=== PATIENT | male | born 1945 | race Caucasian/White ===

== ENCOUNTER 2018-02-22 10:11 | Inpatient (IN) | payer OTHER ==
[2018-02-22 11:29] LABS: BASO % 0.7 % (0-2.0); EOS % 2.9 % (0-4.5); HEMATOCRIT 33.8 % (35.4-49); HEMOGLOBIN 11.1 GM/dL (11.7-16.9); LYMPH % 11.9 % (8-40); MCH 29.4 pg (25.7-33.7); MCHC 32.7 g/dl (32.0-35.9); MEAN CELL VOLUME 89.7 fl (80-96); MEAN PLT VOLUME 11.1 fl (7.5-11.1); MONO % 8.1 % (3.8-10.2); NEUT % 76.4 % (42.8-82.8); PLATELET COUNT 251 K/MM3 (134-434); RBC 3.77 M/mm3 (4.00-5.60); RDW 14.2 % (11.9-15.9); WHITE BLOOD COUNT 9.8 K/mm3 (4.0-10.0)
--- NOTE | 2018-02-22 11:41 | PDOC ---
History of Present Illness - General Chief Complaint: Wound Stated Complaint: RIGHT FOOT PAIN Time Seen by Provider: 02/22/18 10:20 History Source: Care Provider Exam Limitations: Dementia - History of Present Illness Initial Comments: 02/22/18 11:38 Patient is a 72-year-old male with past medical history of IDDM, HTN, CABG, stents 3, CVA, HLD, dementia, who presents to the emergency department today with a right toe infection. Patient has dementia and is unable to communicate at baseline. He presents with his family who provides in history of present illness. Family states that they returned from the [place] today. He was treated at a local hospital in the for a toe infection to the right first toe. States that he received ampicillin and the wound was debrided in the hospital. They state that now they believe the toe was worse. Denies fevers, cough, nausea and vomiting. Past History - Travel Traveled outside of the country in the last 30 days: No Close contact w/someone who was outside of country & ill: No - Past Medical History Allergies/Adverse Reactions: Allergies Allergy/AdvReac Type Severity Reaction Status Date / Time No Known Allergies Allergy Verified 02/22/18 10:15 Home Medications: Ambulatory Orders Insulin (Novolog 70/30) [Novolog Mix 70/30 Flexpen -] 30 units SQ BIDI #0 pen Aspirin [ASA -] 81 mg PO HS #30 tab.chew 06/14/16 Atorvastatin Ca [Lipitor] 80 mg PO HS #30 tablet 06/14/16 Carvedilol [Coreg -] 25 mg PO BID #60 tablet 06/14/16 Clopidogrel Bisulfate [Plavix -] 75 mg PO DAILY #30 tablet 06/14/16 Insulin Aspart Prot/Insuln Asp [Novolog Mix 70-30 Flexpen Syrn] 10 unit SQ BIDAC #1 ml 06/14/16 Ranolazine [Ranexa -] 1,000 mg PO BID #60 tab 06/14/16 Spironolactone [Aldactone -] 25 mg PO DAILY #30 tablet 06/14/16 Thiamine HCl [Vitamin B1 -] 100 mg PO DAILY #30 tablet 06/14/16 Valsartan [Diovan] 160 mg PO DAILY #60 tablet 06/14/16 Cardiac Disorders: Yes COPD: No Dementia: Yes (CONFUSION) Diabetes: Yes HTN: Yes Hypercholesterolemia: Yes - Surgical History Cardiac Surgery: Yes (BYPASS AND STENT X 3) - Suicide/Smoking/Psychosocial Hx Smoking Status: No Smoking History: Never smoked Have you smoked in the past 12 months: No Number of Cigarettes Smoked Daily: 0 Hx Alcohol Use: No Drug/Substance Use Hx: No Substance Use Type: None Hx Substance Use Treatment: No Review of Systems - Review of Systems Able to Perform ROS?: No (Dementia) Is the patient limited Bel[place]ian proficient: No *Physical Exam - Vital Signs Last Vital Signs Temp Pulse Resp BP Pulse Ox 98 F 104 H 19 163/95 98 02/22/18 10:15 02/22/18 10:15 02/22/18 10:15 02/22/18 10:15 02/22/18 10:15 - Physical Exam Comments: 02/22/18 11:39 GENERAL: Well developed, well nourished. Awake and alert. No acute distress. HEENT: Normocephalic, atraumatic. PERRLA, EOMI. No conjunctival pallor. Sclera are non- icteric. Moist mucous membranes. Oropharynx is clear. NECK: Supple. Full ROM. No JVD. Carotid pulses 2+ and symmetric, without bruits. No thyromegaly. No lymphadenopathy. CARDIOVASCULAR: Regular rate and rhythm. No murmurs, rubs, or gallops. Distal pulses are 2+ and symmetric. PULMONARY: No evidence of respiratory distress. Lungs clear to auscultation bilaterally. No wheezing, rales or rhonchi. ABDOMINAL: Soft. Non-tender. Non-distended. No rebound or guarding. No organomegaly. Normoactive bowel sounds. MUSCULOSKELETAL Normal range of motion at all joints. No bony deformities or tenderness. No CVA tenderness. EXTREMITIES: R foot is cool to the touch with no palpable pulses. R 1st toe is necrotic with various stages of skin sloughing. No nail present. Clear drainaged noted from the toe. R ankle 1+ pittng edema. No cyanosis. No clubbing. No calf tenderness. SKIN: Warm and dry. Normal capillary refill. No rashes. No jaundice. NEUROLOGICAL: Alert, awake, appropriate. Cranial nerves 2-12 intact. No deficits to light touch and temperature in face, upper extremities and lower extremities. No motor deficits in the in face, upper extremities and lower extremities. Normoreflexic in the upper and lower extremities. Normal speech. Toes are down- going bilaterally. Gait is normal without ataxia. PSYCHIATRIC: Cooperative. Good eye contact. Appropriate mood and affect. ED Treatment Course - LABORATORY CBC & Chemistry Diagram: 02/23/18 07:01 02/23/18 07:01 - ADDITIONAL ORDERS Additional order review: 02/22/18 11:08 RBC 3.77 L MCV 89.7 MCHC 32.7 RDW 14.2 MPV 11.1 Neutrophils % 76.4 Lymphocytes % 11.9 D Monocytes % 8.1 Eosinophils % 2.9 Basophils % 0.7 - RADIOLOGY Radiology Studies Ordered: Category Date Time Status FOOT-RIGHT [RAD] Stat Radiology 02/22/18 10:53 Ordered Medical Decision Making - Medical Decision Making 02/22/18 12:48 Patient is a 72-year-old male with past medical history of IDDM, HTN, CABG, stents 3, CVA, HLD, dementia, who presents to the emergency department today with a worsening right toe infection. On exam, R 1st toe is necrotic and weeping. Foot is cool to the touch with no palpable pedal pulses. Lab work shows no leukocytosis. Troponin is 0.04 and appears to be about baseline when compared to old testing. Glucose elevated at 198. Given worsening infection according to family, pt covered with vancomycin and zosyn and symphony was paged. Consult for ID and vascular surgery placed. Case discussed with Germaine Mendoza [employer] HE[employer] EDUCATOR who accepts for admission. EKG: Rate 90 BPM, NSR, QTc 479 prolonged. T wave inversions in V4-V6. When compared to old EKG from 2016, unchanged. *DC/Admit/Observation/Transfer Diagnosis at time of Disposition: Necrosis of toe, IDDM (insulin dependent diabetes mellitus) - Discharge Dispostion Condition at time of disposition: Stable Decision to Admit order: Yes - Referrals - Patient Instructions - Post Discharge Activity
[2018-02-22 12:06] LABS: INR 1.19 (0.82-1.09); PROTHROMBIN TIME (PATIENT) 13.4 SEC (9.7-13.0)
[2018-02-22] MEDS ORDERED: HALOPERIDOL LACTATE 5 MG/ML ONE (12:55)
[2018-02-22] MEDS ORDERED: LORazepam 2 MG/ML SDV VIAL ONE (12:55)
[2018-02-22] MEDS ORDERED: HALOPERIDOL LACTATE 5 MG/ML IM ONE (12:55)
[2018-02-22 13:14] LABS: URINE APPEARANCE CLEAR; URINE BILIRUBIN NEGATIVE (<2.0 mg/dL); URINE COLOR YELLOW; URINE GLUCOSE (UA) 3+ (NEGATIVE); URINE KETONE NEGATIVE (NEGATIVE); URINE LEUK ESTERASE NEGATIVE (NEGATIVE); URINE NITRITE NEGATIVE (NEGATIVE); URINE UROBILINOGEN NEGATIVE mg/dL (0.2-1.0)
[2018-02-22 13:16] LABS: URINE PROTEIN 3+ (NEGATIVE)
[2018-02-22 13:17] LABS: URINE BACTERIA RARE /hpf (NONE SEEN)
[2018-02-22 14:58] LABS: ALBUMIN 2.8 g/dl (3.4-5.0); ALK PHOS 169 U/L (45-117); ANION GAP 8 (8-16); BILIRUBIN,TOTAL 0.3 mg/dL (0.2-1.0); BLOOD UREA NITROGEN 17 mg/dL (7-18); CALCIUM 8.8 mg/dL (8.5-10.1); CHLORIDE 106 mmol/L (98-107); CO2 24 mmol/L (21-32); GLUCOSE,RANDOM 198 mg/dL (74-106); POTASSIUM 4.6 mmol/L (3.5-5.1); SGOT/AST 39 U/L (15-37); SGPT/ALT 62 U/L (12-78); SODIUM 138 mmol/L (136-145); TOT PROT 7.2 g/dl (6.4-8.2)
[2018-02-22] MEDS ORDERED: VANCOMYCIN 1,000 MG in DEXTROSE 5%-WATER - 250 ML IVPB ONE (15:39)
[2018-02-22] MEDS ORDERED: PIPERACILLIN/TAZOB 3.375 GM 3.375 GM in DEXTROSE 5%-WATER - 50 ML IVPB ONE (15:39)
[2018-02-22] MEDS ORDERED: VANCOMYCIN 1 GRAM (PRE-DOCKED) 1,000 MG/250 ML BAG IVPB ONE (15:59)
[2018-02-22] MEDS ORDERED: PIPERACILLIN/TAZOB 3.375 GM 3.375 GM/50 ML BAG IVPB ONE ×2 (16:00→18:04)
--- NOTE | 2018-02-22 17:17 | HP ---
[email or web address] agency owner # [id number] (Lucero) CHIEF COMPLAINT: Right foot gangrene PCP: none HISTORY OF PRESENT ILLNESS: This is a 72 year old male with PMHx of IDDM, HTN, CABG, CVA, hyperlipidemia, dementia, who presented to the ED with right foot first digit gangrene. All information obtained from daughter, patient had just received Ativan and was sleeping. The daughter reports the patient just arrived [place] the [place] from [place] today and she was concerned about his right big toe. She reports he was treated for an infection in the and had a debridement there as well. She believes the toe is now worse. She states that the patient did not complain of any fevers or chills. ER course was notable for: (1) Temp 98, pulse 104, BP 163/95, resp 19, O2 98% on RA (2) Right foot x-ray with no acute pathology appreciated Recent Travel: returned from today PAST MEDICAL HISTORY: as above PAST SURGICAL HISTORY: as above Social History: Smoking: quit "a long time ago" Alcohol: Quit "20 years ago" Drugs: denies Family History: Allergies No Known Allergies Allergy (Verified 02/22/18 10:15) HOME MEDICATIONS: Home Medications Medication Instructions Recorded Insulin (Novolog 70/30) [Novolog 30 units SQ BIDI #0 pen 06/30/13 Mix 70/30 Flexpen -] Aspirin [ASA -] 81 mg PO HS #30 tab.chew 06/14/16 Atorvastatin Ca [Lipitor] 80 mg PO HS #30 tablet 06/14/16 Carvedilol [Coreg -] 25 mg PO BID #60 tablet 06/14/16 Clopidogrel Bisulfate [Plavix -] 75 mg PO DAILY #30 tablet 06/14/16 Insulin Aspart Prot/Insuln Asp 10 unit SQ BIDAC #1 ml 06/14/16 [Novolog Mix 70-30 Flexpen Syrn] Ranolazine [Ranexa -] 1,000 mg PO BID #60 tab 06/14/16 Spironolactone [Aldactone -] 25 mg PO DAILY #30 tablet 06/14/16 Thiamine HCl [Vitamin B1 -] 100 mg PO DAILY #30 tablet 06/14/16 Valsartan [Diovan] 160 mg PO DAILY #60 tablet 06/14/16 REVIEW OF SYSTEMS: obtained from daughter CONSTITUTIONAL: Absent: fever, chills HEENT: Absent: rhinorrhea, nasal congestion CARDIOVASCULAR: Absent: chest pain, syncope, palpitations, peripheral edema RESPIRATORY: Absent: cough, shortness of breath, dyspnea with exertion, orthopnea, wheezing, stridor, hemoptysis GASTROINTESTINAL: Absent: nausea, vomiting, diarrhea GENITOURINARY: Absent: dysuria, frequency, urgency, hesitancy, hematuria, flank pain MUSCULOSKELETAL: Right big toe with blackish discoloration and malodor. Was [place] in the [place] but it has gotten worse. Daughter is unaware of how long he has had it for Absent: myalgia, arthralgia, joint swelling, back pain, neck pain SKIN: Absent: rash, itching, pallor HEMATOLOGIC/IMMUNOLOGIC: Absent: easy bleeding, easy bruising ENDOCRINE: Absent: unexplained weight gain, unexplained weight loss NEUROLOGIC: Absent: headache, focal weakness or paresthesias, dizziness, unsteady gait, seizure, bladder or bowel incontinence PHYSICAL EXAMINATION Vital Signs - 24 hr 02/22/18 10:15 Temperature 98 F Pulse Rate 104 H Respiratory 19 Rate Blood Pressure 163/95 O2 Sat by Pulse 98 Oximetry (%) Physical Exam: Unable to obtain, patient becomes combative and starts to kick and punch MUSCULOSKELETAL: Right foot big toe with necrosis from tip extending to IP joint. Purulent drainage noted and malodorous. No DP/PT pulses appreciated on the right foot. Right foot/leg warm NEUROLOGICAL: Moving all extremities spontaneously Laboratory Results - last 24 hr 02/22/18 02/22/18 02/22/18 11:08 11:08 11:08 WBC 9.8 RBC 3.77 L Hgb 11.1 L Hct 33.8 L MCV 89.7 MCH 29.4 MCHC 32.7 RDW 14.2 Plt Count 251 D MPV 11.1 Absolute Neuts (auto) 7.5 Neutrophils % 76.4 Lymphocytes % 11.9 D Monocytes % 8.1 Eosinophils % 2.9 Basophils % 0.7 Nucleated RBC % 0 PT with INR 13.40 H INR 1.19 H Sodium Cancelled Potassium Cancelled Chloride Cancelled Carbon Dioxide Cancelled Anion Gap Cancelled BUN Cancelled Creatinine Cancelled Creat Clearance w eGFR Cancelled Random Glucose Cancelled Lactic Acid Calcium Cancelled Total Bilirubin Cancelled AST Cancelled ALT Cancelled Alkaline Phosphatase Cancelled Creatine Kinase Troponin I Total Protein Cancelled Albumin Cancelled Urine Color Urine Appearance Urine pH Ur Specific [place] Urine Protein Urine Glucose (UA) Urine Ketones Urine Blood Urine Nitrite Urine Bilirubin Urine Urobilinogen Ur Leukocyte Esterase Urine WBC (Auto) Urine RBC (Auto) Urine Bacteria 02/22/18 02/22/18 02/22/18 11:08 12:15 13:13 WBC RBC Hgb Hct MCV MCH MCHC RDW Plt Count MPV Absolute Neuts (auto) Neutrophils % Lymphocytes % Monocytes % Eosinophils % Basophils % Nucleated RBC % PT with INR INR Sodium 138 Potassium 4.6 Chloride 106 Carbon Dioxide 24 Anion Gap 8 BUN 17 Creatinine 1.0 Creat Clearance w eGFR > 60 Random Glucose 198 H Lactic Acid Cancelled Calcium 8.8 Total Bilirubin 0.3 AST 39 H D ALT 62 D Alkaline Phosphatase 169 H Creatine Kinase 82 Troponin I 0.04 D Total Protein 7.2 Albumin 2.8 L Urine Color Yellow Urine Appearance Clear Urine pH 7.0 Ur Specific [place] 1.018 Urine Protein 3+ H Urine Glucose (UA) 3+ H Urine Ketones Negative Urine Blood Negative Urine Nitrite Negative Urine Bilirubin Negative Urine Urobilinogen Negative Ur Leukocyte Esterase Negative Urine WBC (Auto) 1 Urine RBC (Auto) 5 Urine Bacteria Rare 02/22/18 02/22/18 13:13 13:13 WBC RBC Hgb Hct MCV MCH MCHC RDW Plt Count MPV Absolute Neuts (auto) Neutrophils % Lymphocytes % Monocytes % Eosinophils % Basophils % Nucleated RBC % PT with INR INR Sodium Potassium Chloride Carbon Dioxide Anion Gap BUN Creatinine Creat Clearance w eGFR Random Glucose Lactic Acid 1.6 Calcium Total Bilirubin AST ALT Alkaline Phosphatase Creatine Kinase Cancelled Troponin I Cancelled Total Protein Albumin Urine Color Urine Appearance Urine pH Ur Specific [place] Urine Protein Urine Glucose (UA) Urine Ketones Urine Blood Urine Nitrite Urine Bilirubin Urine Urobilinogen Ur Leukocyte Esterase Urine WBC (Auto) Urine RBC (Auto) Urine Bacteria Assessment: This is a 72 year old male with PMHx of IDDM, HTN, CABG, CVA, hyperlipidemia, dementia, who presented to the ED with right foot first digit gangrene. Plan: 1) Right foot first digit wet gangrene - F/u wound culture - Started on Vancomycin and Zosyn in the ED - Foot x-ray as above - F/u ESR, CRP - F/u ID consult for further recommendations - F/u surgery consult 2) Non-palpable right foot pulses - Right leg/foot warm - F/u arterial doppler to r/o obstruction 3) IDDM - BGM ACHS - Novolog 70/30 10u sq bid - Novolog sliding scale TIDAC 4) CAD s/p CABG and stenting - Continue ASA - Continue Plavix - Continue Ranexa 5) HTN - Continue Diovan - Continue Aldactone - Continue Coreg 6) Hyperlipidemia - Continue Lipitor 7) F/E/N: - Diabetic/sodium controlled diet - Monitor electrolytes 8) Prophylaxis: - Heparin 5,000u sq tid 9) Dispo: - Requires continued inpatient care CODE STATUS: FULL CODE Visit type - Emergency Visit Emergency Visit: Yes ED Registration Date: 02/22/18 Care time: The patient presented to the Emergency Department on the above date and was hospitalized for further evaluation of their emergent condition. - New Patient This patient is new to me today: Yes Date on this admission: 02/22/18 - Critical Care Critical Care patient: No Hospitalist Screening - Colonoscopy Questionnaire Colonoscopy Questionnaire: Colonoscopy Questionnaire - Patient: 50 - 75 years old and never had a screening colonoscopy: Unknown History of colon or rectal polyps, or CA: Unknown History of IBD, Crohn's disease or UC: Unknown History of abdominal radiation therapy as a child: Unknown - Relative: 1 with colon or rectal CA, or polyps at age 60 or younger: Unknown Colon or rectal CA diagnosed at age 45 or younger: Unknown Multiple relatives with colon or rectal CA: Unknown - Outcome: Screening Result: Negative Screen
[2018-02-22] MEDS ORDERED: PIPERACILLIN/TAZOB 3.375 GM 3.375 GM in DEXTROSE 5%-WATER - 50 ML IVPB SCH (18:00)
[2018-02-22] MEDS: PIPERACILLIN/TAZOB 3.375 GM 3.375 GM in DEXTROSE 5%-WATER - 50 ML IVPB SCH (20:08)
[2018-02-22] MEDS ORDERED: INSULIN SLIDING SCALE (NOVOLOG) 1 VIAL SQ SCH (22:00)
[2018-02-22] MEDS: CARVEDILOL 25 MG TABLET (FP) PO SCH (22:57)
[2018-02-22] MEDS: ASPIRIN 81 MG CHEWABLE TABLETS PO SCH (23:36)
[2018-02-22] MEDS: ATORVASTATIN CA 80 MG TABLET (FP) PO SCH (23:36)
[2018-02-22] MEDS: HEPARIN NA (PORCINE) 5,000 UNITS/ML 1ML VIAL SQ SCH (23:36)
[2018-02-22] MEDS: RANOLAZINE E.R. 1,000 MG TABLET (FP) PO SCH (23:36)
[2018-02-23] MEDS ORDERED: PIPERACILLIN/TAZOBACTAM 3.375 GM VIAL IVPB ONE ×3 (02:07→17:00)
[2018-02-23] MEDS ORDERED: DEXTROSE 5%-WATER - 50 ML IVPB ONE ×3 (02:07→17:00)
[2018-02-23] MEDS: PIPERACILLIN/TAZOB 3.375 GM 3.375 GM in DEXTROSE 5%-WATER - 50 ML IVPB SCH ×3 (02:10→17:05)
[2018-02-23] MEDS: INSULIN (NOVOLOG MIX 70/30) 100 UNITS/ML MDV SQ SCH ×2 (06:39→17:05)
[2018-02-23] MEDS: HEPARIN NA (PORCINE) 5,000 UNITS/ML 1ML VIAL SQ SCH ×3 (06:39→21:33)
[2018-02-23] MEDS: INSULIN SLIDING SCALE (NOVOLOG) 1 VIAL SQ SCH ×3 (06:40→16:43)
[2018-02-23] MEDS ORDERED: INSULIN (NOVOLOG) ASPART 100 UNITS/ML 10ML VIAL ONE ×2 (06:46→10:47)
[2018-02-23 08:19] LABS: BASO % 0.6 % (0-2.0); EOS % 3.5 % (0-4.5); HEMATOCRIT 32.8 % (35.4-49); MCH 29.8 pg (25.7-33.7); MCHC 33.4 g/dl (32.0-35.9); MEAN CELL VOLUME 89.3 fl (80-96); MEAN PLT VOLUME 11.2 fl (7.5-11.1); MONO % 7.3 % (3.8-10.2); NEUT % 80.6 % (42.8-82.8); PLATELET COUNT 210 K/MM3 (134-434); RBC 3.67 M/mm3 (4.00-5.60); WHITE BLOOD COUNT 10.1 K/mm3 (4.0-10.0)
[2018-02-23 08:44] LABS: CHLORIDE 102 mmol/L (98-107); GAMMA GLUTAMYL TRANSPEPTIDASE 212 U/L (5-85); POTASSIUM 5.1 mmol/L (3.5-5.1); SODIUM 135 mmol/L (136-145)
[2018-02-23 08:54] LABS: ALBUMIN 2.5 g/dl (3.4-5.0); ALK PHOS 139 U/L (45-117); ANION GAP 8 (8-16); BILIRUBIN,TOTAL 0.7 mg/dL (0.2-1.0); BLOOD UREA NITROGEN 15 mg/dL (7-18); CALCIUM 8.7 mg/dL (8.5-10.1); CO2 25 mmol/L (21-32); CREATININE 1.1 mg/dL (0.7-1.3); GLUCOSE,RANDOM 237 mg/dL (74-106); PHOSPHOROUS 3.2 mg/dL (2.5-4.9); SGOT/AST 25 U/L (15-37); SGPT/ALT 45 U/L (12-78); TOT PROT 6.7 g/dl (6.4-8.2)
[2018-02-23] MEDS ORDERED: RANOLAZINE E.R. 500 MG TABLET (FP) ONE ×2 (09:21→21:29)
[2018-02-23] MEDS: RANOLAZINE E.R. 1,000 MG TABLET (FP) PO SCH ×2 (09:27→21:34)
[2018-02-23] MEDS: CARVEDILOL 25 MG TABLET (FP) PO SCH ×2 (09:27→21:33)
[2018-02-23] MEDS: VALSARTAN 160 MG TABLET (UD) PO SCH (09:27)
[2018-02-23] MEDS: SPIRONOLACTONE 25 MG TABLET (FP) PO SCH (09:27)
[2018-02-23] MEDS: THIAMINE HCL 100 MG TABLET (FP) PO SCH (09:27)
[2018-02-23] MEDS: CLOPIDOGREL BISULFATE 75 MG TABLET (FP) PO SCH (09:27)
[2018-02-23] MEDS ORDERED: VANCOMYCIN 1 GM PREMIX - 1 GM/200 ML BAG IVPB ONE (10:00)
--- NOTE | 2018-02-23 11:00 | PN ---
Progress Note (short form) - Note Progress Note: Subjective: The patient was seen at the bedside, he has no complaints at this time Current Medications Generic Name Dose Route Start Last Admin Trade Name Jeremiah PRN Reason Stop Dose Admin Aspirin 81 mg 02/22/18 22:00 02/22/18 23:36 Asa - PO Not Given HS MAXIMINO Atorvastatin Calcium 80 mg 02/22/18 22:00 02/22/18 23:36 Lipitor - PO Not Given HS MAXIMINO Carvedilol 25 mg 02/22/18 22:00 02/23/18 09:27 Coreg - PO 25 mg BID MAXIMINO Administration Clopidogrel Bisulfate 75 mg 02/23/18 10:00 02/23/18 09:27 Plavix - PO 75 mg DAILY MAXIMINO Administration Heparin Sodium (Porcine) 5,000 unit 02/22/18 22:00 02/23/18 06:39 Heparin - SQ 5,000 unit TID MAXIMINO Administration Piperacillin Sod/Tazobactam 50 mls @ 100 mls/hr 02/22/18 18:00 Sod 3.375 gm/ Dextrose IVPB Q8H-IV MAXIMINO Protocol Vancomycin HCl 1 gm in 200 mls @ 133.333 mls/hr 02/23/18 10:00 02/23/18 10:11 Vancomycin 1 Gm Premix - IVPB 02/23/18 11:29 133.333 mls/hr ONCE ONE Administration Protocol Insulin Aspart 10 units 02/23/18 07:00 02/23/18 06:39 Novolog Mix 70/30 Vial SQ 10 units BIDAC MAXIMINO Administration Insulin Aspart 1 vial 02/23/18 07:00 02/23/18 10:53 Novolog Vial Sliding Scale - SQ 4 units TIDAC MAXIMINO Administration Protocol Ranolazine 1,000 mg 02/22/18 22:00 02/23/18 09:27 Ranexa - PO 1,000 mg BID MAXIMINO Administration Spironolactone 25 mg 02/23/18 10:00 02/23/18 09:27 Aldactone - PO 25 mg DAILY MAXIMINO Administration Thiamine HCl 100 mg 02/23/18 10:00 02/23/18 09:27 Vitamin B1 - PO 100 mg DAILY MAXIMINO Administration Valsartan 160 mg 02/23/18 10:00 02/23/18 09:27 Diovan - PO 160 mg DAILY MAXIMINO Administration Objective: Vital Signs Period Temp Pulse Resp BP Sys/[place] Pulse Ox Last 24 Hr 97.6 F-98.2 F 96-101 18-20 150-165/88-104 98 Physical Exam: Patient refused again, he became combative Right big toe visualized, some oozing noted. Malodorous CBCD WBC 10.1 K/mm3 (4.0-10.0) H 02/23/18 07:01 RBC 3.67 M/mm3 (4.00-5.60) L 02/23/18 07:01 Hgb 11.0 GM/dL (11.7-16.9) L 02/23/18 07:01 Hct 32.8 % (35.4-49) L 02/23/18 07:01 MCV 89.3 fl (80-96) 02/23/18 07:01 MCHC 33.4 g/dl (32.0-35.9) 02/23/18 07:01 RDW 14.0 % (11.9-15.9) 02/23/18 07:01 Plt Count 210 K/MM3 (134-434) 02/23/18 07:01 MPV 11.2 fl (7.5-11.1) H 02/23/18 07:01 CMP Sodium 135 mmol/L (136-145) L 02/23/18 07:01 Potassium 5.1 mmol/L (3.5-5.1) 02/23/18 07:01 Chloride 102 mmol/L (98-107) 02/23/18 07:01 Carbon Dioxide 25 mmol/L (21-32) 02/23/18 07:01 Anion Gap 8 (8-16) 02/23/18 07:01 BUN 15 mg/dL (7-18) 02/23/18 07:01 Creatinine 1.1 mg/dL (0.7-1.3) 02/23/18 07:01 Creat Clearance w eGFR > 60 (>60) 02/23/18 07:01 Random Glucose 237 mg/dL (74-106) H 02/23/18 07:01 Calcium 8.7 mg/dL (8.5-10.1) 02/23/18 07:01 Total Bilirubin 0.7 mg/dL (0.2-1.0) 02/23/18 07:01 AST 25 U/L (15-37) D 02/23/18 07:01 ALT 45 U/L (12-78) D 02/23/18 07:01 Alkaline Phosphatase 139 U/L (45-117) H D 02/23/18 07:01 Total Protein 6.7 g/dl (6.4-8.2) 02/23/18 07:01 Albumin 2.5 g/dl (3.4-5.0) L 02/23/18 07:01 CARDIAC ENZYMES Creatine Kinase 82 IU/L (39-308) 02/22/18 13:13 Troponin I 0.04 ng/ml (0.00-0.05) D 02/22/18 13:13 Microbiology 02/22/18 12:15 Urine - Urine Clean Catch Urine Culture - Final NO GROWTH OBTAINED 02/22/18 11:00 Toe - Right Hallux Gram Stain - Final Assessment: This is a 72 year old male with PMHx of IDDM, HTN, CABG, CVA, hyperlipidemia, dementia, who presented to the ED with right foot first digit gangrene. Plan: 1) Right foot first digit wet gangrene - F/u wound culture - Started on Vancomycin and Zosyn in the ED - Foot x-ray with no evidence of osteo - Patient has stents but it is unclear if MRI compatible. Will not be able to perform at this time - ESR/CRP elevated - F/u ID consult for further recommendations - F/u surgery consult 2) Non-palpable right foot pulses - Right leg/foot warm - F/u arterial doppler to r/o obstruction 3) IDDM - BGM ACHS - Novolog 70/30 10u sq bid - Novolog sliding scale TIDAC 4) CAD s/p CABG and stenting - Continue ASA - Continue Plavix - Continue Ranexa 5) HTN - Continue Diovan - Continue Aldactone - Continue Coreg 6) Hyperlipidemia - Continue Lipitor 7) F/E/N: - Diabetic/sodium controlled diet - Monitor electrolytes 8) Prophylaxis: - Heparin 5,000u sq tid 9) Dispo: - Requires continued inpatient care CODE STATUS: FULL CODE Visit type - Emergency Visit Emergency Visit: Yes ED Registration Date: 02/22/18 Care time: The patient presented to the Emergency Department on the above date and was hospitalized for further evaluation of their emergent condition. - New Patient This patient is new to me today: No - Critical Care Critical Care patient: No
--- NOTE | 2018-02-23 11:15 | CON.ID ---
Consult Consult Specialty:: infectious diseases Reason for Consultation:: gangrene of the rt toe - History of Present Illness Chief Complaint: gangrene of the rt toe History of Present Illness: 72 year old male with PMHx of IDDM, HTN, CABG, CVA, hyperlipidemia, dementia, admitted with right foot first digit gangrene. All information obtained from daughter, patient sleeping. The daughter reports the patient just arrived to the [place] from [facility] today and she was concerned about his right big toe. She reports [place] and had a debridement there as well. She believes the toe is now worse. She states that the patient did not complain of any fevers or chills. according to them the toe problems has been going on for last 3 months and has worsened they thought that he was not improving that is why they thought they would bring him here - History Source History Provided By: Family Member - Past Medical History Cardio/Vascular: Yes: CAD, HTN, MO - Past Surgical History Past Surgical History: Yes: CABG - Alcohol/Substance Use Hx Alcohol Use: No - Smoking History Smoking history: Never smoked Have you smoked in the past 12 months: No Aproximately how many cigarettes per day: 0 Home Medications - Allergies Allergies/Adverse Reactions: Allergies Allergy/AdvReac Type Severity Reaction Status Date / Time No Known Allergies Allergy Verified 02/22/18 10:15 - Home Medications Home Medications: Ambulatory Orders Insulin (Novolog 70/30) [Novolog Mix 70/30 Flexpen -] 30 units SQ BIDI #0 pen Aspirin [ASA -] 81 mg PO HS #30 tab.chew 06/14/16 Atorvastatin Ca [Lipitor] 80 mg PO HS #30 tablet 06/14/16 Carvedilol [Coreg -] 25 mg PO BID #60 tablet 06/14/16 Clopidogrel Bisulfate [Plavix -] 75 mg PO DAILY #30 tablet 06/14/16 Insulin Aspart Prot/Insuln Asp [Novolog Mix 70-30 Flexpen Syrn] 10 unit SQ BIDAC #1 ml 06/14/16 Ranolazine [Ranexa -] 1,000 mg PO BID #60 tab 06/14/16 Spironolactone [Aldactone -] 25 mg PO DAILY #30 tablet 06/14/16 Thiamine HCl [Vitamin B1 -] 100 mg PO DAILY #30 tablet 06/14/16 Valsartan [Diovan] 160 mg PO DAILY #60 tablet 06/14/16 Review of Systems - Review of Systems Constitutional: reports: No Symptoms Eyes: reports: No Symptoms HENT: reports: No Symptoms Neck: reports: No Symptoms Cardiovascular: reports: No Symptoms Respiratory: reports: No Symptoms Gastrointestinal: reports: No Symptoms Genitourinary: reports: No Symptoms Musculoskeletal: reports: No Symptoms Integumentary: reports: Erythema, Wound (rt toe wound gangrene) Neurological: reports: No Symptoms Endocrine: reports: No Symptoms Hematology/Lymphatic: reports: No Symptoms Psychiatric: reports: No Symptoms Physical Exam Vital Signs: Vital Signs Temperature 97.6 F 02/23/18 05:44 Pulse Rate 96 H 02/23/18 05:44 Respiratory Rate 20 02/23/18 05:44 Blood Pressure 150/94 02/23/18 05:44 O2 Sat by Pulse Oximetry (%) 98 02/22/18 23:00 Constitutional: Yes: No Distress, Calm Cardiovascular: Yes: Regular Rate and Rhythm Respiratory: Yes: Regular, CTA Bilaterally Gastrointestinal: Yes: Normal Bowel Sounds, Soft Musculoskeletal: Yes: WNL Extremities: Yes: Erythema, Other (gangrene of the rt toe) Wound/Incision: Yes: Open to air, Other (gangrene) Neurological: Yes: Alert, Oriented Psychiatric: Yes: Alert, Oriented Labs: CBC, BMP 02/23/18 07:01 02/23/18 07:01 Imaging - Results X-ray: Report Reviewed, Image Reviewed Assessment/Plan his is a 72 year old male with PMHx of IDDM, HTN, CABG, CVA, hyperlipidemia, dementia, who presented to the ED with right foot first digit gangrene. 1) Right foot first digit wet gangrene 2) Non-palpable right foot pulses 3) IDDM 4) CAD s/p CABG and stenting 5) HTN 6) Hyperlipidemia this patient with gangrene of the toe and cold foot rt admitted and started on vanco and zoysn plan vascular to see dopplers on the leg to see if he has any pulse is going to need amputation should do ct scan of the leg will need also angio to see the flow continue abx
--- NOTE | 2018-02-23 16:20 | PN ---
Progress Note (short form) - Note Progress Note: Vascular Surgery Pt seen and examined. Right great toe dry gangrene. Family said at [facility] that he has had this for over three months. On exam, pt does not have any palpable pulses. Foot is warm. CTA ordered to look at runoff into right foot. Will follow Mulugeta Lomeli DO
--- NOTE | 2018-02-23 17:31 | EKG ---
Test Reason : Blood Pressure : / mmHG Vent. Rate : 090 BPM Atrial Rate : 090 BPM P-R Int : 140 ms QRS Dur : 104 ms QT Int : 392 ms P-R-T Axes : 066 -21 166 degrees QTc Int : 479 ms NORMAL SINUS RHYTHM POSSIBLE LEFT ATRIAL ENLARGEMENT LEFT VENTRICULAR HYPERTROPHY PROLONGED QT ABNORMAL ECG WHEN COMPARED WITH ECG OF 12-JUN-2016 08:34, PREMATURE ATRIAL COMPLEXES ARE NO LONGER PRESENT Confirmed by JR SUAREZ, HERBERT ([id number]) on 02/23/2018 5:31:22 PM Referred By: Confirmed By:HERBERT NORRIS MD
[2018-02-23] MEDS: ASPIRIN 81 MG CHEWABLE TABLETS PO SCH (21:33)
[2018-02-23] MEDS: ATORVASTATIN CA 80 MG TABLET (FP) PO SCH (21:33)
[2018-02-24] MEDS ORDERED: PIPERACILLIN/TAZOBACTAM 3.375 GM VIAL IVPB ONE ×3 (01:39→17:06)
[2018-02-24] MEDS ORDERED: DEXTROSE 5%-WATER - 50 ML IVPB ONE ×3 (01:39→17:06)
[2018-02-24] MEDS: PIPERACILLIN/TAZOB 3.375 GM 3.375 GM in DEXTROSE 5%-WATER - 50 ML IVPB SCH ×3 (01:44→17:18)
[2018-02-24] MEDS: HEPARIN NA (PORCINE) 5,000 UNITS/ML 1ML VIAL SQ SCH ×3 (05:56→22:20)
[2018-02-24] MEDS: INSULIN SLIDING SCALE (NOVOLOG) 1 VIAL SQ SCH ×3 (06:09→17:04)
[2018-02-24] MEDS: INSULIN (NOVOLOG MIX 70/30) 100 UNITS/ML MDV SQ SCH ×2 (08:03→16:57)
--- NOTE | 2018-02-24 09:00 | PN ---
Progress Note (short form) - Note Progress Note: CTA with bilat LE runoff completed. Awaiting official results. Vascular surgery to cont following.
[2018-02-24] MEDS ORDERED: RANOLAZINE E.R. 500 MG TABLET (FP) ONE ×2 (09:51→22:18)
[2018-02-24] MEDS ORDERED: PT OWN MED DRAWER 7, Y5N ONE (09:52)
[2018-02-24] MEDS: VALSARTAN 160 MG TABLET (UD) PO SCH (09:55)
[2018-02-24] MEDS: THIAMINE HCL 100 MG TABLET (FP) PO SCH (09:55)
[2018-02-24] MEDS: CLOPIDOGREL BISULFATE 75 MG TABLET (FP) PO SCH (09:55)
[2018-02-24] MEDS: CARVEDILOL 25 MG TABLET (FP) PO SCH ×2 (09:56→22:20)
[2018-02-24] MEDS: VANCOMYCIN 1,250 MG in DEXTROSE 5%-WATER - 250 ML IVPB SCH (09:56)
[2018-02-24] MEDS: SPIRONOLACTONE 25 MG TABLET (FP) PO SCH (09:56)
[2018-02-24] MEDS: RANOLAZINE E.R. 1,000 MG TABLET (FP) PO SCH ×2 (09:57→22:21)
--- NOTE | 2018-02-24 15:04 | PN ---
Progress Note, Physician History of Present Illness: had episodes of vomiting got imaging studies done awaitng for reports - Current Medication List Current Medications: Active Medications Aspirin (Asa -) 81 mg PO HS [facility] Last Admin: 02/23/18 21:33 Dose: 81 mg Atorvastatin Calcium (Lipitor -) 80 mg PO HS [facility] Last Admin: 02/23/18 21:33 Dose: 80 mg Carvedilol (Coreg -) 25 mg PO BID [facility] Last Admin: 02/24/18 09:56 Dose: 25 mg Clopidogrel Bisulfate (Plavix -) 75 mg PO DAILY [facility] Last Admin: 02/24/18 09:55 Dose: 75 mg Heparin Sodium (Porcine) (Heparin -) 5,000 unit SQ TID [facility] Last Admin: 02/24/18 13:06 Dose: 5,000 unit Vancomycin HCl 1,250 mg/ (Dextrose) 250 mls @ 250 mls/2 hr IVPB DAILY [facility]; Protocol Last Admin: 02/24/18 09:56 Dose: 250 mls/2 hr Piperacillin Sod/Tazobactam (Sod 3.375 gm/ Dextrose) 50 mls @ 100 mls/hr IVPB Q8H-IV [facility]; Protocol Last Admin: 02/24/18 09:56 Dose: 100 mls/hr Insulin Aspart (Novolog Mix 70/30 Vial) 10 units SQ BIDAC [facility] Last Admin: 02/24/18 08:03 Dose: 10 units Insulin Aspart (Novolog Vial Sliding Scale -) 1 vial SQ TIDAC [facility]; Protocol Last Admin: 02/24/18 10:56 Dose: Not Given Ranolazine (Ranexa -) 1,000 mg PO BID [facility] Last Admin: 02/24/18 09:57 Dose: 1,000 mg Spironolactone (Aldactone -) 25 mg PO DAILY [facility] Last Admin: 02/24/18 09:56 Dose: 25 mg Thiamine HCl (Vitamin B1 -) 100 mg PO DAILY [facility] Last Admin: 02/24/18 09:55 Dose: 100 mg Valsartan (Diovan -) 160 mg PO DAILY [facility] Last Admin: 02/24/18 09:55 Dose: 160 mg - Objective Vital Signs: Vital Signs Temperature 98.1 F 02/24/18 10:00 Pulse Rate 74 02/24/18 10:00 Respiratory Rate 20 02/24/18 10:00 Blood Pressure 120/66 02/24/18 10:00 O2 Sat by Pulse Oximetry (%) 98 02/24/18 09:00 Constitutional: Yes: Calm, Mild Distress Cardiovascular: Yes: Regular Rate and Rhythm Respiratory: Yes: Regular, CTA Bilaterally Musculoskeletal: Yes: WNL Extremities: Yes: Other Neurological: Yes: Alert Psychiatric: Yes: Alert Labs: CBC, BMP 02/23/18 07:01 02/23/18 07:01 INR, PTT INR 1.19 (0.82-1.09) H 02/22/18 11:08 Assessment/Plan his is a 72 year old male with PMHx of IDDM, HTN, CABG, CVA, hyperlipidemia, dementia, who presented to the ED with right foot first digit gangrene. 1) Right foot first digit wet gangrene 2) Non-palpable right foot pulses 3) IDDM 4) CAD s/p CABG and stenting 5) HTN 6) Hyperlipidemia plan continue abx await for identification of the bacteria rest continue current mgmt patient needs probably amputation
[2018-02-24] MEDS ORDERED: MAG HYDROX/AL HYDROX/SIMETH -MYLANTA- ORAL SUSPENSION PO ONE (16:30)
--- NOTE | 2018-02-24 16:34 | PN ---
Progress Note (short form) - Note Progress Note: Subjective: The patient was seen at the bedside, he has no complaints at this time Current Medications Generic Name Dose Route Start Last Admin Trade Name Jeremiah PRN Reason Stop Dose Admin Al Hydroxide/Mg Hydroxide 30 ml 02/24/18 16:30 Mylanta Suspension - PO 02/24/18 16:31 ONCE ONE Aspirin 81 mg 02/22/18 22:00 02/23/18 21:33 Asa - PO 81 mg HS [facility] Administration Atorvastatin Calcium 80 mg 02/22/18 22:00 02/23/18 21:33 Lipitor - PO 80 mg HS [facility] Administration Carvedilol 25 mg 02/22/18 22:00 02/24/18 09:56 Coreg - PO 25 mg BID [facility] Administration Clopidogrel Bisulfate 75 mg 02/23/18 10:00 02/24/18 09:55 Plavix - PO 75 mg DAILY [facility] Administration Heparin Sodium (Porcine) 5,000 unit 02/22/18 22:00 02/24/18 13:06 Heparin - SQ 5,000 unit TID [facility] Administration Vancomycin HCl 1,250 mg/ 250 mls @ 250 mls/2 hr 02/24/18 10:00 02/24/18 09:56 Dextrose IVPB 250 mls/2 hr DAILY [facility] Administration Protocol Piperacillin Sod/Tazobactam 50 mls @ 100 mls/hr 02/23/18 18:00 02/24/18 09:56 Sod 3.375 gm/ Dextrose IVPB 100 mls/hr Q8H-IV [facility] Administration Protocol Insulin Aspart 10 units 02/23/18 07:00 02/24/18 08:03 Novolog Mix 70/30 Vial SQ 10 units BIDAC [facility] Administration Insulin Aspart 1 vial 02/23/18 07:00 02/24/18 10:56 Novolog Vial Sliding Scale - SQ Not Given TIDAC [facility] Protocol Ranolazine 1,000 mg 02/22/18 22:00 02/24/18 09:57 Ranexa - PO 1,000 mg BID [facility] Administration Spironolactone 25 mg 02/23/18 10:00 02/24/18 09:56 Aldactone - PO 25 mg DAILY [facility] Administration Thiamine HCl 100 mg 02/23/18 10:00 02/24/18 09:55 Vitamin B1 - PO 100 mg DAILY [facility] Administration Valsartan 160 mg 02/23/18 10:00 02/24/18 09:55 Diovan - PO 160 mg DAILY [facility] Administration Objective: Vital Signs Period Temp Pulse Resp BP Sys/[place] Pulse Ox Last 24 Hr 98.0 F-98.6 F 69-88 18-20 110-138/62-71 97-98 Physical Exam: Patient refused again Right big toe visualized. Malodorous CBCD WBC 10.1 K/mm3 (4.0-10.0) H 02/23/18 07:01 RBC 3.67 M/mm3 (4.00-5.60) L 02/23/18 07:01 Hgb 11.0 GM/dL (11.7-16.9) L 02/23/18 07:01 Hct 32.8 % (35.4-49) L 02/23/18 07:01 MCV 89.3 fl (80-96) 02/23/18 07:01 MCHC 33.4 g/dl (32.0-35.9) 02/23/18 07:01 RDW 14.0 % (11.9-15.9) 02/23/18 07:01 Plt Count 210 K/MM3 (134-434) 02/23/18 07:01 MPV 11.2 fl (7.5-11.1) H 02/23/18 07:01 CMP Sodium 135 mmol/L (136-145) L 02/23/18 07:01 Potassium 5.1 mmol/L (3.5-5.1) 02/23/18 07:01 Chloride 102 mmol/L (98-107) 02/23/18 07:01 Carbon Dioxide 25 mmol/L (21-32) 02/23/18 07:01 Anion Gap 8 (8-16) 02/23/18 07:01 BUN 15 mg/dL (7-18) 02/23/18 07:01 Creatinine 1.1 mg/dL (0.7-1.3) 02/23/18 07:01 Creat Clearance w eGFR > 60 (>60) 02/23/18 07:01 Random Glucose 237 mg/dL (74-106) H 02/23/18 07:01 Calcium 8.7 mg/dL (8.5-10.1) 02/23/18 07:01 Total Bilirubin 0.7 mg/dL (0.2-1.0) 02/23/18 07:01 AST 25 U/L (15-37) D 02/23/18 07:01 ALT 45 U/L (12-78) D 02/23/18 07:01 Alkaline Phosphatase 139 U/L (45-117) H D 02/23/18 07:01 Total Protein 6.7 g/dl (6.4-8.2) 02/23/18 07:01 Albumin 2.5 g/dl (3.4-5.0) L 02/23/18 07:01 CARDIAC ENZYMES Creatine Kinase 82 IU/L (39-308) 02/22/18 13:13 Troponin I 0.04 ng/ml (0.00-0.05) D 02/22/18 13:13 Microbiology 02/22/18 11:00 Toe - Right Hallux Gram Stain - Final 02/22/18 11:00 Toe - Right Hallux Wound Culture - Preliminary Non Lactose Fermenting Gnb Lactose Fermenting Neg Bacilli Non Lactose Fermenting Gnb#2 Staphylococcus Latex Coag Pos Group D Strep Or Entero Coccus 02/22/18 11:00 Blood - Peripheral Venous Blood Culture - Preliminary NO GROWTH OBTAINED AFTER 48 HOURS, INCUBATION TO CONTINUE FOR 3 DAYS. 02/22/18 11:00 Blood - Peripheral Venous Blood Culture - Preliminary NO GROWTH OBTAINED AFTER 48 HOURS, INCUBATION TO CONTINUE FOR 3 DAYS. 02/22/18 12:15 Urine - Urine Clean Catch Urine Culture - Final NO GROWTH OBTAINED Assessment: This is a 72 year old male with PMHx of IDDM, HTN, CABG, CVA, hyperlipidemia, dementia, who presented to the ED with right foot first digit gangrene. Plan: 1) Right foot first digit dry gangrene - F/u wound culture - Continue Vancomycin and Zosyn - Foot x-ray with no evidence of osteo - Patient has stents but it is unclear if MRI compatible. Will not be able to perform MRI at this time - ESR/CRP elevated - Appreciate ID consult for further recommendations - Appreciate surgery consult 2) Non-palpable right foot pulses - Right leg/foot warm - CTA with runoff: diffuse aortoiliac and bilateral lower extremity atherosclerotic disease most severe and extensive in the femoropopliteal and infrapopliteal arteries with essentially no vessel runoff in the right lower extremity and one vessel runoff in the left lower extremity - Discussed with Dr. Lomeli, for possible angio tomorrow - F/u cards consult for clearance 3) IDDM - BGM ACHS - Novolog 70/30 10u sq bid - Novolog sliding scale TIDAC 4) CAD s/p CABG and stenting - Continue ASA - Continue Plavix - Continue Ranexa 5) HTN - Continue Diovan - Continue Aldactone - Continue Coreg 6) Hyperlipidemia - Continue Lipitor 7) F/E/N: - Diabetic/sodium controlled diet - Monitor electrolytes 8) Prophylaxis: - Heparin 5,000u sq tid 9) Dispo: - Requires continued inpatient care CODE STATUS: FULL CODE Visit type - Emergency Visit Emergency Visit: Yes ED Registration Date: 02/22/18 Care time: The patient presented to the Emergency Department on the above date and was hospitalized for further evaluation of their emergent condition. - New Patient This patient is new to me today: No - Critical Care Critical Care patient: No
[2018-02-24] MEDS ORDERED: DOCUSATE SODIUM 100 MG CAPSULE (FP) PO PRN (16:54)
--- NOTE | 2018-02-24 17:33 | CON.CARD ---
Consult Consult Specialty:: cardiology Reason for Consultation:: clearance for LE angiography - History of Present Illness Chief Complaint: Pt is lethargic; when asked how he feels, says "good" softly, then lapses back to snoring. Daughter and are at bedside. History of Present Illness: Patient is a 72-year-old male ([facility]) with past medical history of IDDM, systolic CHF, HTN, CABG ?2008 after [place], stents ?3, HLD, CVA x 5, PAD , dementia, who presents to the emergency department today with a right toe infection. Patient has dementia and is unable to communicate at baseline. He presents with his family who provides in history of present illness. Family states that they returned from the [facility] today. He was treated at a local hospital in the for a toe infection to the right first toe. States that he received ampicillin and the wound was debrided in the hospital. They state that now they believe the toe was worse. Denies fevers, cough, nausea and vomiting. 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 Cardio/Vascular: Yes: CAD, CHF (systolic), HTN, [place] Psych: Yes: Other Musculoskeletal: Yes: Other (reported right-sided weakness post-CVA (family states; pt uncooperative)) - Past Surgical History Past Surgical History: Yes: CABG, Stent (2012) - Alcohol/Substance Use Hx Alcohol Use: No - Smoking History Smoking history: Never smoked Have you smoked in the past 12 months: No Aproximately how many cigarettes per day: 0 - Social History History of Recent Travel: Yes Home Medications - Allergies Allergies/Adverse Reactions: Allergies Allergy/AdvReac Type Severity Reaction Status Date / Time No Known Allergies Allergy Verified 02/22/18 10:15 - Home Medications Home Medications: Ambulatory Orders Insulin (Novolog 70/30) [Novolog Mix 70/30 Flexpen -] 30 units SQ BIDI #0 pen Aspirin [ASA -] 81 mg PO HS #30 tab.chew 06/14/16 Atorvastatin Ca [Lipitor] 80 mg PO HS #30 tablet 06/14/16 Carvedilol [Coreg -] 25 mg PO BID #60 tablet 06/14/16 Clopidogrel Bisulfate [Plavix -] 75 mg PO DAILY #30 tablet 06/14/16 Insulin Aspart Prot/Insuln Asp [Novolog Mix 70-30 Flexpen Syrn] 10 unit SQ BIDAC #1 ml 06/14/16 Ranolazine [Ranexa -] 1,000 mg PO BID #60 tab 06/14/16 Spironolactone [Aldactone -] 25 mg PO DAILY #30 tablet 06/14/16 Thiamine HCl [Vitamin B1 -] 100 mg PO DAILY #30 tablet 06/14/16 Valsartan [Diovan] 160 mg PO DAILY #60 tablet 06/14/16 Review of Systems Unable to obtain ROS, reason: barely speaks - Review of Systems Constitutional: reports: Lethargy, Weakness Eyes: reports: Other (does not open eyes; family says he has right eye visual problems) HENT: reports: No Symptoms Neck: reports: Decreased ROM Cardiovascular: reports: No Symptoms Respiratory: reports: No Symptoms Gastrointestinal: reports: No Symptoms Genitourinary: reports: No Symptoms Breasts: reports: No Symptoms Reported Musculoskeletal: reports: Muscle Weakness Integumentary: reports: No Symptoms Neurological: reports: Weakness Psychiatric: reports: Other - Risk Factors Known Risk Factors: Yes: Age, Diabetes Mellitus, Gender, Hypercholesterolemia, Hypertension, Physical Inactivity, Prior UT /Emb Stroke, Other (systolic CHF) Vital Signs: Vital Signs Temperature 98.6 F 02/24/18 15:05 Pulse Rate 79 02/24/18 15:05 Respiratory Rate 20 02/24/18 10:00 Blood Pressure 122/71 02/24/18 15:05 O2 Sat by Pulse Oximetry (%) 98 02/24/18 09:00 Constitutional: Yes: Other (lethargic; barely responds) Eyes: Yes: Other (does not open) HENT: Yes: WNL Neck: Yes: Decreased ROM Respiratory: Yes: Regular Gastrointestinal: Yes: Soft Renal/: No: Anuria Cardiovascular: Yes: Regular Rate and Rhythm JVD: No Carotid Bruit: No PMI: Non-Displaced Heart Sounds: Yes: S1, S2 Murmur: Yes: Systolic Murmur, Grade 2 Musculoskeletal: Yes: Muscle Weakness Extremities: Yes: Cool Edema: Yes Edema: LLE: Trace, RLE: Trace Peripheral Pulses WNL: No Peripheral Pulses: 1+ Left Doralis Pedis, 1+ Right Dorsalis Pedis Integumentary: Yes: Other (right great toe black) Neurological: Yes: Lethargy, Weakness Psychiatric: Yes: Other (reported dementia, especially after CVAs) - Other Data Labs, Other Data: CBC, BMP 02/23/18 07:01 02/23/18 07:01 INR, PTT INR 1.19 (0.82-1.09) H 02/22/18 11:08 Abnormal Lab Results 02/23/18 07:01 Sodium 135 L Random Glucose 237 H GGT 212 H Alkaline Phosphatase 139 H D Albumin 2.5 L HDL Cholesterol 30 L Echo: Report Reviewed Prior Cardiac Procedures: CABG, Cardiac Catheterization, PTCA with Stent Ejection Fraction %: LVEF < 40 % Imaging - Results EKG: Image Reviewed (NSR; LAE; LVH) Problem List - Problems (1) IDDM (insulin dependent diabetes mellitus) Code(s): E11.9 - TYPE 2 DIABETES MELLITUS WITHOUT COMPLICATIONS; Z79.4 - BANK BOSS (CURRENT) USE OF INSULIN (2) Necrosis of toe Assessment/Plan: CTA results noted: extensive bilateral arterial disease. See "Coronary artery disease" regarding prior coronary angiogram. Code(s): I96 - GANGRENE, NOT ELSEWHERE CLASSIFIED (3) Chronic systolic (congestive) heart failure Assessment/Plan: Moderately reduced LVEF noted on 2015 ECHO; f/u study in am. Presently on valsartan, carvedilol, Ranexa, and spironolactone. F/u BUN/Cr, Is and Os, daily weight, electrolytes. Code(s): I50.22 - CHRONIC SYSTOLIC (CONGESTIVE) HEART FAILURE (4) Coronary artery disease Assessment/Plan: Pt had CABG in ?2007 after [place], per family. Discussed case with Dr. Stef Mackey who, in 2012, performed coronary angiogram. Triple-vessel disease was noted; an LAD stent was placed, and plans were made for staged PCI of RCA and JOE; pt, however, did not return for f/u. Will obtain records of coronary angiogram. These findings should be taken into consideration prior to decision on LE procedure. Code(s): I25.10 - ATHSCL HEART DISEASE OF [place] CORONARY ARTERY W/O ANG PCTRS Qualifiers: Coronary Disease-Associated Artery/Lesion type: [place] artery [place] vs. transplanted heart: [place] heart Associated angina: without angina Qualified Code(s): I25.10 - Atherosclerotic heart disease of [place] coronary artery without angina pectoris (5) Dementia Assessment/Plan: see under "CVA" Code(s): F03.90 - UNSPECIFIED DEMENTIA WITHOUT BEHAVIORAL DISTURBANCE (6) S/P CABG (coronary artery bypass graft) Assessment/Plan: see under "coronary artery disease" Code(s): Z95.1 - PRESENCE OF AORTOCORONARY BYPASS GRAFT (7) Vision loss of right eye Code(s): H54.61 - UNQUALIFIED VISUAL LOSS, RIGHT EYE, NORMAL VISION LEFT EYE (8) Hyperlipidemia Assessment/Plan: On atorvastatin 80 mg daily; LDL 76; HDL 30 mg/dL. Code(s): E78.5 - HYPERLIPIDEMIA, UNSPECIFIED (9) CVA (cerebral vascular accident) Assessment/Plan: Family states pt has had five CVAs over the past several years, and believes his "dementia" is due to these ([address] noted multiple cortical infarcts, some new since 2014). f/u with neurologist. Code(s): I63.9 - CEREBRAL INFARCTION, UNSPECIFIED
[2018-02-24 19:18] LABS: CHOLESTEROL 111 mg/dL (50-200); HDL CHOLESTEROL 30 mg/dL (40-60); TRIGLYCERIDES 98 mg/dL (35-160)
[2018-02-24] MEDS: ASPIRIN 81 MG CHEWABLE TABLETS PO SCH (22:20)
[2018-02-24] MEDS: ATORVASTATIN CA 80 MG TABLET (FP) PO SCH (22:20)
[2018-02-25] MEDS ORDERED: PIPERACILLIN/TAZOBACTAM 3.375 GM VIAL IVPB ONE ×2 (00:19→09:57)
[2018-02-25] MEDS ORDERED: DEXTROSE 5%-WATER - 50 ML IVPB ONE ×2 (00:19→09:57)
[2018-02-25] MEDS: PIPERACILLIN/TAZOB 3.375 GM 3.375 GM in DEXTROSE 5%-WATER - 50 ML IVPB SCH ×3 (01:02→19:00)
[2018-02-25] MEDS: HEPARIN NA (PORCINE) 5,000 UNITS/ML 1ML VIAL SQ SCH ×3 (05:45→21:52)
[2018-02-25] MEDS: INSULIN (NOVOLOG MIX 70/30) 100 UNITS/ML MDV SQ SCH ×2 (06:32→17:20)
[2018-02-25] MEDS: INSULIN SLIDING SCALE (NOVOLOG) 1 VIAL SQ SCH ×3 (06:32→17:20)
--- NOTE | 2018-02-25 09:47 | PN ---
Progress Note (short form) - Note Progress Note: Vascular Surgery Pt seen and examined. Right great toe gangrene for some time. Cardiology note reviewed. Seems like pt needs more intervention for his heart. -- as he did not come back in 2012 for his staged procedures for further stent placements in his heart. CTA reviewed and pt has 70-90% stenosis in right SFA and popliteal artery. Pt has collateral circulation going to foot. No inline flow. The toe is dry and not wet. Will hold off angiogram/angioplasty right now. Please address his cardiac issues first. The foot is stable and does not need emergency intervention. Mulugeta Lomeli DO
[2018-02-25] MEDS ORDERED: RANOLAZINE E.R. 500 MG TABLET (FP) ONE ×2 (09:56→21:47)
[2018-02-25] MEDS: CLOPIDOGREL BISULFATE 75 MG TABLET (FP) PO SCH (10:28)
[2018-02-25] MEDS: SPIRONOLACTONE 25 MG TABLET (FP) PO SCH (10:28)
[2018-02-25] MEDS: VANCOMYCIN 1,250 MG in DEXTROSE 5%-WATER - 250 ML IVPB SCH (10:28)
[2018-02-25] MEDS: CARVEDILOL 25 MG TABLET (FP) PO SCH ×2 (10:28→21:52)
[2018-02-25] MEDS: THIAMINE HCL 100 MG TABLET (FP) PO SCH (10:28)
[2018-02-25] MEDS: VALSARTAN 160 MG TABLET (UD) PO SCH (10:28)
[2018-02-25] MEDS: RANOLAZINE E.R. 1,000 MG TABLET (FP) PO SCH ×2 (10:29→21:52)
--- NOTE | 2018-02-25 11:52 | PN ---
Progress Note, Physician History of Present Illness: Patient is a 72-year-old male ([facility]) with past medical history of IDDM, systolic CHF, HTN, CABG ?2008 after [place], stents ?3, HLD, CVA x 5, PAD , dementia, who presents to the emergency department today with a right toe infection. Patient has dementia and is unable to communicate at baseline. He presents with his family who provides in history of present illness. Family states that they returned from the [facility] today. He was treated at a local hospital in the for a toe infection to the right first toe. States that he received ampicillin and the wound was debrided in the hospital. They state that now they believe the toe was worse. Denies fevers, cough, nausea and vomiting. - Current Medication List Current Medications: Active Medications Aspirin (Asa -) 81 mg PO HS [facility] Last Admin: 02/24/18 22:20 Dose: 81 mg Atorvastatin Calcium (Lipitor -) 80 mg PO HS [facility] Last Admin: 02/24/18 22:20 Dose: 80 mg Carvedilol (Coreg -) 25 mg PO BID [facility] Last Admin: 02/25/18 10:28 Dose: 25 mg Clopidogrel Bisulfate (Plavix -) 75 mg PO DAILY [facility] Last Admin: 02/25/18 10:28 Dose: 75 mg Docusate Sodium (Colace -) 100 mg PO Q8H PRN PRN Reason: CONSTIPATION Last Admin: 02/24/18 18:29 Dose: 100 mg Heparin Sodium (Porcine) (Heparin -) 5,000 unit SQ TID [facility] Last Admin: 02/25/18 05:45 Dose: Not Given Vancomycin HCl 1,250 mg/ (Dextrose) 250 mls @ 250 mls/2 hr IVPB DAILY [facility]; Protocol Last Admin: 02/25/18 10:28 Dose: 250 mls/2 hr Piperacillin Sod/Tazobactam (Sod 3.375 gm/ Dextrose) 50 mls @ 100 mls/hr IVPB Q8H-IV [facility]; Protocol Last Admin: 02/25/18 10:29 Dose: 100 mls/hr Insulin Aspart (Novolog Mix 70/30 Vial) 10 units SQ BIDAC [facility] Last Admin: 02/25/18 06:32 Dose: Not Given Insulin Aspart (Novolog Vial Sliding Scale -) 1 vial SQ TIDAC [facility]; Protocol Last Admin: 02/25/18 06:32 Dose: Not Given Ranolazine (Ranexa -) 1,000 mg PO BID [facility] Last Admin: 02/25/18 10:29 Dose: 1,000 mg Spironolactone (Aldactone -) 25 mg PO DAILY [facility] Last Admin: 02/25/18 10:28 Dose: 25 mg Thiamine HCl (Vitamin B1 -) 100 mg PO DAILY [facility] Last Admin: 02/25/18 10:28 Dose: 100 mg Valsartan (Diovan -) 160 mg PO DAILY [facility] Last Admin: 02/25/18 10:28 Dose: 160 mg - Objective Vital Signs: Vital Signs Temperature 99.0 F 02/25/18 06:03 Pulse Rate 99 H 02/25/18 06:03 Respiratory Rate 21 02/25/18 06:03 Blood Pressure 135/72 02/25/18 06:03 O2 Sat by Pulse Oximetry (%) 96 02/24/18 21:00 Labs: CBC, BMP 02/23/18 07:01 02/23/18 07:01 INR, PTT INR 1.19 (0.82-1.09) H 02/22/18 11:08 Assessment/Plan Problems (1) IDDM (insulin dependent diabetes mellitus) Code(s): E11.9 - TYPE 2 DIABETES MELLITUS WITHOUT COMPLICATIONS; 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 See "Coronary artery disease" regarding prior coronary angiogram. Code(s): I96 - GANGRENE, NOT ELSEWHERE CLASSIFIED (3) Chronic systolic (congestive) heart failure Assessment/Plan: Moderately reduced LVEF noted on 2015 ECHO; f/u study in am. Presently on valsartan, carvedilol, Ranexa, and spironolactone. F/u BUN/Cr, Is and Os, daily weight, electrolytes. Code(s): I50.22 - CHRONIC SYSTOLIC (CONGESTIVE) HEART FAILURE (4) Coronary artery disease Assessment/Plan: Pt had CABG in ?2007 after [place], per family. Discussed case with Dr. Stef Mackey who, in 2012, performed coronary angiogram. Triple-vessel disease was noted; an LAD stent was placed, and plans were made for staged PCI of RCA and JOE; pt, however, did not return for f/u. Will obtain records of coronary angiogram. These findings should be taken into consideration prior to decision on LE procedure. Code(s): I25.10 - ATHSCL HEART DISEASE OF [place] CORONARY ARTERY W/O ANG PCTRS Qualifiers: Coronary Disease-Associated Artery/Lesion type: [place] artery [place] vs. transplanted heart: [place] heart Associated angina: without angina Qualified Code(s): I25.10 - Atherosclerotic heart disease of [place] coronary artery without angina pectoris (5) Dementia Assessment/Plan: see under "CVA" Code(s): F03.90 - UNSPECIFIED DEMENTIA WITHOUT BEHAVIORAL DISTURBANCE (6) S/P CABG (coronary artery bypass graft) Assessment/Plan: see under "coronary artery disease" Code(s): Z95.1 - PRESENCE OF AORTOCORONARY BYPASS GRAFT (7) Vision loss of right eye Code(s): H54.61 - UNQUALIFIED VISUAL LOSS, RIGHT EYE, NORMAL VISION LEFT EYE (8) Hyperlipidemia Assessment/Plan: On atorvastatin 80 mg daily; LDL 76; HDL 30 mg/dL. Code(s): E78.5 - HYPERLIPIDEMIA, UNSPECIFIED (9) CVA (cerebral vascular accident) Assessment/Plan: Family states pt has had five CVAs over the past several years, and believes his "dementia" is due to these ([address] noted multiple cortical infarcts, some new since 2013). f/u with neurologist. Code(s): I63.9 - CEREBRAL INFARCTION, UNSPECIFIED
--- NOTE | 2018-02-25 12:59 | EKG ---
Test Reason : Blood Pressure : / mmHG Vent. Rate : 086 BPM Atrial Rate : 086 BPM P-R Int : 162 ms QRS Dur : 118 ms QT Int : 412 ms P-R-T Axes : 063 -29 170 degrees QTc Int : 493 ms NORMAL SINUS RHYTHM POSSIBLE LEFT ATRIAL ENLARGEMENT LEFT VENTRICULAR HYPERTROPHY WITH QRS WIDENING AND REPOLARIZATION ABNORMALITY PROLONGED QT ABNORMAL ECG WHEN COMPARED WITH ECG OF 22-FEB-2018 11:12, NON-SPECIFIC CHANGE IN ST SEGMENT IN ANTERIOR LEADS Confirmed by MONICO FAUSTIN MD ([id number]) on 02/25/2018 12:58:51 PM Referred By: MIKHAIL WINKLER DR Confirmed By:MONICO FAUSTIN MD
--- NOTE | 2018-02-25 14:03 | PN ---
Progress Note, Physician History of Present Illness: no new issues awaiting final plan on the patient all cx reports noted still organism to be identified - Current Medication List Current Medications: Active Medications Aspirin (Asa -) 81 mg PO HS [facility] Last Admin: 02/24/18 22:20 Dose: 81 mg Atorvastatin Calcium (Lipitor -) 80 mg PO HS [facility] Last Admin: 02/24/18 22:20 Dose: 80 mg Carvedilol (Coreg -) 25 mg PO BID [facility] Last Admin: 02/25/18 10:28 Dose: 25 mg Clopidogrel Bisulfate (Plavix -) 75 mg PO DAILY [facility] Last Admin: 02/25/18 10:28 Dose: 75 mg Docusate Sodium (Colace -) 100 mg PO Q8H PRN PRN Reason: CONSTIPATION Last Admin: 02/24/18 18:29 Dose: 100 mg Heparin Sodium (Porcine) (Heparin -) 5,000 unit SQ TID [facility] Last Admin: 02/25/18 05:45 Dose: Not Given Vancomycin HCl 1,250 mg/ (Dextrose) 250 mls @ 250 mls/2 hr IVPB DAILY [facility]; Protocol Last Admin: 02/25/18 10:28 Dose: 250 mls/2 hr Piperacillin Sod/Tazobactam (Sod 3.375 gm/ Dextrose) 50 mls @ 100 mls/hr IVPB Q8H-IV [facility]; Protocol Last Admin: 02/25/18 10:29 Dose: 100 mls/hr Insulin Aspart (Novolog Mix 70/30 Vial) 10 units SQ BIDAC [facility] Last Admin: 02/25/18 06:32 Dose: Not Given Insulin Aspart (Novolog Vial Sliding Scale -) 1 vial SQ TIDAC [facility]; Protocol Last Admin: 02/25/18 12:16 Dose: 4 units Ranolazine (Ranexa -) 1,000 mg PO BID [facility] Last Admin: 02/25/18 10:29 Dose: 1,000 mg Spironolactone (Aldactone -) 25 mg PO DAILY [facility] Last Admin: 02/25/18 10:28 Dose: 25 mg Thiamine HCl (Vitamin B1 -) 100 mg PO DAILY [facility] Last Admin: 02/25/18 10:28 Dose: 100 mg Valsartan (Diovan -) 160 mg PO DAILY [facility] Last Admin: 02/25/18 10:28 Dose: 160 mg - Objective Vital Signs: Vital Signs Temperature 99.0 F 02/25/18 06:03 Pulse Rate 99 H 02/25/18 06:03 Respiratory Rate 21 02/25/18 06:03 Blood Pressure 135/72 02/25/18 06:03 O2 Sat by Pulse Oximetry (%) 96 02/24/18 21:00 Constitutional: Yes: No Distress, Calm Cardiovascular: Yes: Regular Rate and Rhythm Respiratory: Yes: Regular, CTA Bilaterally Gastrointestinal: Yes: Normal Bowel Sounds, Soft Musculoskeletal: Yes: Other Extremities: Yes: Other Neurological: Yes: Alert, Other Psychiatric: Yes: Alert Labs: CBC, BMP 02/23/18 07:01 02/23/18 07:01 INR, PTT INR 1.19 (0.82-1.09) H 02/22/18 11:08 Assessment/Plan his is a 72 year old male with PMHx of IDDM, HTN, CABG, CVA, hyperlipidemia, dementia, who presented to the ED with right foot first digit gangrene. 1) Right foot first digit wet gangrene 2) Non-palpable right foot pulses 3) IDDM 4) CAD s/p CABG and stenting 5) HTN 6) Hyperlipidemia plan continue abx await for identification of the bacteria will stop vanco await for surgical plan rest as per the team
[2018-02-25] MEDS ORDERED: LORazepam 1 MG TABLET PO ONE (16:00)
--- NOTE | 2018-02-25 18:30 | PN ---
Progress Note (short form) - Note Progress Note: Subjective: The patient was seen at the bedside, he has no complaints at this time Current Medications Generic Name Dose Route Start Last Admin Trade Name Freq PRN Reason Stop Dose Admin Aspirin 81 mg 02/22/18 22:00 02/24/18 22:20 Asa - PO 81 mg HS [facility] Administration Atorvastatin Calcium 80 mg 02/22/18 22:00 02/24/18 22:20 Lipitor - PO 80 mg HS [facility] Administration Carvedilol 25 mg 02/22/18 22:00 02/25/18 10:28 Coreg - PO 25 mg BID [facility] Administration Clopidogrel Bisulfate 75 mg 02/23/18 10:00 02/25/18 10:28 Plavix - PO 75 mg DAILY [facility] Administration Docusate Sodium 100 mg 02/24/18 16:54 02/24/18 18:29 Colace - PO 100 mg Q8H PRN Administration CONSTIPATION Heparin Sodium (Porcine) 5,000 unit 02/22/18 22:00 02/25/18 14:15 Heparin - SQ Not Given TID [facility] Vancomycin HCl 1,250 mg/ 250 mls @ 250 mls/2 hr 02/24/18 10:00 02/25/18 10:28 Dextrose IVPB 250 mls/2 hr DAILY [facility] Administration Protocol Piperacillin Sod/Tazobactam 50 mls @ 100 mls/hr 02/23/18 18:00 02/25/18 10:29 Sod 3.375 gm/ Dextrose IVPB 100 mls/hr Q8H-IV [facility] Administration Protocol Insulin Aspart 10 units 02/23/18 07:00 02/25/18 06:32 Novolog Mix 70/30 Vial SQ Not Given [facility] Insulin Aspart 1 vial 02/23/18 07:00 02/25/18 12:16 Novolog Vial Sliding Scale - SQ 4 units TIDAC [facility] Administration Protocol Ranolazine 1,000 mg 02/22/18 22:00 02/25/18 10:29 Ranexa - PO 1,000 mg BID [facility] Administration Spironolactone 25 mg 02/23/18 10:00 02/25/18 10:28 Aldactone - PO 25 mg DAILY [facility] Administration Thiamine HCl 100 mg 02/23/18 10:00 02/25/18 10:28 Vitamin B1 - PO 100 mg DAILY [facility] Administration Valsartan 160 mg 02/23/18 10:00 02/25/18 10:28 Diovan - PO 160 mg DAILY [facility] Administration Objective: Vital Signs Period Temp Pulse Resp BP Sys/[place]field Pulse Ox Last 24 Hr 97.5 F-99.0 F 80-99 18-21 130-158/70-87 96 Physical Exam: Patient refused again Right big toe visualized. Malodorous CBCD WBC 10.1 K/mm3 (4.0-10.0) H 02/23/18 07:01 RBC 3.67 M/mm3 (4.00-5.60) L 02/23/18 07:01 Hgb 11.0 GM/dL (11.7-16.9) L 02/23/18 07:01 Hct 32.8 % (35.4-49) L 02/23/18 07:01 MCV 89.3 fl (80-96) 02/23/18 07:01 MCHC 33.4 g/dl (32.0-35.9) 02/23/18 07:01 RDW 14.0 % (11.9-15.9) 02/23/18 07:01 Plt Count 210 K/MM3 (134-434) 02/23/18 07:01 MPV 11.2 fl (7.5-11.1) H 02/23/18 07:01 CMP Sodium 135 mmol/L (136-145) L 02/23/18 07:01 Potassium 5.1 mmol/L (3.5-5.1) 02/23/18 07:01 Chloride 102 mmol/L (98-107) 02/23/18 07:01 Carbon Dioxide 25 mmol/L (21-32) 02/23/18 07:01 Anion Gap 8 (8-16) 02/23/18 07:01 BUN 15 mg/dL (7-18) 02/23/18 07:01 Creatinine 1.1 mg/dL (0.7-1.3) 02/23/18 07:01 Creat Clearance w eGFR > 60 (>60) 02/23/18 07:01 Random Glucose 237 mg/dL (74-106) H 02/23/18 07:01 Calcium 8.7 mg/dL (8.5-10.1) 02/23/18 07:01 Total Bilirubin 0.7 mg/dL (0.2-1.0) 02/23/18 07:01 AST 25 U/L (15-37) D 02/23/18 07:01 ALT 45 U/L (12-78) D 02/23/18 07:01 Alkaline Phosphatase 139 U/L (45-117) H D 02/23/18 07:01 Total Protein 6.7 g/dl (6.4-8.2) 02/23/18 07:01 Albumin 2.5 g/dl (3.4-5.0) L 02/23/18 07:01 CARDIAC ENZYMES Creatine Kinase 82 IU/L (39-308) 02/22/18 13:13 Troponin I 0.04 ng/ml (0.00-0.05) D 02/22/18 13:13 Microbiology 02/22/18 11:00 Toe - Right Hallux Gram Stain - Final 02/22/18 11:00 Toe - Right Hallux Wound Culture - Preliminary Non Lactose Fermenting Gnb Klebsiella Pneumoniae Non Lactose Fermenting Gnb#2 Staphylococcus Aureus Enterococcus Faecalis 02/22/18 11:00 Blood - Peripheral Venous Blood Culture - Preliminary NO GROWTH OBTAINED AFTER 72 HOURS, INCUBATION TO CONTINUE FOR 2 DAYS. 02/22/18 11:00 Blood - Peripheral Venous Blood Culture - Preliminary NO GROWTH OBTAINED AFTER 72 HOURS, INCUBATION TO CONTINUE FOR 2 DAYS. 02/22/18 12:15 Urine - Urine Clean Catch Urine Culture - Final NO GROWTH OBTAINED Assessment: This is a 72 year old male with PMHx of IDDM, HTN, CABG, CVA, hyperlipidemia, dementia, who presented to the ED with right foot first digit gangrene. Plan: 1) Right foot first digit dry gangrene - F/u final wound culture - Continue Zosyn and Vancomycin - Foot x-ray with no evidence of osteo - Patient has stents but it is unclear if MRI compatible. Will not be able to perform MRI at this time - ESR/CRP elevated - Appreciate ID consult for further recommendations - Appreciate surgery consult 2) Non-palpable right foot pulses - Right leg/foot warm - CTA with runoff: diffuse aortoiliac and bilateral lower extremity atherosclerotic disease most severe and extensive in the femoropopliteal and infrapopliteal arteries with essentially no vessel runoff in the right lower extremity and one vessel runoff in the left lower extremity - Appreciate cards consult 3) IDDM - BGM ACHS - Novolog 70/30 10u sq bid - Novolog sliding scale TIDAC 4) CAD s/p CABG and stenting - Continue ASA - Continue Plavix - Continue Ranexa 5) HTN - Continue Diovan - Continue Aldactone - Continue Coreg 6) Hyperlipidemia - Continue Lipitor 7) Prolonged Qtc 8) F/E/N: - Diabetic/sodium controlled diet - Monitor electrolytes 9) Prophylaxis: - Heparin 5,000u sq tid 10) Dispo: - Requires continued inpatient care CODE STATUS: FULL CODE Visit type - Emergency Visit Emergency Visit: Yes ED Registration Date: 02/22/18 Care time: The patient presented to the Emergency Department on the above date and was hospitalized for further evaluation of their emergent condition. - New Patient This patient is new to me today: No - Critical Care Critical Care patient: No
[2018-02-25] MEDS ORDERED: traMADol HCL 50 MG TABLET PO ONE (18:50)
[2018-02-25] MEDS: ASPIRIN 81 MG CHEWABLE TABLETS PO SCH (21:51)
[2018-02-25] MEDS: ATORVASTATIN CA 80 MG TABLET (FP) PO SCH (21:52)
[2018-02-26] MEDS ORDERED: PIPERACILLIN/TAZOBACTAM 3.375 GM VIAL IVPB ONE ×3 (00:29→17:11)
[2018-02-26] MEDS ORDERED: DEXTROSE 5%-WATER - 50 ML IVPB ONE ×3 (00:30→17:11)
[2018-02-26] MEDS: PIPERACILLIN/TAZOB 3.375 GM 3.375 GM in DEXTROSE 5%-WATER - 50 ML IVPB SCH ×3 (01:28→17:15)
[2018-02-26] MEDS: HEPARIN NA (PORCINE) 5,000 UNITS/ML 1ML VIAL SQ SCH ×3 (05:55→22:12)
[2018-02-26] MEDS: INSULIN (NOVOLOG MIX 70/30) 100 UNITS/ML MDV SQ SCH ×2 (06:23→17:25)
[2018-02-26] MEDS: INSULIN SLIDING SCALE (NOVOLOG) 1 VIAL SQ SCH ×3 (06:23→17:22)
[2018-02-26] MEDS ORDERED: INSULIN (NOVOLOG) ASPART 100 UNITS/ML 10ML VIAL ONE (06:25)
[2018-02-26 07:25] LABS: BASO % 0.4 % (0-2.0); EOS % 6.2 % (0-4.5); HEMATOCRIT 26.4 % (35.4-49); HEMOGLOBIN 8.9 GM/dL (11.7-16.9); LYMPH % 8.6 % (8-40); MCH 29.8 pg (25.7-33.7); MCHC 33.8 g/dl (32.0-35.9); MEAN CELL VOLUME 88.3 fl (80-96); MEAN PLT VOLUME 10.8 fl (7.5-11.1); MONO % 9.8 % (3.8-10.2); PLATELET COUNT 213 K/MM3 (134-434); RBC 2.99 M/mm3 (4.00-5.60); RDW 14.3 % (11.9-15.9); WHITE BLOOD COUNT 8.3 K/mm3 (4.0-10.0)
[2018-02-26 07:42] LABS: ALBUMIN 2.2 g/dl (3.4-5.0); ANION GAP 10 (8-16); BLOOD UREA NITROGEN 34 mg/dL (7-18); CALCIUM 8.1 mg/dL (8.5-10.1); CHLORIDE 102 mmol/L (98-107); CO2 24 mmol/L (21-32); GLUCOSE,RANDOM 174 mg/dL (74-106); POTASSIUM 3.9 mmol/L (3.5-5.1); SODIUM 136 mmol/L (136-145)
[2018-02-26 07:49] LABS: ALK PHOS 115 U/L (45-117); BILIRUBIN,TOTAL 0.5 mg/dL (0.2-1.0); CREATININE 2.5 mg/dL (0.7-1.3); N-TERMINAL BNP 15999.04 pg/ml (5-125); SGOT/AST 19 U/L (15-37); SGPT/ALT 28 U/L (12-78); TOT PROT 6.2 g/dl (6.4-8.2)
[2018-02-26] MEDS: VANCOMYCIN 1,250 MG in DEXTROSE 5%-WATER - 250 ML IVPB SCH (10:26)
[2018-02-26] MEDS ORDERED: RANOLAZINE E.R. 500 MG TABLET (FP) ONE (11:04)
[2018-02-26] MEDS: THIAMINE HCL 100 MG TABLET (FP) PO SCH (11:15)
[2018-02-26] MEDS: VALSARTAN 160 MG TABLET (UD) PO SCH (11:15)
[2018-02-26] MEDS: SPIRONOLACTONE 25 MG TABLET (FP) PO SCH (11:15)
[2018-02-26] MEDS: CARVEDILOL 25 MG TABLET (FP) PO SCH ×2 (11:15→22:13)
[2018-02-26] MEDS: CLOPIDOGREL BISULFATE 75 MG TABLET (FP) PO SCH (11:15)
[2018-02-26] MEDS: RANOLAZINE E.R. 1,000 MG TABLET (FP) PO SCH ×2 (11:16→22:13)
--- NOTE | 2018-02-26 11:56 | PN ---
Progress Note, Physician Chief Complaint: Pt is more talkative, though still falls asleep easily. Several family members are at bedside. History of Present Illness: Patient is a 72-year-old male (. [facility]) with past medical history of IDDM, systolic CHF, HTN, CABG ?2008 after [place], stents ?3, HLD, CVA x 5, PAD , dementia, who presents to the emergency department today with a right toe infection. Patient has dementia and is unable to communicate at baseline. He presents with his family who provides in history of present illness. Family states that they returned from the [facility] today. He was treated at a local hospital in the for a toe infection to the right first toe. States that he received ampicillin and the wound was debrided in the hospital. They state that now they believe the toe was worse. Denies fevers, cough, nausea and vomiting. - Current Medication List Current Medications: Active Medications Aspirin (Asa -) 81 mg PO HS [facility] Last Admin: 02/25/18 21:51 Dose: 81 mg Atorvastatin Calcium (Lipitor -) 80 mg PO HS [facility] Last Admin: 02/25/18 21:52 Dose: 80 mg Carvedilol (Coreg -) 25 mg PO BID [facility] Last Admin: 02/26/18 11:15 Dose: 25 mg Clopidogrel Bisulfate (Plavix -) 75 mg PO DAILY [facility] Last Admin: 02/26/18 11:15 Dose: 75 mg Docusate Sodium (Colace -) 100 mg PO Q8H PRN PRN Reason: CONSTIPATION Last Admin: 02/24/18 18:29 Dose: 100 mg Heparin Sodium (Porcine) (Heparin -) 5,000 unit SQ TID [facility] Last Admin: 02/26/18 05:55 Dose: 5,000 unit Vancomycin HCl 1,250 mg/ (Dextrose) 250 mls @ 250 mls/2 hr IVPB DAILY [facility]; Protocol Last Admin: 02/25/18 10:28 Dose: 250 mls/2 hr Piperacillin Sod/Tazobactam (Sod 3.375 gm/ Dextrose) 50 mls @ 100 mls/hr IVPB Q8H-IV [facility]; Protocol Last Admin: 02/26/18 11:16 Dose: 100 mls/hr Insulin Aspart (Novolog Mix 70/30 Vial) 10 units SQ [facility]IDAC [facility] Last Admin: 02/26/18 06:23 Dose: 10 units Insulin Aspart (Novolog Vial Sliding Scale -) 1 vial SQ TIDAC [facility]; Protocol Last Admin: 02/26/18 06:23 Dose: 4 units Ranolazine (Ranexa -) 1,000 mg PO BID [facility] Last Admin: 02/26/18 11:16 Dose: 1,000 mg Spironolactone (Aldactone -) 25 mg PO DAILY [facility] Last Admin: 02/26/18 11:15 Dose: 25 mg Thiamine HCl (Vitamin B1 -) 100 mg PO DAILY [facility] Last Admin: 02/26/18 11:15 Dose: 100 mg Valsartan (Diovan -) 160 mg PO DAILY [facility] Last Admin: 02/26/18 11:15 Dose: 160 mg - Objective Vital Signs: Vital Signs Temperature 97.3 F L 02/25/18 20:31 Pulse Rate 89 02/26/18 06:15 Respiratory Rate 20 02/26/18 06:15 Blood Pressure 150/69 02/26/18 06:15 O2 Sat by Pulse Oximetry (%) 96 02/24/18 21:00 Labs: CBC, BMP 02/26/18 06:20 02/26/18 06:20 INR, PTT INR 1.19 (0.82-1.09) H 02/22/18 11:08 Problem List - Problems (1) IDDM (insulin dependent diabetes mellitus) Code(s): E11.9 - TYPE 2 DIABETES MELLITUS WITHOUT COMPLICATIONS; Z79.4 - CUSTODIAL (CURRENT) USE OF INSULIN (2) Necrosis of toe Assessment/Plan: CTA results noted: extensive bilateral arterial disease. See "Coronary artery disease" regarding prior coronary angiogram. Code(s): I96 - GANGRENE, NOT ELSEWHERE CLASSIFIED (3) Chronic systolic (congestive) heart failure Assessment/Plan: Moderately reduced LVEF noted on 2015 ECHO; study 02/25/2018 now shows moderate- severely reduced LVEF, with severe TX and TR, severe pulmonary HTN. Presently on valsartan, carvedilol, Ranexa, and spironolactone. F/u BUN/Cr, Is and Os, daily weight, electrolytes. Code(s): I50.22 - CHRONIC SYSTOLIC (CONGESTIVE) HEART FAILURE (4) Coronary artery disease Assessment/Plan: Pt had CABG in ?2007 after [place], per family. Discussed case again with Dr. Stef Mackey who, in 2012, performed coronary angiogram. Triple-vessel disease was noted; a vein graft to diagonal graft was stented, and pt returned 07/2013 for RCA stent. He was to return for stent of vein graft to diagonal. Moderately severe LV systolic dysfunction on ECHO this admission (in 2012, was mildly reduced LVEF). Will order stress Lexiscan MIBI when pt is stable (presently with acute ARF, which needs to be corrected before pt would be eligible for coronary angiogram, should it be considered necessary). Code(s): I25.10 - ATHSCL HEART DISEASE OF [place] CORONARY ARTERY W/O ANG PCTRS Qualifiers: Coronary Disease-Associated Artery/Lesion type: [place] artery [place] vs. transplanted heart: [place] heart Associated angina: without angina Qualified Code(s): I25.10 - Atherosclerotic heart disease of [place] coronary artery without angina pectoris (5) Dementia Assessment/Plan: see under "CVA" Code(s): F03.90 - UNSPECIFIED DEMENTIA WITHOUT BEHAVIORAL DISTURBANCE (6) S/P CABG (coronary artery bypass graft) Assessment/Plan: see under "coronary artery disease" Code(s): Z95.1 - PRESENCE OF AORTOCORONARY BYPASS GRAFT (7) Vision loss of right eye Code(s): H54.61 - UNQUALIFIED VISUAL LOSS, RIGHT EYE, NORMAL VISION LEFT EYE (8) Hyperlipidemia Assessment/Plan: On atorvastatin 80 mg daily; LDL 76; HDL 30 mg/dL. Code(s): E78.5 - HYPERLIPIDEMIA, UNSPECIFIED (9) CVA (cerebral vascular accident) Assessment/Plan: Family states pt has had five CVAs over the past several years, and believes his "dementia" is due to these ([address] noted multiple cortical infarcts, some new since 2014). f/u with neurologist. Code(s): I63.9 - CEREBRAL INFARCTION, UNSPECIFIED (10) Renal dysfunction Assessment/Plan: f/u with engineering group manager. Code(s): N28.9 - DISORDER OF KIDNEY AND URETER, UNSPECIFIED
[2018-02-26] MEDS ORDERED: SODIUM CHLORIDE 1,000 ML IV SCH (12:00)
--- NOTE | 2018-02-26 12:00 | PN ---
Physical Exam: SUBJECTIVE: Patient seen and examined at the bedside. In no acute distress. Denies pain OBJECTIVE: Right great toe dry gangrene, foot warm to touch BNP elevated, chest xray ordered Noted to have TREVOR on today's labs. gently hydrate (has elevated bnp and left lung mild congestion), Bladder scan now, renal consulted. hmg/hct, down trending, stool for occult blood ordered Vital Signs Period Temp Pulse Resp BP Sys/[place] Pulse Ox Last 24 Hr 97.3 F-97.5 F 80-91 18-20 148-158/69-87 GENERAL: The patient is awake, in no acute distress. HEAD: Normal with no signs of trauma. EYES: PERRL, extraocular movements intact, sclera anicteric, conjunctiva clear. No ptosis. ENT: Ears normal, nares patent, oropharynx clear without exudates, moist mucous membranes. NECK: Trachea midline, full range of motion, supple. LUNGS: left lung diminshed with evidence of congestion HEART: Regular rate and rhythm, ABDOMEN: Soft, nontender, nondistended, normoactive bowel sounds, no guarding, no rebound, no hepatosplenomegaly, no masses. EXTREMITIES: 2+ pulses, warm, well-perfused, no edema. NEUROLOGICAL: Cranial nerves II through XII grossly intact. Normal speech, gait not observed. PSYCH: Normal mood, normal affect. SKIN: Warm, dry, normal turgor, no rashes or lesions noted Laboratory Results - last 24 hr 02/25/18 02/25/18 02/26/18 12:09 16:37 05:23 WBC RBC Hgb Hct MCV MCH MCHC RDW Plt Count MPV Absolute Neuts (auto) Neutrophils % Lymphocytes % Monocytes % Eosinophils % Basophils % Nucleated RBC % Sodium Potassium Chloride Carbon Dioxide Anion Gap BUN Creatinine Creat Clearance w eGFR POC Glucometer 246 225 206 Random Glucose Calcium Total Bilirubin AST ALT Alkaline Phosphatase B-Natriuretic Peptide Total Protein Albumin 02/26/18 02/26/18 06:20 06:20 WBC 8.3 RBC 2.99 L Hgb 8.9 L Hct 26.4 L D MCV 88.3 MCH 29.8 MCHC 33.8 RDW 14.3 Plt Count 213 MPV 10.8 Absolute Neuts (auto) 6.2 Neutrophils % 75.0 Lymphocytes % 8.6 Monocytes % 9.8 Eosinophils % 6.2 H Basophils % 0.4 Nucleated RBC % 0 Sodium 136 Potassium 3.9 D Chloride 102 Carbon Dioxide 24 Anion Gap 10 BUN 34 H Creatinine 2.5 H Creat Clearance w eGFR 25.66 POC Glucometer Random Glucose 174 H D Calcium 8.1 L Total Bilirubin 0.5 AST 19 D ALT 28 D Alkaline Phosphatase 115 D B-Natriuretic Peptide 88059.04 H Total Protein 6.2 L Albumin 2.2 L Active Medications Generic Name Dose Route Start Last Admin Trade Name Blancoq PRN Reason Stop Dose Admin Aspirin 81 mg 02/22/18 22:00 02/25/18 21:51 Asa - PO 81 mg HS [facility] Administration Atorvastatin Calcium 80 mg 02/22/18 22:00 02/25/18 21:52 Lipitor - PO 80 mg HS [facility] Administration Carvedilol 25 mg 02/22/18 22:00 02/26/18 11:15 Coreg - PO 25 mg BID [facility] Administration Clopidogrel Bisulfate 75 mg 02/23/18 10:00 02/26/18 11:15 Plavix - PO 75 mg DAILY [facility] Administration Docusate Sodium 100 mg 02/24/18 16:54 02/24/18 18:29 Colace - PO 100 mg Q8H PRN Administration CONSTIPATION Heparin Sodium (Porcine) 5,000 unit 02/22/18 22:00 02/26/18 05:55 Heparin - SQ 5,000 unit TID [facility] Administration Vancomycin HCl 1,250 mg/ 250 mls @ 250 mls/2 hr 02/24/18 10:00 02/25/18 10:28 Dextrose IVPB 250 mls/2 hr DAILY [facility] Administration Protocol Piperacillin Sod/Tazobactam 50 mls @ 100 mls/hr 02/23/18 18:00 02/26/18 11:16 Sod 3.375 gm/ Dextrose IVPB 100 mls/hr Q8H-IV [facility] Administration Protocol Sodium Chloride 1,000 mls @ 50 mls/hr 02/26/18 12:00 Normal Saline - IV 02/27/18 11:59 ASDIR [facility] Insulin Aspart 10 units 02/23/18 07:00 02/26/18 06:23 Novolog Mix 70/30 Vial SQ 10 units BIDAC [facility] Administration Insulin Aspart 1 vial 02/23/18 07:00 02/26/18 06:23 Novolog Vial Sliding Scale - SQ 4 units TIDAC [facility] Administration Protocol Ranolazine 1,000 mg 02/22/18 22:00 02/26/18 11:16 Ranexa - PO 1,000 mg BID [facility] Administration Spironolactone 25 mg 02/23/18 10:00 02/26/18 11:15 Aldactone - PO 25 mg DAILY [facility] Administration Thiamine HCl 100 mg 02/23/18 10:00 02/26/18 11:15 Vitamin B1 - PO 100 mg DAILY [facility] Administration Valsartan 160 mg 02/23/18 10:00 02/26/18 11:15 Diovan - PO 160 mg DAILY [facility] Administration ASSESSMENT/PLAN: Patient is a 72 year old male with a significant past medical history of diabetes, hypertension, CABG, CVAs, hyperlipidemia and dementia. He presents to the ED on 02/22/2018 for right great toe necross/gangrene. Patient reportedly was treated with debridement in the [place] and reports worsening of the toe wound prompting an ED visit. Imaging: CTA with runoff shows diffuse aortoiliac and bilateral lower extremity atherosclerotic disease most severe and extensive in the femoro-popliteal and infra-popliteal Vascular Right great toe dry gangrene Seen by vascular, notes reviewed. CTA with runoff noted. Follow up wound culture. Vanco stopped by ID, on Zosyn. Foot xray with no evidence of osteo. MRI unable to be performed secondary to cardiac stents. Will need to verify stents prior. Card: Hypertension, controlled On Diovan, Coreg 25mg BID. Monitor BP CAD/CABG, history On Plavix, ASA, Ranexa, Coreq, Lipitor CABG after [place] in 2007, 2012 had coronary angiogram and noted to have triple vessel dx, stended. Had RCA stent 2012. Echo reviewed. Hyperlipidemia, chronic On Lipitor Prolonged Qt Renal TREVOR, acute Started on gentle hydration, bladder scan now. May need rodríguez. Avoid nephrotoxins. Renal consulted. Endocrine: Diabetes, chronic On SS and standing 70/30, tightened short acting for elevated BGMs. hmga1c in a.m. Neuro: CVAs, on ASA. Dementia, chronic At baseline FEN NS @ 50cc/hr Monitor electrolytes Diabetic diet Prophy Heparin Protonix disposition: full code
--- NOTE | 2018-02-26 15:37 | PN ---
Progress Note, Physician History of Present Illness: no overnight events vascular plan noted cardiac clearance before surgery patient stable - Current Medication List Current Medications: Active Medications Aspirin (Asa -) 81 mg PO HS [facility] Last Admin: 02/25/18 21:51 Dose: 81 mg Atorvastatin Calcium (Lipitor -) 80 mg PO HS [facility] Last Admin: 02/25/18 21:52 Dose: 80 mg Carvedilol (Coreg -) 25 mg PO BID [facility] Last Admin: 02/26/18 11:15 Dose: 25 mg Clopidogrel Bisulfate (Plavix -) 75 mg PO DAILY [facility] Last Admin: 02/26/18 11:15 Dose: 75 mg Docusate Sodium (Colace -) 100 mg PO Q8H PRN PRN Reason: CONSTIPATION Last Admin: 02/24/18 18:29 Dose: 100 mg Heparin Sodium (Porcine) (Heparin -) 5,000 unit SQ TID [facility] Last Admin: 02/26/18 14:43 Dose: 5,000 unit Vancomycin HCl 1,250 mg/ (Dextrose) 250 mls @ 250 mls/2 hr IVPB DAILY [facility]; Protocol Last Admin: 02/26/18 10:26 Dose: Not Given Piperacillin Sod/Tazobactam (Sod 3.375 gm/ Dextrose) 50 mls @ 100 mls/hr IVPB Q8H-IV [facility]; Protocol Last Admin: 02/26/18 11:16 Dose: 100 mls/hr Sodium Chloride (Normal Saline -) 1,000 mls @ 50 mls/hr IV ASDIR [facility] Stop: 02/27/18 11:59 Last Admin: 02/26/18 13:00 Dose: 50 mls/hr Insulin Aspart (Novolog Mix 70/30 Vial) 10 units SQ BIDAC [facility] Last Admin: 02/26/18 06:23 Dose: 10 units Insulin Aspart (Novolog Vial Sliding Scale -) 1 vial SQ TIDAC [facility]; Protocol Ranolazine (Ranexa -) 1,000 mg PO BID [facility] Last Admin: 02/26/18 11:16 Dose: 1,000 mg Spironolactone (Aldactone -) 25 mg PO DAILY [facility] Last Admin: 02/26/18 11:15 Dose: 25 mg Thiamine HCl (Vitamin B1 -) 100 mg PO DAILY [facility] Last Admin: 02/26/18 11:15 Dose: 100 mg Valsartan (Diovan -) 160 mg PO DAILY [facility] Last Admin: 02/26/18 11:15 Dose: 160 mg - Objective Vital Signs: Vital Signs Temperature 98.6 F 02/26/18 14:33 Pulse Rate 77 02/26/18 14:33 Respiratory Rate 20 02/26/18 14:33 Blood Pressure 117/67 02/26/18 14:33 O2 Sat by Pulse Oximetry (%) 96 02/24/18 21:00 Constitutional: Yes: No Distress, Calm Cardiovascular: Yes: S1, S2 Respiratory: Yes: Regular, CTA Bilaterally Gastrointestinal: Yes: Normal Bowel Sounds, Soft Musculoskeletal: Yes: Other (gangrene of the foot) Extremities: Yes: Other (gangrene f the toe) Integumentary: Yes: Other Wound/Incision: Yes: Open to air Neurological: Yes: Alert Psychiatric: Yes: Alert Labs: CBC, BMP 02/26/18 06:20 02/26/18 06:20 INR, PTT INR 1.19 (0.82-1.09) H 02/22/18 11:08 Assessment/Plan his is a 72 year old male with PMHx of IDDM, HTN, CABG, CVA, hyperlipidemia, dementia, who presented to the ED with right foot first digit gangrene. 1) Right foot first digit wet gangrene 2) Non-palpable right foot pulses 3) IDDM 4) CAD s/p CABG and stenting 5) HTN 6) Hyperlipidemia plan continue abx await for identification of the bacteria await for surgical plan rest as per the team
--- NOTE | 2018-02-26 15:47 | CONSULT ---
Consultation: REQUESTING PROVIDER: Roberto Verdugo CONSULT REQUEST: We have been asked to medically evaluate this patient for TREVOR. 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 On admission patient creatinine and GFR were WNL. He was evaluated for PVD with CTA on 02/23 and found to have diffuse bilateral arterial disease. Today creatinine is 2.5 and GFR 25. Accurate I/Os unattainable due to incontinence. REVIEW OF SYSTEMS: not attainable PHYSICAL EXAMINATION Vital Signs - 24 hr 02/25/18 02/25/18 02/26/18 20:31 21:00 06:15 Temperature 97.3 F L Pulse Rate 80 89 Respiratory 20 20 20 Rate Blood Pressure 148/80 150/69 02/26/18 14:33 Temperature 98.6 F Pulse Rate 77 Respiratory 20 Rate Blood Pressure 117/67 GENERAL:sitting up in bed; non verbal LUNGS: Breath sounds equal, clear to auscultation bilaterally. No wheezes, and no crackles. No accessory muscle use. HEART: Regular rate and rhythm, normal S1 and S2 without murmur, rub or gallop. ABDOMEN: Soft, nontender, not distended, normoactive bowel sounds, no guarding, no rebound, no masses. No hepatomegaly or splenomegaly. LOWER EXTREMITIES: 2+ pulses, warm, well-perfused. No calf tenderness. No peripheral edema. right toe; wound dressing C/D/I Laboratory Results - last 24 hr 02/25/18 02/26/18 02/26/18 16:37 05:23 06:20 WBC RBC Hgb Hct MCV MCH MCHC RDW Plt Count MPV Absolute Neuts (auto) Neutrophils % Lymphocytes % Monocytes % Eosinophils % Basophils % Nucleated RBC % Sodium 136 Potassium 3.9 D Chloride 102 Carbon Dioxide 24 Anion Gap 10 BUN 34 H Creatinine 2.5 H Creat Clearance w eGFR 25.66 POC Glucometer 225 206 Random Glucose 174 H D Calcium 8.1 L Total Bilirubin 0.5 AST 19 D ALT 28 D Alkaline Phosphatase 115 D B-Natriuretic Peptide 36996.04 H Total Protein 6.2 L Albumin 2.2 L 02/26/18 02/26/18 06:20 11:31 WBC 8.3 RBC 2.99 L Hgb 8.9 L Hct 26.4 L D MCV 88.3 MCH 29.8 MCHC 33.8 RDW 14.3 Plt Count 213 MPV 10.8 Absolute Neuts (auto) 6.2 Neutrophils % 75.0 Lymphocytes % 8.6 Monocytes % 9.8 Eosinophils % 6.2 H Basophils % 0.4 Nucleated RBC % 0 Sodium Potassium Chloride Carbon Dioxide Anion Gap BUN Creatinine Creat Clearance w eGFR POC Glucometer 81 Random Glucose Calcium Total Bilirubin AST ALT Alkaline Phosphatase B-Natriuretic Peptide Total Protein Albumin Active Medications Generic Name Dose Route Start Last Admin Trade Name Freq PRN Reason Stop Dose Admin Aspirin 81 mg 02/22/18 22:00 02/25/18 21:51 Asa - PO 81 mg HS [facility] Administration Atorvastatin Calcium 80 mg 02/22/18 22:00 02/25/18 21:52 Lipitor - PO 80 mg HS [facility] Administration Carvedilol 25 mg 02/22/18 22:00 02/26/18 11:15 Coreg - PO 25 mg BID [facility] Administration Clopidogrel Bisulfate 75 mg 02/23/18 10:00 02/26/18 11:15 Plavix - PO 75 mg DAILY [facility] Administration Docusate Sodium 100 mg 02/24/18 16:54 02/24/18 18:29 Colace - PO 100 mg Q8H PRN Administration CONSTIPATION Heparin Sodium (Porcine) 5,000 unit 02/22/18 22:00 02/26/18 14:43 Heparin - SQ 5,000 unit TID [facility] Administration Vancomycin HCl 1,250 mg/ 250 mls @ 250 mls/2 hr 02/24/18 10:00 02/26/18 10:26 Dextrose IVPB Not Given DAILY [facility] Protocol Piperacillin Sod/Tazobactam 50 mls @ 100 mls/hr 02/23/18 18:00 02/26/18 11:16 Sod 3.375 gm/ Dextrose IVPB 100 mls/hr Q8H-IV [facility] Administration Protocol Sodium Chloride 1,000 mls @ 50 mls/hr 02/26/18 12:00 02/26/18 13:00 Normal Saline - IV 02/27/18 11:59 50 mls/hr ASDIR [facility] Administration Insulin Aspart 10 units 02/23/18 07:00 02/26/18 06:23 Novolog Mix 70/30 Vial SQ 10 units BIDAC [facility] Administration Insulin Aspart 1 vial 02/26/18 15:33 Novolog Vial Sliding Scale - SQ TIDAC [facility] Protocol Ranolazine 1,000 mg 02/22/18 22:00 02/26/18 11:16 Ranexa - PO 1,000 mg BID [facility] Administration Spironolactone 25 mg 02/23/18 10:00 02/26/18 11:15 Aldactone - PO 25 mg DAILY [facility] Administration Thiamine HCl 100 mg 02/23/18 10:00 02/26/18 11:15 Vitamin B1 - PO 100 mg DAILY [facility] Administration Valsartan 160 mg 02/23/18 10:00 02/26/18 11:15 Diovan - PO 160 mg DAILY [facility] Administration ASSESSMENT/PLAN: This is a 72 year old male with history of DM, CAD, hx CVA, HTN, HLD, presented with right toe infection on IV antibiotics. Work up for PVD included CTA in 02/23 , now with creatinine of 2.5. MOst likey to contrast induced nephropathy. #TREVOR secondary to Contrast induced nephropathy #DM #PVD #foot ulcer #hx cva -can dc IVF; -monitor electrolytes and acid base status -ensure patient making urine -avoid nephrotoxin; can dc/ diovan -lasix prn for edema and volume management Dispo: We will continue to follow the patient. Thank you for this consultative opportunity. Visit type - Emergency Visit Emergency Visit: No - New Patient This patient is new to me today: Yes Date on this admission: 02/26/18 - Critical Care Critical Care patient: No
--- NOTE | 2018-02-26 17:01 | PN ---
Teaching Attending Note Name of Resident: Anika Henao (nephrology) ATTENDING PHYSICIAN STATEMENT I saw and evaluated the patient. I reviewed the resident's note and discussed the case with the resident. I agree with the resident's findings and plan as documented. SUBJECTIVE: Home Medications Medication Instructions Recorded Insulin (Novolog 70/30) [Novolog 30 units SQ BIDI #0 pen 06/30/13 Mix 70/30 Flexpen -] Aspirin [ASA -] 81 mg PO HS #30 tab.chew 06/14/16 Atorvastatin Ca [Lipitor] 80 mg PO HS #30 tablet 06/14/16 Carvedilol [Coreg -] 25 mg PO BID #60 tablet 06/14/16 Clopidogrel Bisulfate [Plavix -] 75 mg PO DAILY #30 tablet 06/14/16 Insulin Aspart Prot/Insuln Asp 10 unit SQ BIDAC #1 ml 06/14/16 [Novolog Mix 70-30 Flexpen Syrn] Ranolazine [Ranexa -] 1,000 mg PO BID #60 tab 06/14/16 Spironolactone [Aldactone -] 25 mg PO DAILY #30 tablet 06/14/16 Thiamine HCl [Vitamin B1 -] 100 mg PO DAILY #30 tablet 06/14/16 Valsartan [Diovan] 160 mg PO DAILY #60 tablet 06/14/16 OBJECTIVE: Vital Signs Temperature 98.6 F 02/26/18 14:33 Pulse Rate 77 02/26/18 14:33 Respiratory Rate 20 02/26/18 14:33 Blood Pressure 117/67 02/26/18 14:33 O2 Sat by Pulse Oximetry (%) 96 02/24/18 21:00 Intake & Output 02/23/18 02/24/18 02/25/18 02/26/18 23:59 23:59 23:59 23:59 Intake Total 650 1000 420 250 Balance 650 1000 420 250 CBC, BMP 02/26/18 06:20 02/26/18 06:20 Current Medications Aspirin (Asa -) 81 mg PO HS [facility] Last Admin: 02/25/18 21:51 Dose: 81 mg Atorvastatin Calcium (Lipitor -) 80 mg PO HS [facility] Last Admin: 02/25/18 21:52 Dose: 80 mg Carvedilol (Coreg -) 25 mg PO BID [facility] Last Admin: 02/26/18 11:15 Dose: 25 mg Clopidogrel Bisulfate (Plavix -) 75 mg PO DAILY [facility] Last Admin: 02/26/18 11:15 Dose: 75 mg Docusate Sodium (Colace -) 100 mg PO Q8H PRN PRN Reason: CONSTIPATION Last Admin: 02/24/18 18:29 Dose: 100 mg Heparin Sodium (Porcine) (Heparin -) 5,000 unit SQ TID [facility] Last Admin: 02/26/18 14:43 Dose: 5,000 unit Vancomycin HCl 1,250 mg/ (Dextrose) 250 mls @ 250 mls/2 hr IVPB DAILY [facility]; Protocol Last Admin: 02/26/18 10:26 Dose: Not Given Piperacillin Sod/Tazobactam (Sod 3.375 gm/ Dextrose) 50 mls @ 100 mls/hr IVPB Q8H-IV [facility]; Protocol Last Admin: 02/26/18 11:16 Dose: 100 mls/hr Insulin Aspart (Novolog Mix 70/30 Vial) 10 units SQ BIDAC [facility] Last Admin: 02/26/18 06:23 Dose: 10 units Insulin Aspart (Novolog Vial Sliding Scale -) 1 vial SQ TIDAC [facility]; Protocol Pantoprazole Sodium (Protonix -) 40 mg PO DAILY [facility] Ranolazine (Ranexa -) 1,000 mg PO BID [facility] Last Admin: 02/26/18 11:16 Dose: 1,000 mg Spironolactone (Aldactone -) 25 mg PO DAILY [facility] Last Admin: 02/26/18 11:15 Dose: 25 mg Thiamine HCl (Vitamin B1 -) 100 mg PO DAILY [facility] Last Admin: 02/26/18 11:15 Dose: 100 mg ASSESSMENT AND PLAN:
[2018-02-26] MEDS: PANTOPRAZOLE 40 MG TABLET (FP) PO SCH (17:26)
[2018-02-26] MEDS ORDERED: PT OWN MED DRAWER 7, Y5N ONE (21:41)
[2018-02-26] MEDS: ASPIRIN 81 MG CHEWABLE TABLETS PO SCH (22:13)
[2018-02-26] MEDS: ATORVASTATIN CA 80 MG TABLET (FP) PO SCH (22:13)
[2018-02-27] MEDS ORDERED: DEXTROSE 5%-WATER - 50 ML IVPB ONE ×3 (02:28→16:49)
[2018-02-27] MEDS ORDERED: PIPERACILLIN/TAZOBACTAM 3.375 GM VIAL IVPB ONE ×3 (02:28→16:49)
[2018-02-27] MEDS: PIPERACILLIN/TAZOB 3.375 GM 3.375 GM in DEXTROSE 5%-WATER - 50 ML IVPB SCH ×3 (02:32→17:07)
[2018-02-27] MEDS: HEPARIN NA (PORCINE) 5,000 UNITS/ML 1ML VIAL SQ SCH ×3 (06:42→21:37)
[2018-02-27] MEDS: INSULIN (NOVOLOG MIX 70/30) 100 UNITS/ML MDV SQ SCH ×2 (06:49→16:14)
[2018-02-27] MEDS: INSULIN SLIDING SCALE (NOVOLOG) 1 VIAL SQ SCH ×3 (06:56→16:15)
[2018-02-27] MEDS ORDERED: RANOLAZINE E.R. 500 MG TABLET (FP) ONE ×2 (09:14→21:27)
[2018-02-27] MEDS ORDERED: PT OWN MED DRAWER 7, Y5N ONE (09:16)
[2018-02-27] MEDS: CLOPIDOGREL BISULFATE 75 MG TABLET (FP) PO SCH (09:28)
[2018-02-27] MEDS: RANOLAZINE E.R. 1,000 MG TABLET (FP) PO SCH ×2 (09:28→21:37)
[2018-02-27] MEDS: PANTOPRAZOLE 40 MG TABLET (FP) PO SCH (09:28)
[2018-02-27] MEDS: THIAMINE HCL 100 MG TABLET (FP) PO SCH (09:29)
[2018-02-27] MEDS: CARVEDILOL 25 MG TABLET (FP) PO SCH ×2 (09:30→21:37)
[2018-02-27] MEDS: VANCOMYCIN 1,250 MG in DEXTROSE 5%-WATER - 250 ML IVPB SCH (10:48)
--- NOTE | 2018-02-27 11:05 | PN ---
Progress Note, Physician History of Present Illness: Patient is a 72-year-old male ([facility]) with past medical history of IDDM, systolic CHF, HTN, CABG ?2008 after [place], stents ?3, HLD, CVA x 5, PAD , dementia, who presents to the emergency department today with a right toe infection. Patient has dementia and is unable to communicate at baseline. He presents with his family who provides in history of present illness. Family states that they returned from the [facility] today. He was treated at a local hospital in the for a toe infection to the right first toe. States that he received ampicillin and the wound was debrided in the hospital. They state that now they believe the toe was worse. Denies fevers, cough, nausea and vomiting. - Current Medication List Current Medications: Active Medications Aspirin (Asa -) 81 mg PO HS [facility] Last Admin: 02/26/18 22:13 Dose: 81 mg Atorvastatin Calcium (Lipitor -) 80 mg PO HS [facility] Last Admin: 02/26/18 22:13 Dose: 80 mg Carvedilol (Coreg -) 25 mg PO BID [facility] Last Admin: 02/27/18 09:30 Dose: 25 mg Clopidogrel Bisulfate (Plavix -) 75 mg PO DAILY [facility] Last Admin: 02/27/18 09:28 Dose: 75 mg Docusate Sodium (Colace -) 100 mg PO Q8H PRN PRN Reason: CONSTIPATION Last Admin: 02/24/18 18:29 Dose: 100 mg Heparin Sodium (Porcine) (Heparin -) 5,000 unit SQ TID [facility] Last Admin: 02/27/18 06:42 Dose: 5,000 unit Vancomycin HCl 1,250 mg/ (Dextrose) 250 mls @ 250 mls/2 hr IVPB DAILY [facility]; Protocol Last Admin: 02/27/18 10:48 Dose: 250 mls/2 hr Piperacillin Sod/Tazobactam (Sod 3.375 gm/ Dextrose) 50 mls @ 100 mls/hr IVPB Q8H-IV [facility]; Protocol Last Admin: 02/27/18 10:48 Dose: 100 mls/hr Insulin Aspart (Novolog Mix 70/30 Vial) 10 units SQ BIDAC [facility] Last Admin: 02/27/18 06:49 Dose: 10 units Insulin Aspart (Novolog Vial Sliding Scale -) 1 vial SQ TIDAC [facility]; Protocol Last Admin: 06/29/18 06:56 Dose: 4 units Pantoprazole Sodium (Protonix -) 40 mg PO DAILY [facility] Last Admin: 02/27/18 09:28 Dose: 40 mg Ranolazine (Ranexa -) 1,000 mg PO BID [facility] Last Admin: 02/27/18 09:28 Dose: 1,000 mg Thiamine HCl (Vitamin B1 -) 100 mg PO DAILY [facility] Last Admin: 02/27/18 09:29 Dose: 100 mg - Objective Vital Signs: Vital Signs Temperature 98.0 F 02/27/18 06:36 Pulse Rate 90 02/27/18 06:36 Respiratory Rate 20 02/27/18 06:36 Blood Pressure 136/90 02/27/18 06:36 O2 Sat by Pulse Oximetry (%) 97 02/26/18 21:00 Eyes: Yes: WNL, Conjunctiva Clear, EOM Intact HENT: Yes: WNL, Atraumatic, Normocephalic Neck: Yes: WNL, Supple, Trachea Midline Cardiovascular: Yes: WNL, Regular Rate and Rhythm Respiratory: Yes: WNL, Regular, CTA Bilaterally Gastrointestinal: Yes: WNL, Normal Bowel Sounds Genitourinary: Yes: WNL Musculoskeletal: Yes: WNL Extremities: Yes: WNL Edema: No Integumentary: Yes: WNL Neurological: Yes: WNL, Alert, Oriented ...Motor Strength: WNL Psychiatric: Yes: WNL Labs: CBC, BMP 02/26/18 06:20 02/26/18 06:20 INR, PTT INR 1.19 (0.82-1.09) H 02/22/18 11:08 Assessment/Plan - Problems (1) IDDM (insulin dependent diabetes mellitus) Code(s): E11.9 - TYPE 2 DIABETES MELLITUS WITHOUT COMPLICATIONS; Z79.4 - OBSTETRIC ANAESTHETIST (CURRENT) USE OF INSULIN (2) Necrosis of toe Assessment/Plan: CTA results noted: extensive bilateral arterial disease. See "Coronary artery disease" regarding prior coronary angiogram. Code(s): I96 - GANGRENE, NOT ELSEWHERE CLASSIFIED (3) Chronic systolic (congestive) heart failure Assessment/Plan: Moderately reduced LVEF noted on 2015 ECHO; study 02/25/2018 now shows moderate- severely reduced LVEF, with severe [place] and [place], severe pulmonary HTN. Presently on valsartan, carvedilol, Ranexa, and spironolactone. F/u BUN/Cr, Is and Os, daily weight, electrolytes. Code(s): I50.22 - CHRONIC SYSTOLIC (CONGESTIVE) HEART FAILURE (4) Coronary artery disease Assessment/Plan: Pt had CABG in ?2007 after [place], per family. Discussed case again with Dr. Stef Mackey who, in 2012, performed coronary angiogram. Triple-vessel disease was noted; a vein graft to diagonal graft was stented, and pt returned 07/2013 for RCA stent. He was to return for stent of vein graft to diagonal. Moderately severe LV systolic dysfunction on ECHO this admission (in 2012, was mildly reduced LVEF). Will order stress Lexiscan MIBI when pt is stable (presently with acute ARF, which needs to be corrected before pt would be eligible for coronary angiogram, should it be considered necessary). Code(s): I25.10 - ATHSCL HEART DISEASE OF [place] CORONARY ARTERY W/O ANG PCTRS Qualifiers: Coronary Disease-Associated Artery/Lesion type: [place] artery [place] vs. transplanted heart: [place] heart Associated angina: without angina Qualified Code(s): I25.10 - Atherosclerotic heart disease of [place] coronary artery without angina pectoris (5) Dementia Assessment/Plan: see under "CVA" Code(s): F03.90 - UNSPECIFIED DEMENTIA WITHOUT BEHAVIORAL DISTURBANCE (6) S/P CABG (coronary artery bypass graft) Assessment/Plan: see under "coronary artery disease" Code(s): Z95.1 - PRESENCE OF AORTOCORONARY BYPASS GRAFT (7) Vision loss of right eye Code(s): H54.61 - UNQUALIFIED VISUAL LOSS, RIGHT EYE, NORMAL VISION LEFT EYE (8) Hyperlipidemia Assessment/Plan: On atorvastatin 80 mg daily; LDL 76; HDL 30 mg/dL. Code(s): E78.5 - HYPERLIPIDEMIA, UNSPECIFIED (9) CVA (cerebral vascular accident) Assessment/Plan: Family states pt has had five CVAs over the past several years, and believes his "dementia" is due to these ([address] noted multiple cortical infarcts, some new since 2013). f/u with neurologist. Code(s): I63.9 - CEREBRAL INFARCTION, UNSPECIFIED (10) Renal dysfunction Assessment/Plan: f/u with electron gun assembler. Code(s): N28.9 - DISORDER OF KIDNEY AND URETER, UNSPECIFIED
[2018-02-27 13:09] LABS: ANION GAP 7 (8-16); BLOOD UREA NITROGEN 30 mg/dL (7-18); CALCIUM 8.3 mg/dL (8.5-10.1); CHLORIDE 103 mmol/L (98-107); CO2 28 mmol/L (21-32); CREATININE 2.3 mg/dL (0.7-1.3); GLUCOSE,RANDOM 140 mg/dL (74-106); POTASSIUM 4.3 mmol/L (3.5-5.1); SODIUM 138 mmol/L (136-145)
[2018-02-27 14:00] LABS: BASO % 0.8 % (0-2.0); EOS % 5.1 % (0-4.5); HEMATOCRIT 28.3 % (35.4-49); HEMOGLOBIN 9.5 GM/dL (11.7-16.9); LYMPH % 9.6 % (8-40); MCH 29.7 pg (25.7-33.7); MCHC 33.4 g/dl (32.0-35.9); MEAN CELL VOLUME 88.9 fl (80-96); MEAN PLT VOLUME 10.5 fl (7.5-11.1); MONO % 11.3 % (3.8-10.2); NEUT % 73.2 % (42.8-82.8); PLATELET COUNT 214 K/MM3 (134-434); RBC 3.19 M/mm3 (4.00-5.60); RDW 14.5 % (11.9-15.9); WHITE BLOOD COUNT 9.2 K/mm3 (4.0-10.0)
--- NOTE | 2018-02-27 14:29 | PN ---
Progress Note, Physician History of Present Illness: no new issues - Current Medication List Current Medications: Active Medications Aspirin (Asa -) 81 mg PO HS [facility] Last Admin: 02/26/18 22:13 Dose: 81 mg Atorvastatin Calcium (Lipitor -) 80 mg PO HS [facility] Last Admin: 02/26/18 22:13 Dose: 80 mg Carvedilol (Coreg -) 25 mg PO BID [facility] Last Admin: 02/27/18 09:30 Dose: 25 mg Clopidogrel Bisulfate (Plavix -) 75 mg PO DAILY [facility] Last Admin: 02/27/18 09:28 Dose: 75 mg Docusate Sodium (Colace -) 100 mg PO Q8H PRN PRN Reason: CONSTIPATION Last Admin: 02/24/18 18:29 Dose: 100 mg Heparin Sodium (Porcine) (Heparin -) 5,000 unit SQ TID [facility] Last Admin: 02/27/18 13:47 Dose: 5,000 unit Vancomycin HCl 1,250 mg/ (Dextrose) 250 mls @ 250 mls/2 hr IVPB DAILY [facility]; Protocol Last Admin: 02/27/18 10:48 Dose: 250 mls/2 hr Piperacillin Sod/Tazobactam (Sod 3.375 gm/ Dextrose) 50 mls @ 100 mls/hr IVPB Q8H-IV [facility]; Protocol Last Admin: 02/27/18 10:48 Dose: 100 mls/hr Insulin Aspart (Novolog Mix 70/30 Vial) 10 units SQ BIDAC [facility] Last Admin: 02/27/18 06:49 Dose: 10 units Insulin Aspart (Novolog Vial Sliding Scale -) 1 vial SQ TIDAC [facility]; Protocol Last Admin: 02/27/18 12:00 Dose: Not Given Pantoprazole Sodium (Protonix -) 40 mg PO DAILY [facility] Last Admin: 02/27/18 09:28 Dose: 40 mg Ranolazine (Ranexa -) 1,000 mg PO BID [facility] Last Admin: 02/27/18 09:28 Dose: 1,000 mg Thiamine HCl (Vitamin B1 -) 100 mg PO DAILY [facility] Last Admin: 02/27/18 09:29 Dose: 100 mg - Objective Vital Signs: Vital Signs Temperature 97.8 F 02/27/18 08:00 Pulse Rate 90 02/27/18 06:36 Respiratory Rate 96 H 02/27/18 08:00 Blood Pressure 161/85 02/27/18 08:00 O2 Sat by Pulse Oximetry (%) 97 02/26/18 21:00 Constitutional: Yes: No Distress, Calm Cardiovascular: Yes: S1, S2 Respiratory: Yes: Regular, CTA Bilaterally Gastrointestinal: Yes: Normal Bowel Sounds, Soft Musculoskeletal: Yes: WNL Extremities: Yes: Other Wound/Incision: Yes: Other (gangrene of the toe) Neurological: Yes: Alert Labs: CBC, BMP 02/27/18 13:25 02/27/18 12:15 INR, PTT INR 1.19 (0.82-1.09) H 02/22/18 11:08 Assessment/Plan his is a 72 year old male with PMHx of IDDM, HTN, CABG, CVA, hyperlipidemia, dementia, who presented to the ED with right foot first digit gangrene. 1) Right foot first digit wet gangrene 2) Non-palpable right foot pulses 3) IDDM 4) CAD s/p CABG and stenting 5) HTN 6) Hyperlipidemia plan continue abx await for sesnitivities await for surgical plan rest as per the team
--- NOTE | 2018-02-27 15:35 | PN ---
Physical Exam: SUBJECTIVE: Patient seen and examined at the bedside. Awake, alert, in no acute distress OBJECTIVE: Vital Signs Period Temp Pulse Resp BP Sys/[place] Pulse Ox Last 24 Hr 97.8 F-98.0 F 80-90 20-96 130-161/68-90 97 GENERAL: The patient is awake, in no acute distress. HEAD: Normal with no signs of trauma. EYES: PERRL, extraocular movements intact, sclera anicteric, conjunctiva clear. No ptosis. ENT: Ears normal, nares patent, oropharynx clear without exudates, moist mucous membranes. NECK: Trachea midline, full range of motion, supple. LUNGS: left lung diminished with evidence of congestion HEART: Regular rate and rhythm, ABDOMEN: Soft, nontender, nondistended, normoactive bowel sounds, no guarding, no rebound, no hepatosplenomegaly, no masses. EXTREMITIES: Right lower ext great wound toe with dry gangrene NEUROLOGICAL: Cranial nerves II through XII grossly intact. Normal speech, gait not observed. PSYCH: Normal mood, normal affect. S Laboratory Results - last 24 hr 02/26/18 02/26/18 02/27/18 10:55 17:20 06:47 WBC RBC Hgb Hct MCV MCH MCHC RDW Plt Count MPV Absolute Neuts (auto) Neutrophils % Lymphocytes % Monocytes % Eosinophils % Basophils % Nucleated RBC % Sodium Potassium Chloride Carbon Dioxide Anion Gap BUN Creatinine Creat Clearance w eGFR POC Glucometer 146 192 Random Glucose Calcium Stool Occult Blood Negative 02/27/18 02/27/18 02/27/18 08:11 11:06 12:15 WBC RBC Hgb Hct MCV MCH MCHC RDW Plt Count MPV Absolute Neuts (auto) Neutrophils % Lymphocytes % Monocytes % Eosinophils % Basophils % Nucleated RBC % Sodium 138 Potassium 4.3 Chloride 103 Carbon Dioxide 28 Anion Gap 7 L BUN 30 H Creatinine 2.3 H Creat Clearance w eGFR 28.25 POC Glucometer 135 128 Random Glucose 140 H Calcium 8.3 L Stool Occult Blood 02/27/18 13:25 WBC 9.2 RBC 3.19 L Hgb 9.5 L Hct 28.3 L MCV 88.9 MCH 29.7 MCHC 33.4 RDW 14.5 Plt Count 214 MPV 10.5 Absolute Neuts (auto) 6.8 Neutrophils % 73.2 Lymphocytes % 9.6 Monocytes % 11.3 H Eosinophils % 5.1 H Basophils % 0.8 Nucleated RBC % 0 Sodium Potassium Chloride Carbon Dioxide Anion Gap BUN Creatinine Creat Clearance w eGFR POC Glucometer Random Glucose Calcium Stool Occult Blood Active Medications Generic Name Dose Route Start Last Admin Trade Name Freq PRN Reason Stop Dose Admin Aspirin 81 mg 02/22/18 22:00 02/26/18 22:13 Asa - PO 81 mg HS [facility] Administration Atorvastatin Calcium 80 mg 02/22/18 22:00 02/26/18 22:13 Lipitor - PO 80 mg HS [facility] Administration Carvedilol 25 mg 02/22/18 22:00 02/27/18 09:30 Coreg - PO 25 mg BID [facility] Administration Clopidogrel Bisulfate 75 mg 02/23/18 10:00 02/27/18 09:28 Plavix - PO 75 mg DAILY [facility] Administration Docusate Sodium 100 mg 02/24/18 16:54 02/24/18 18:29 Colace - PO 100 mg Q8H PRN Administration CONSTIPATION Heparin Sodium (Porcine) 5,000 unit 02/22/18 22:00 02/27/18 13:47 Heparin - SQ 5,000 unit TID [facility] Administration Vancomycin HCl 1,250 mg/ 250 mls @ 250 mls/2 hr 02/24/18 10:00 02/27/18 10:48 Dextrose IVPB 250 mls/2 hr DAILY [facility] Administration Protocol Piperacillin Sod/Tazobactam 50 mls @ 100 mls/hr 02/23/18 18:00 02/27/18 10:48 Sod 3.375 gm/ Dextrose IVPB 100 mls/hr Q8H-IV [facility] Administration Protocol Insulin Aspart 10 units 02/23/18 07:00 02/27/18 06:49 Novolog Mix 70/30 Vial SQ 10 units BIDAC [facility] Administration Insulin Aspart 1 vial 02/26/18 16:30 02/27/18 12:00 Novolog Vial Sliding Scale - SQ Not Given TIDAC [facility] Protocol Pantoprazole Sodium 40 mg 02/26/18 15:45 02/27/18 09:28 Protonix - PO 40 mg DAILY [facility] Administration Ranolazine 1,000 mg 02/22/18 22:00 02/27/18 09:28 Ranexa - PO 1,000 mg BID [facility] Administration Thiamine HCl 100 mg 02/23/18 10:00 02/27/18 09:29 Vitamin B1 - PO 100 mg DAILY [facility] Administration ASSESSMENT/PLAN: Patient is a 72 year old male with a significant past medical history of diabetes, hypertension, CABG, CVAs, hyperlipidemia and dementia. He presents to the ED on 02/22/2018 for right great toe necrosis/gangrene. Patient reportedly was treated with debridement in the [place] and reports worsening of the toe wound prompting an ED visit. Imaging: CTA with runoff >has 70-90% stenosis in right SFA and popliteal artery with collateral circulation going to foot. Vascular Right great toe dry gangrene. On Zoysn and Vanco. Seen by vascular, notes reviewed. CTA with runoff noted. Follow up wound culture. Foot xray with no evidence of osteo. MRI unable to be performed secondary to cardiac stents. No vascular interventions until cleared by cardiology. Card: Hypertension, controlled On Diovan, Coreg 25mg BID. Monitor BP CAD/CABG, history On Plavix, ASA, Ranexa, Coreq, Lipitor CABG after [place] in 2007. Patient had a coronary angiogram in 2012 and triple vessel disease was noted, a vein graft to diagnonal graft was stented and patient had RCA stent. Patient did not follow up after procedure. Patient for possible coronary angiotram, but now has TREVOR. Hyperlipidemia, chronic On Lipitor Prolonged Qt Renal TREVOR, acute Avoid nephrotoxins. Renal consulted. Endocrine: Diabetes, chronic On SS and standing 70/30, tightened short acting for elevated BGMs. Neuro: CVAs, on ASA. History of multiple CVAs. Not followed by neuro outpatient. Consult placed. Dementia, chronic At baseline FEN NS @ 50cc/hr Monitor electrolytes Diabetic diet Prophy Heparin Protonix disposition: full code Visit type - Emergency Visit Emergency Visit: Yes ED Registration Date: 02/22/18 Care time: The patient presented to the Emergency Department on the above date and was hospitalized for further evaluation of their emergent condition. - New Patient This patient is new to me today: Yes Date on this admission: 02/27/18 - Critical Care Critical Care patient: No - Discharge Referral Referred to [facility] No
--- NOTE | 2018-02-27 20:26 | PN ---
Progress Note (short form) - Note Progress Note: Renal follow up for TREVOR Pt seen and examined at the bedside no acute complaints making urine, no sob, chest pain, abd pain Vital Signs Temperature 98.0 F 02/27/18 14:00 Pulse Rate 90 02/27/18 06:36 Respiratory Rate 20 02/27/18 14:00 Blood Pressure 138/70 02/27/18 14:00 O2 Sat by Pulse Oximetry (%) 97 02/26/18 21:00 Intake & Output 02/24/18 02/25/18 02/26/18 02/27/18 23:59 23:59 23:59 23:59 Intake Total 1000 927 131 0871 Balance 1000 574 808 6966 NAD awake and alert soft NT/ND No LE edema CBC, BMP 02/27/18 13:25 02/27/18 12:15 Current Medications Aspirin (Asa -) 81 mg PO HS [facility] Last Admin: 02/26/18 22:13 Dose: 81 mg Atorvastatin Calcium (Lipitor -) 80 mg PO HS [facility] Last Admin: 02/26/18 22:13 Dose: 80 mg Carvedilol (Coreg -) 25 mg PO BID [facility] Last Admin: 02/27/18 09:30 Dose: 25 mg Clopidogrel Bisulfate (Plavix -) 75 mg PO DAILY [facility] Last Admin: 02/27/18 09:28 Dose: 75 mg Docusate Sodium (Colace -) 100 mg PO Q8H PRN PRN Reason: CONSTIPATION Last Admin: 02/24/18 18:29 Dose: 100 mg Heparin Sodium (Porcine) (Heparin -) 5,000 unit SQ TID [facility] Last Admin: 02/27/18 13:47 Dose: 5,000 unit Vancomycin HCl 1,250 mg/ (Dextrose) 250 mls @ 250 mls/2 hr IVPB DAILY [facility]; Protocol Last Admin: 02/27/18 10:48 Dose: 250 mls/2 hr Piperacillin Sod/Tazobactam (Sod 3.375 gm/ Dextrose) 50 mls @ 100 mls/hr IVPB Q8H-IV [facility]; Protocol Last Admin: 02/27/18 17:07 Dose: 100 mls/hr Insulin Aspart (Novolog Mix 70/30 Vial) 10 units SQ BIDAC [facility] Last Admin: 02/27/18 16:14 Dose: 10 units Insulin Aspart (Novolog Vial Sliding Scale -) 1 vial SQ TIDAC [facility]; Protocol Last Admin: 02/27/18 16:15 Dose: 4 units Pantoprazole Sodium (Protonix -) 40 mg PO DAILY [facility] Last Admin: 02/27/18 09:28 Dose: 40 mg Ranolazine (Ranexa -) 1,000 mg PO BID [facility] Last Admin: 02/27/18 09:28 Dose: 1,000 mg Thiamine HCl (Vitamin B1 -) 100 mg PO DAILY [facility] Last Admin: 02/27/18 09:29 Dose: 100 mg 72 year old [place]ian speaking male from the [place] with a past medical history of DM, HTN, CAD s/p CABG in 2007, 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 #TREVOR secondary to contrast nephropathy #PVD #CVA Renal function slighly improved expect Cr to remain elevated for 5-7 days Keep MAP > 65 avoid nephrotoxins off IVF Will follow Reg Ku DO
[2018-02-27] MEDS ORDERED: INSULIN (NOVOLOG) ASPART 100 UNITS/ML 10ML VIAL ONE (21:28)
[2018-02-27] MEDS: ASPIRIN 81 MG CHEWABLE TABLETS PO SCH (21:37)
[2018-02-27] MEDS: ATORVASTATIN CA 80 MG TABLET (FP) PO SCH (21:37)
[2018-02-28] MEDS ORDERED: PT OWN MED DRAWER 7, Y5N ONE (01:17)
[2018-02-28] MEDS ORDERED: PIPERACILLIN/TAZOBACTAM 3.375 GM VIAL IVPB ONE ×3 (01:20→17:32)
[2018-02-28] MEDS: PIPERACILLIN/TAZOB 3.375 GM 3.375 GM in DEXTROSE 5%-WATER - 50 ML IVPB SCH ×3 (01:29→17:37)
[2018-02-28] MEDS: INSULIN SLIDING SCALE (NOVOLOG) 1 VIAL SQ SCH ×3 (06:42→17:14)
[2018-02-28] MEDS: HEPARIN NA (PORCINE) 5,000 UNITS/ML 1ML VIAL SQ SCH ×3 (06:42→22:33)
[2018-02-28] MEDS: INSULIN (NOVOLOG MIX 70/30) 100 UNITS/ML MDV SQ SCH ×2 (06:49→17:14)
[2018-02-28] MEDS ORDERED: RANOLAZINE E.R. 500 MG TABLET (FP) ONE ×2 (09:26→22:13)
[2018-02-28] MEDS ORDERED: DEXTROSE 5%-WATER - 50 ML IVPB ONE ×2 (09:27→17:33)
[2018-02-28] MEDS: PANTOPRAZOLE 40 MG TABLET (FP) PO SCH (09:33)
[2018-02-28] MEDS: CARVEDILOL 25 MG TABLET (FP) PO SCH ×2 (09:33→22:54)
[2018-02-28] MEDS: CLOPIDOGREL BISULFATE 75 MG TABLET (FP) PO SCH (09:33)
[2018-02-28] MEDS: RANOLAZINE E.R. 1,000 MG TABLET (FP) PO SCH ×2 (09:33→22:54)
[2018-02-28] MEDS: THIAMINE HCL 100 MG TABLET (FP) PO SCH (09:33)
[2018-02-28 10:26] LABS: BASO % 0.7 % (0-2.0); EOS % 5.5 % (0-4.5); HEMATOCRIT 30.8 % (35.4-49); HEMOGLOBIN 10.2 GM/dL (11.7-16.9); LYMPH % 11.5 % (8-40); MCH 29.4 pg (25.7-33.7); MCHC 33.1 g/dl (32.0-35.9); MEAN CELL VOLUME 88.8 fl (80-96); MEAN PLT VOLUME 10.5 fl (7.5-11.1); MONO % 11.4 % (3.8-10.2); NEUT % 70.9 % (42.8-82.8); PLATELET COUNT 223 K/MM3 (134-434); RBC 3.46 M/mm3 (4.00-5.60); RDW 14.6 % (11.9-15.9); WHITE BLOOD COUNT 8.8 K/mm3 (4.0-10.0)
[2018-02-28 10:28] LABS: ANION GAP 6 (8-16); BLOOD UREA NITROGEN 31 mg/dL (7-18); CALCIUM 8.2 mg/dL (8.5-10.1); CHLORIDE 104 mmol/L (98-107); CO2 27 mmol/L (21-32); CREATININE 2.3 mg/dL (0.7-1.3); GLUCOSE,RANDOM 110 mg/dL (74-106); MAGNESIUM 2.4 mg/dL (1.8-2.4); POTASSIUM 4.5 mmol/L (3.5-5.1); SODIUM 137 mmol/L (136-145)
--- NOTE | 2018-02-28 10:44 | PN ---
Progress Note (short form) - Note Progress Note: Renal follow up for TREVOR Pt seen and examined at the bedside no acute complaints Vital Signs Temperature 98.6 F 02/28/18 10:00 Pulse Rate 82 02/28/18 10:00 Respiratory Rate 20 02/28/18 10:00 Blood Pressure 143/86 02/28/18 10:00 O2 Sat by Pulse Oximetry (%) 97 02/27/18 22:00 Intake & Output 02/25/18 02/26/18 02/27/18 02/28/18 23:59 23:59 23:59 23:59 Intake Total 569 877 3728 50 Balance 996 423 2174 50 NAD awake and alert soft NT/ND No LE edema CBC, BMP 02/28/18 09:30 02/28/18 09:30 Current Medications Aspirin (Asa -) 81 mg PO HS [facility] Last Admin: 02/27/18 21:37 Dose: 81 mg Atorvastatin Calcium (Lipitor -) 80 mg PO HS [facility] Last Admin: 02/27/18 21:37 Dose: 80 mg Carvedilol (Coreg -) 25 mg PO BID [facility] Last Admin: 02/28/18 09:33 Dose: 25 mg Clopidogrel Bisulfate (Plavix -) 75 mg PO DAILY [facility] Last Admin: 02/28/18 09:33 Dose: 75 mg Docusate Sodium (Colace -) 100 mg PO Q8H PRN PRN Reason: CONSTIPATION Last Admin: 02/24/18 18:29 Dose: 100 mg Heparin Sodium (Porcine) (Heparin -) 5,000 unit SQ TID [facility] Last Admin: 02/28/18 06:42 Dose: 5,000 unit Piperacillin Sod/Tazobactam (Sod 3.375 gm/ Dextrose) 50 mls @ 100 mls/hr IVPB Q8H-IV [facility]; Protocol Last Admin: 02/28/18 09:32 Dose: 100 mls/hr Insulin Aspart (Novolog Mix 70/30 Vial) 10 units SQ BIDAC [facility] Last Admin: 02/28/18 06:49 Dose: 10 units Insulin Aspart (Novolog Vial Sliding Scale -) 1 vial SQ TIDAC [facility]; Protocol Last Admin: 02/28/18 06:42 Dose: Not Given Pantoprazole Sodium (Protonix -) 40 mg PO DAILY [facility] Last Admin: 02/28/18 09:33 Dose: 40 mg Ranolazine (Ranexa -) 1,000 mg PO BID [facility] Last Admin: 02/28/18 09:33 Dose: 1,000 mg Thiamine HCl (Vitamin B1 -) 100 mg PO DAILY [facility] Last Admin: 02/28/18 09:33 Dose: 100 mg 72 year old [place]ic speaking male from the [place] with a past medical history of DM, HTN, CAD s/p CABG in 2007, 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 #TREVOR secondary to contrast nephropathy #PVD #CVA Renal function stable w/o evidence of hyperkalemia, acidosis or volume overload continue to trend renal function and electrolytes daily would avoid further exposure to nephrotoxins no CHRISTA/ARB for now Reg Ku DO
[2018-02-28] MEDS ORDERED: INSULIN (NOVOLOG) ASPART 100 UNITS/ML 10ML VIAL ONE ×2 (11:25→17:12)
--- NOTE | 2018-02-28 12:15 | PN ---
Progress Note, Physician History of Present Illness: no new issues stable awaiting for final plan - Current Medication List Current Medications: Active Medications Aspirin (Asa -) 81 mg PO HS [facility] Last Admin: 02/27/18 21:37 Dose: 81 mg Atorvastatin Calcium (Lipitor -) 80 mg PO HS [facility] Last Admin: 02/27/18 21:37 Dose: 80 mg Carvedilol (Coreg -) 25 mg PO BID [facility] Last Admin: 02/28/18 09:33 Dose: 25 mg Clopidogrel Bisulfate (Plavix -) 75 mg PO DAILY [facility] Last Admin: 02/28/18 09:33 Dose: 75 mg Docusate Sodium (Colace -) 100 mg PO Q8H PRN PRN Reason: CONSTIPATION Last Admin: 02/24/18 18:29 Dose: 100 mg Heparin Sodium (Porcine) (Heparin -) 5,000 unit SQ TID [facility] Last Admin: 02/28/18 06:42 Dose: 5,000 unit Piperacillin Sod/Tazobactam (Sod 3.375 gm/ Dextrose) 50 mls @ 100 mls/hr IVPB Q8H-IV [facility]; Protocol Last Admin: 02/28/18 09:32 Dose: 100 mls/hr Insulin Aspart (Novolog Mix 70/30 Vial) 10 units SQ BIDAC [facility] Last Admin: 02/28/18 06:49 Dose: 10 units Insulin Aspart (Novolog Vial Sliding Scale -) 1 vial SQ TIDAC [facility]; Protocol Last Admin: 02/28/18 11:25 Dose: 4 units Pantoprazole Sodium (Protonix -) 40 mg PO DAILY [facility] Last Admin: 02/28/18 09:33 Dose: 40 mg Ranolazine (Ranexa -) 1,000 mg PO BID [facility] Last Admin: 02/28/18 09:33 Dose: 1,000 mg Thiamine HCl (Vitamin B1 -) 100 mg PO DAILY [facility] Last Admin: 02/28/18 09:33 Dose: 100 mg - Objective Vital Signs: Vital Signs Temperature 98.6 F 02/28/18 10:00 Pulse Rate 82 02/28/18 10:00 Respiratory Rate 20 02/28/18 10:00 Blood Pressure 143/86 02/28/18 10:00 O2 Sat by Pulse Oximetry (%) 97 02/27/18 22:00 Constitutional: Yes: No Distress, Calm Cardiovascular: Yes: S1, S2 Respiratory: Yes: Regular, CTA Bilaterally Gastrointestinal: Yes: Normal Bowel Sounds, Soft Extremities: Yes: Other Neurological: Yes: Alert Psychiatric: Yes: Alert Labs: CBC, BMP 02/28/18 09:30 02/28/18 09:30 INR, PTT INR 1.19 (0.82-1.09) H 02/22/18 11:08 Assessment/Plan his is a 72 year old male with PMHx of IDDM, HTN, CABG, CVA, hyperlipidemia, dementia, who presented to the ED with right foot first digit gangrene. 1) Right foot first digit wet gangrene 2) Non-palpable right foot pulses 3) IDDM 4) CAD s/p CABG and stenting 5) HTN 6) Hyperlipidemia plan continue zosyn all results noted will stop vanco rest as per the team
--- NOTE | 2018-02-28 15:04 | PN ---
Physical Exam: SUBJECTIVE: Patient seen and examined at the bedside. No pain, no discomfort. OBJECTIVE: cardiac workup ongoing, possible stress test before angiogram of right foot. However has TREVOR. Vital Signs Period Temp Pulse Resp BP Sys/Brumfield Pulse Ox Last 24 Hr 96.7 F-98.6 F 72-83 20-24 114-143/58-86 97 GENERAL: The patient is awake, in no acute distress. HEAD: Normal with no signs of trauma. EYES: PERRL, extraocular movements intact, sclera anicteric, conjunctiva clear. No ptosis. ENT: Ears normal, nares patent, oropharynx clear without exudates, moist mucous membranes. NECK: Trachea midline, full range of motion, supple. LUNGS: left lung diminished with evidence of congestion HEART: Regular rate and rhythm, ABDOMEN: Soft, nontender, nondistended, normoactive bowel sounds, no guarding, no rebound, no hepatosplenomegaly, no masses. EXTREMITIES: Right lower ext great wound toe with dry gangrene NEUROLOGICAL: Cranial nerves II through XII grossly intact. Normal speech, gait not observed. PSYCH: Normal mood, normal affect. Laboratory Results - last 24 hr 02/27/18 02/27/18 02/28/18 16:08 21:36 05:42 WBC RBC Hgb Hct MCV MCH MCHC RDW Plt Count MPV Absolute Neuts (auto) Neutrophils % Lymphocytes % Monocytes % Eosinophils % Basophils % Nucleated RBC % Sodium Potassium Chloride Carbon Dioxide Anion Gap BUN Creatinine Creat Clearance w eGFR POC Glucometer 212 123 129 Random Glucose Calcium Magnesium Vancomycin Pre-Dose 02/28/18 02/28/18 02/28/18 09:30 09:30 09:30 WBC 8.8 RBC 3.46 L Hgb 10.2 L Hct 30.8 L MCV 88.8 MCH 29.4 MCHC 33.1 RDW 14.6 Plt Count 223 MPV 10.5 Absolute Neuts (auto) 6.2 Neutrophils % 70.9 Lymphocytes % 11.5 Monocytes % 11.4 H Eosinophils % 5.5 H Basophils % 0.7 Nucleated RBC % 0 Sodium 137 Potassium 4.5 Chloride 104 Carbon Dioxide 27 Anion Gap 6 L BUN 31 H Creatinine 2.3 H Creat Clearance w eGFR 28.25 POC Glucometer Random Glucose 110 H D Calcium 8.2 L Magnesium 2.4 Vancomycin Pre-Dose 18.21 H* 02/28/18 11:22 WBC RBC Hgb Hct MCV MCH MCHC RDW Plt Count MPV Absolute Neuts (auto) Neutrophils % Lymphocytes % Monocytes % Eosinophils % Basophils % Nucleated RBC % Sodium Potassium Chloride Carbon Dioxide Anion Gap BUN Creatinine Creat Clearance w eGFR POC Glucometer 193 Random Glucose Calcium Magnesium Vancomycin Pre-Dose Active Medications Generic Name Dose Route Start Last Admin Trade Name Freq PRN Reason Stop Dose Admin Aspirin 81 mg 02/22/18 22:00 02/27/18 21:37 Asa - PO 81 mg HS [facility] Administration Atorvastatin Calcium 80 mg 02/22/18 22:00 02/27/18 21:37 Lipitor - PO 80 mg HS [facility] Administration Carvedilol 25 mg 02/22/18 22:00 02/28/18 09:33 Coreg - PO 25 mg BID [facility] Administration Clopidogrel Bisulfate 75 mg 02/23/18 10:00 02/28/18 09:33 Plavix - PO 75 mg DAILY [facility] Administration Docusate Sodium 100 mg 02/24/18 16:54 02/24/18 18:29 Colace - PO 100 mg Q8H PRN Administration CONSTIPATION Heparin Sodium (Porcine) 5,000 unit 02/22/18 22:00 02/28/18 13:22 Heparin - SQ 5,000 unit TID [facility] Administration Piperacillin Sod/Tazobactam 50 mls @ 100 mls/hr 02/23/18 18:00 02/28/18 09:32 Sod 3.375 gm/ Dextrose IVPB 100 mls/hr Q8H-IV [facility] Administration Protocol Insulin Aspart 10 units 02/23/18 07:00 02/28/18 06:49 Novolog Mix 70/30 Vial SQ 10 units BIDAC [facility] Administration Insulin Aspart 1 vial 02/26/18 16:30 02/28/18 11:25 Novolog Vial Sliding Scale - SQ 4 units TIDAC [facility] Administration Protocol Pantoprazole Sodium 40 mg 02/26/18 15:45 02/28/18 09:33 Protonix - PO 40 mg DAILY [facility] Administration Ranolazine 1,000 mg 02/22/18 22:00 02/28/18 09:33 Ranexa - PO 1,000 mg BID [facility] Administration Thiamine HCl 100 mg 02/23/18 10:00 02/28/18 09:33 Vitamin B1 - PO 100 mg DAILY [facility] Administration ASSESSMENT/PLAN: Patient is a 72 year old male with a significant past medical history of diabetes, hypertension, CABG, CVAs, hyperlipidemia and dementia. He presents to the ED on 02/22/2018 for right great toe necrosis/gangrene. Patient reportedly was treated with debridement in the [place] and reports worsening of the toe wound prompting an ED visit. Imaging: CTA with runoff >has 70-90% stenosis in right SFA and popliteal artery with collateral circulation going to foot. Vascular Right great toe dry gangrene. On Zoysn. vanco stopped per ID. Seen by vascular, notes reviewed. CTA with runoff noted. Foot xray with no evidence of osteo. MRI unable to be performed secondary to cardiac stents. No vascular interventions until cleared by cardiology. As per cardiology, will need stress test. Patient also now has TREVOR post CTA. Renal following. Card: CAD/CABG, history On Plavix, ASA, Ranexa, Coreq, Lipitor Hyperlipidemia, chronic On Lipitor Hypertension, controlled On Diovan, Coreg 25mg BID. Monitor BP Prolonged Qt Renal TREVOR, acute s/p CTA Avoid nephrotoxins. Renal consul Endocrine: Diabetes On SS and standing 70/30, tightened short acting for elevated BGMs. Neuro: CVAs, on ASA. History of multiple CVAs. Not followed by neuro outpatient. Consult placed. Dementia, chronic At baseline FEN NS @ 50cc/hr Monitor electrolytes Diabetic diet Prophy Heparin Protonix disposition: full code Visit type - Emergency Visit Emergency Visit: Yes ED Registration Date: 02/22/18 Care time: The patient presented to the Emergency Department on the above date and was hospitalized for further evaluation of their emergent condition. - New Patient This patient is new to me today: No - Critical Care Critical Care patient: No - Discharge Referral Referred to [facility] Med P.C.: No
--- NOTE | 2018-02-28 18:44 | CONSULT ---
Consult - text type - Consultation Consultation Note: NEUROLOGY CONSULTAION is greatly appreciated: This72 yo RH man is examined with his and aughter at the bedside. PMH sig for HTN, DM, Chol, ASHD, s/p Stents, CVA and dementia. Mintained on: Insulin; Aspirin 81; Atorvastatin; Carvedilol; Clopidogrel; Ranexa ; Spironolactone; Thiamine; and Valsartan. Recently treated in the [place] for Right great toe infection. [place] with gangrene of the right great toe. Dr. Lomeli's consult appreciated: Extensive PVD, B/L with 90% occlusion of the right COURT CRIER, SFA, Post tibial artery. ESR= 92 mm/hr. Cr/BUN= 2.3/31 EXAM: No bruits. No head trauma. Absent DP pulses. In diaper. NEURO: Follows most simple commands in Greek. Min speech output. Knows he is in a hospital. No month. No year. + Glabella, snout Left corneal opacity-blind. Blinks to threat all sampson OD. Full EOM' s. No facial. Gag OK Right drift. Decreased right grasp. Areflexic. Ankle dorsiflexion 4-/5 right, 4/5 left Plantars silent. Decreased vib to the calves. Withdraws all 4's to pinch. IMP: 1. Moderately severe, B/L cerebral dysfunction (OMS, chronic features). Multiinfarct +/- Alzheimer's disease (AD). 2. Left cerebral accentuation presumably due to CVA. 3. Severe diabetic peripheral neuropathy SUGGEST: CT of head (C-) Carotid duplex dopplers. Continue Clopidogrel (75 mg ) and ASA (81 mg) Check B12, TSH, RPR. Thank you very much, Kike Kim MD
[2018-02-28] MEDS ORDERED: DEXTROSE 50%-WATER - 25 GM/50 ML VIAL IVPUSH ONE (22:22)
--- NOTE | 2018-02-28 22:23 | PN ---
Progress Note (short form) - Note Progress Note: Paged by medical staff about BGM of 37. Pt currently slightly lethargic but alert --D50 amp NOW --BGM in 15-30min --will f/u
[2018-02-28] MEDS ORDERED: DEXTROSE 50%-WATER 25 GM/50 ML DISP.SYRIN ONE (22:25)
[2018-02-28] MEDS: ATORVASTATIN CA 80 MG TABLET (FP) PO SCH (22:54)
[2018-02-28] MEDS: ASPIRIN 81 MG CHEWABLE TABLETS PO SCH (22:54)
[2018-03-01] MEDS ORDERED: DEXTROSE 5%-WATER - 50 ML IVPB ONE ×3 (00:19→16:59)
[2018-03-01] MEDS ORDERED: PIPERACILLIN/TAZOBACTAM 3.375 GM VIAL IVPB ONE ×3 (00:19→16:59)
[2018-03-01] MEDS: PIPERACILLIN/TAZOB 3.375 GM 3.375 GM in DEXTROSE 5%-WATER - 50 ML IVPB SCH ×4 (01:12→17:42)
[2018-03-01] MEDS ORDERED: DEXTROSE 50%-WATER 25 GM/50 ML DISP.SYRIN ONE (01:28)
[2018-03-01] MEDS ORDERED: DEXTROSE 10%-WATER - 1,000 ML IV SCH (01:30)
[2018-03-01] MEDS: HEPARIN NA (PORCINE) 5,000 UNITS/ML 1ML VIAL SQ SCH ×3 (05:46→21:39)
[2018-03-01] MEDS: INSULIN SLIDING SCALE (NOVOLOG) 1 VIAL SQ SCH ×3 (06:27→16:54)
[2018-03-01] MEDS ORDERED: INSULIN (NOVOLOG) ASPART 100 UNITS/ML 10ML VIAL ONE (06:35)
[2018-03-01] MEDS: INSULIN (NOVOLOG MIX 70/30) 100 UNITS/ML MDV SQ SCH (06:54)
[2018-03-01] MEDS ORDERED: METOPROLOL TARTRATE 5 MG/5 ML VIAL IVPUSH ONE (07:08)
[2018-03-01 07:54] LABS: CHLORIDE 102 mmol/L (98-107); SODIUM 135 mmol/L (136-145)
[2018-03-01 08:13] LABS: ANION GAP 10 (8-16); BLOOD UREA NITROGEN 26 mg/dL (7-18); CALCIUM 8.7 mg/dL (8.5-10.1); CO2 23 mmol/L (21-32); CREATININE 2.1 mg/dL (0.7-1.3); GLUCOSE,RANDOM 140 mg/dL (74-106)
[2018-03-01 08:19] LABS: POTASSIUM 4.9 mmol/L (3.5-5.1)
[2018-03-01] MEDS ORDERED: METOPROLOL TARTRATE 5 MG/5 ML VIAL IVPB ONE (08:30)
[2018-03-01] MEDS ORDERED: traMADol HCL 50 MG TABLET PO ONE (09:04)
[2018-03-01] MEDS ORDERED: RANOLAZINE E.R. 500 MG TABLET (FP) ONE ×2 (09:20→20:17)
[2018-03-01] MEDS: CARVEDILOL 25 MG TABLET (FP) PO SCH ×2 (09:24→21:38)
[2018-03-01] MEDS: THIAMINE HCL 100 MG TABLET (FP) PO SCH (09:24)
[2018-03-01] MEDS: PANTOPRAZOLE 40 MG TABLET (FP) PO SCH (09:24)
[2018-03-01] MEDS: CLOPIDOGREL BISULFATE 75 MG TABLET (FP) PO SCH (09:24)
[2018-03-01] MEDS: RANOLAZINE E.R. 1,000 MG TABLET (FP) PO SCH ×2 (09:25→21:39)
[2018-03-01] MEDS ORDERED: LORazepam 2 MG/ML SDV VIAL IM ONE (11:03)
--- NOTE | 2018-03-01 11:06 | PN ---
Progress Note, Physician History of Present Illness: no new issues stable vascular on case awaiting for final plan mental status better family in the room - Current Medication List Current Medications: Active Medications Aspirin (Asa -) 81 mg PO HS [facility] Last Admin: 02/28/18 22:54 Dose: 81 mg Atorvastatin Calcium (Lipitor -) 80 mg PO HS [facility] Last Admin: 02/28/18 22:54 Dose: Not Given Carvedilol (Coreg -) 25 mg PO BID [facility] Last Admin: 03/01/18 09:24 Dose: 25 mg Clopidogrel Bisulfate (Plavix -) 75 mg PO DAILY [facility] Last Admin: 03/01/18 09:24 Dose: 75 mg Docusate Sodium (Colace -) 100 mg PO Q8H PRN PRN Reason: CONSTIPATION Last Admin: 02/24/18 18:29 Dose: 100 mg Heparin Sodium (Porcine) (Heparin -) 5,000 unit SQ TID [facility] Last Admin: 03/01/18 05:46 Dose: 5,000 unit Piperacillin Sod/Tazobactam (Sod 3.375 gm/ Dextrose) 50 mls @ 100 mls/hr IVPB Q8H-IV [facility]; Protocol Last Admin: 03/01/18 10:42 Dose: Not Given Insulin Aspart (Novolog Vial Sliding Scale -) 1 vial SQ TIDAC [facility]; Protocol Pantoprazole Sodium (Protonix -) 40 mg PO DAILY [facility] Last Admin: 03/01/18 09:24 Dose: 40 mg Ranolazine (Ranexa -) 1,000 mg PO BID [facility] Last Admin: 03/01/18 09:25 Dose: 1,000 mg Thiamine HCl (Vitamin B1 -) 100 mg PO DAILY [facility] Last Admin: 03/01/18 09:24 Dose: 100 mg - Objective Vital Signs: Vital Signs Temperature 99.1 F 03/01/18 09:00 Pulse Rate 96 H 03/01/18 09:00 Respiratory Rate 20 03/01/18 06:00 Blood Pressure 186/104 03/01/18 09:00 O2 Sat by Pulse Oximetry (%) 97 02/27/18 22:00 Constitutional: Yes: No Distress, Calm Cardiovascular: Yes: Pulse Irregular Respiratory: Yes: Regular, CTA Bilaterally Gastrointestinal: Yes: Normal Bowel Sounds, Soft Musculoskeletal: Yes: Other Extremities: Yes: Other Neurological: Yes: Alert Labs: CBC, BMP 02/28/18 09:30 03/01/18 06:00 INR, PTT INR 1.19 (0.82-1.09) H 02/22/18 11:08 Assessment/Plan his is a 72 year old male with PMHx of IDDM, HTN, CABG, CVA, hyperlipidemia, dementia, who presented to the ED with right foot first digit gangrene. 1) Right foot first digit wet gangrene 2) Non-palpable right foot pulses 3) IDDM 4) CAD s/p CABG and stenting 5) HTN 6) Hyperlipidemia plan continue zosyn all results noted will have to decide next step
--- NOTE | 2018-03-01 18:58 | PN ---
Physical Exam: SUBJECTIVE: Patient seen and examined. Agitated and combative today. Given ativan 0.25mg x 1 for agitation. OBJECTIVE: Overnight notes reviewed: hypoglycemic overnight: stopped novolog 70/30, given d10 pushes overnight. hypoglycemic likely secondary to poor PO intake. BP also elevated overnight. Given Lopressor IV. Vital Signs Period Temp Pulse Resp BP Sys/Brumfield Pulse Ox Last 24 Hr 97.3 F-99.1 F 68-97 18-20 118-186/58-110 97 GENERAL: The patient is awake, in no acute distress. Having episodes of combativeness today, agitated. HEAD: Normal with no signs of trauma. EYES: PERRL, extraocular movements intact, sclera anicteric, conjunctiva clear. No ptosis. ENT: Ears normal, nares patent, oropharynx clear without exudates, moist mucous membranes. NECK: Trachea midline, full range of motion, supple. LUNGS: left lung diminished with evidence of congestion HEART: Regular rate and rhythm, ABDOMEN: Soft, nontender, nondistended, normoactive bowel sounds, no guarding, no rebound, no hepatosplenomegaly, no masses. EXTREMITIES: Right lower ext great wound toe with dry gangrene Laboratory Results - last 24 hr 02/28/18 02/28/18 03/01/18 22:15 23:03 01:23 Sodium Potassium Chloride Carbon Dioxide Anion Gap BUN Creatinine Creat Clearance w eGFR POC Glucometer 36 104 54 Random Glucose Calcium Vitamin B12 TSH RPR Titer 03/01/18 03/01/18 03/01/18 05:16 06:00 06:00 Sodium 135 L Potassium 4.9 Chloride 102 Carbon Dioxide 23 Anion Gap 10 BUN 26 H Creatinine 2.1 H Creat Clearance w eGFR 31.38 POC Glucometer 145 Random Glucose 140 H D Calcium 8.7 Vitamin B12 620 TSH 0.23 L D RPR Titer 03/01/18 03/01/18 03/01/18 06:00 11:23 16:42 Sodium Potassium Chloride Carbon Dioxide Anion Gap BUN Creatinine Creat Clearance w eGFR POC Glucometer 207 206 Random Glucose Calcium Vitamin B12 TSH RPR Titer Nonreactive Active Medications Generic Name Dose Route Start Last Admin Trade Name Freq PRN Reason Stop Dose Admin Aspirin 81 mg 02/22/18 22:00 02/28/18 22:54 Asa - PO 81 mg HS [facility] Administration Atorvastatin Calcium 80 mg 02/22/18 22:00 02/28/18 22:54 Lipitor - PO Not Given HS [facility] Carvedilol 25 mg 02/22/18 22:00 03/01/18 09:24 Coreg - PO 25 mg BID [facility] Administration Clopidogrel Bisulfate 75 mg 02/23/18 10:00 03/01/18 09:24 Plavix - PO 75 mg DAILY [facility] Administration Docusate Sodium 100 mg 02/24/18 16:54 02/24/18 18:29 Colace - PO 100 mg Q8H PRN Administration CONSTIPATION Heparin Sodium (Porcine) 5,000 unit 02/22/18 22:00 03/01/18 13:59 Heparin - SQ 5,000 unit TID [facility] Administration Piperacillin Sod/Tazobactam 50 mls @ 100 mls/hr 02/23/18 18:00 03/01/18 17:42 Sod 3.375 gm/ Dextrose IVPB 100 mls/hr Q8H-IV [facility] Administration Protocol Insulin Aspart 1 vial 03/01/18 07:23 03/01/18 16:54 Novolog Vial Sliding Scale - SQ 4 units TIDAC [facility] Administration Protocol Pantoprazole Sodium 40 mg 02/26/18 15:45 03/01/18 09:24 Protonix - PO 40 mg DAILY [facility] Administration Ranolazine 1,000 mg 02/22/18 22:00 03/01/18 09:25 Ranexa - PO 1,000 mg BID [facility] Administration Thiamine HCl 100 mg 02/23/18 10:00 03/01/18 09:24 Vitamin B1 - PO 100 mg DAILY [facility] Administration ASSESSMENT/PLAN: Patient is a 72 year old male with a significant past medical history of diabetes, hypertension, CABG, CVAs, hyperlipidemia and dementia. He presents to the ED on 02/22/2018 for right great toe necrosis/gangrene. Patient reportedly was treated with debridement in the [place] and reports worsening of the toe wound prompting an ED visit. Imaging: CTA with runoff >has 70-90% stenosis in right SFA and popliteal artery with collateral circulation going to foot. Vascular Right great toe dry gangrene: On Zoysn. vanco stopped per ID. Seen by vascular , notes reviewed. CTA with runoff noted. Foot xray with no evidence of osteo. MRI unable to be performed secondary to cardiac stents. No vascular interventions until cleared by cardiology. As per cardiology, will need stress test. Patient also now has TREVOR post CTA. Renal following. Card: CAD/CABG:On Plavix, ASA, Ranexa, Coreq, Lipitor Hyperlipidemia: On Lipitor Hypertension: On Diovan, Coreg 25mg BID. Monitor BP. BP elevated secondary to medication refusal, now improved. Renal TREVOR, acute s/p CTA: Avoid nephrotoxins. Renal consulted and and following. Creatinine improving. Endocrine: Diabetes: Hypoglylcemic overnight, stop Novolog 70/30. Neuro: CVAs: on ASA and Plavix. History of multiple CVAs. Not followed by neuro outpatient. Neuro consulted and following. Head CT reviewed. Carotid dopplers ordered. Dementia. chronic. FEN tolerating PO Monitor electrolytes Diabetic diet Prophy Heparin Protonix disposition: full code Visit type - Emergency Visit Emergency Visit: Yes ED Registration Date: 02/22/18 Care time: The patient presented to the Emergency Department on the above date and was hospitalized for further evaluation of their emergent condition. - New Patient This patient is new to me today: No - Critical Care Critical Care patient: No - Discharge Referral Referred to [facility] Med P.C.: No Physician Referral: Tomas Patel MD ([facility])
[2018-03-01] MEDS ORDERED: PT OWN MED DRAWER 7, Y5N ONE (20:16)
[2018-03-01] MEDS: ATORVASTATIN CA 80 MG TABLET (FP) PO SCH (21:38)
[2018-03-01] MEDS: ASPIRIN 81 MG CHEWABLE TABLETS PO SCH (21:43)
[2018-03-02] MEDS ORDERED: PIPERACILLIN/TAZOBACTAM 3.375 GM VIAL IVPB ONE ×2 (01:08→10:46)
[2018-03-02] MEDS ORDERED: DEXTROSE 5%-WATER - 50 ML IVPB ONE ×2 (01:09→10:46)
[2018-03-02] MEDS: PIPERACILLIN/TAZOB 3.375 GM 3.375 GM in DEXTROSE 5%-WATER - 50 ML IVPB SCH ×2 (01:15→10:49)
[2018-03-02] MEDS: HEPARIN NA (PORCINE) 5,000 UNITS/ML 1ML VIAL SQ SCH ×3 (06:12→21:45)
[2018-03-02] MEDS: INSULIN SLIDING SCALE (NOVOLOG) 1 VIAL SQ SCH ×3 (06:26→16:52)
[2018-03-02 07:50] LABS: BASO % 0.5 % (0-2.0); EOS % 5.8 % (0-4.5); HEMATOCRIT 29.1 % (35.4-49); HEMOGLOBIN 9.6 GM/dL (11.7-16.9); LYMPH % 9.9 % (8-40); MCH 29.5 pg (25.7-33.7); MCHC 33.1 g/dl (32.0-35.9); MEAN CELL VOLUME 89.1 fl (80-96); MEAN PLT VOLUME 10.2 fl (7.5-11.1); MONO % 10.7 % (3.8-10.2); NEUT % 73.1 % (42.8-82.8); PLATELET COUNT 251 K/MM3 (134-434); RBC 3.27 M/mm3 (4.00-5.60); RDW 14.7 % (11.9-15.9)
[2018-03-02 08:13] LABS: ANION GAP 8 (8-16); BLOOD UREA NITROGEN 23 mg/dL (7-18); CALCIUM 8.1 mg/dL (8.5-10.1); CHLORIDE 103 mmol/L (98-107); CO2 25 mmol/L (21-32); GLUCOSE,RANDOM 145 mg/dL (74-106); MAGNESIUM 2.3 mg/dL (1.8-2.4); POTASSIUM 5.2 mmol/L (3.5-5.1); SODIUM 136 mmol/L (136-145)
[2018-03-02 08:14] LABS: CREATININE 2.1 mg/dL (0.7-1.3); PHOSPHOROUS 3.3 mg/dL (2.5-4.9)
[2018-03-02] MEDS ORDERED: RANOLAZINE E.R. 500 MG TABLET (FP) ONE ×2 (10:45→21:36)
[2018-03-02] MEDS ORDERED: PT OWN MED DRAWER 7, Y5N ONE (10:46)
[2018-03-02] MEDS: THIAMINE HCL 100 MG TABLET (FP) PO SCH (10:48)
[2018-03-02] MEDS: RANOLAZINE E.R. 1,000 MG TABLET (FP) PO SCH ×2 (10:48→21:44)
[2018-03-02] MEDS: PANTOPRAZOLE 40 MG TABLET (FP) PO SCH (10:48)
[2018-03-02] MEDS: CLOPIDOGREL BISULFATE 75 MG TABLET (FP) PO SCH (10:49)
[2018-03-02] MEDS: CARVEDILOL 25 MG TABLET (FP) PO SCH ×2 (10:49→21:44)
--- NOTE | 2018-03-02 12:12 | PN ---
Progress Note (short form) - Note Progress Note: Subjective: The patient was seen at the bedside, refusing to speak to me at this time, attempt to use cyracom and patient refused Current Medications Generic Name Dose Route Start Last Admin Trade Name Jeremiah PRN Reason Stop Dose Admin Aspirin 81 mg 02/22/18 22:00 03/01/18 21:43 Asa - PO 81 mg HS [facility] Administration Atorvastatin Calcium 80 mg 02/22/18 22:00 03/01/18 21:38 Lipitor - PO 80 mg HS [facility]INO Administration Carvedilol 25 mg 02/22/18 22:00 03/02/18 10:49 Coreg - PO 25 mg BID [facility] Administration Clopidogrel Bisulfate 75 mg 02/23/18 10:00 03/02/18 10:49 Plavix - PO 75 mg DAILY [facility] Administration Docusate Sodium 100 mg 02/24/18 16:54 02/24/18 18:29 Colace - PO 100 mg Q8H PRN Administration CONSTIPATION Heparin Sodium (Porcine) 5,000 unit 02/22/18 22:00 03/02/18 06:12 Heparin - SQ 5,000 unit TID [facility] Administration Piperacillin Sod/Tazobactam 50 mls @ 100 mls/hr 02/23/18 18:00 03/02/18 10:49 Sod 3.375 gm/ Dextrose IVPB 100 mls/hr Q8H-IV [facility] Administration Protocol Insulin Aspart 1 vial 03/01/18 07:23 03/02/18 11:09 Novolog Vial Sliding Scale - SQ Not Given TIDAC [facility]INO Protocol Pantoprazole Sodium 40 mg 02/26/18 15:45 03/02/18 10:48 Protonix - PO 40 mg DAILY [facility] Administration Ranolazine 1,000 mg 02/22/18 22:00 03/02/18 10:48 Ranexa - PO 1,000 mg BID [facility] Administration Thiamine HCl 100 mg 02/23/18 10:00 03/02/18 10:48 Vitamin B1 - PO 100 mg DAILY [facility] Administration Objective: Vital Signs Period Temp Pulse Resp BP Sys/[place]field Pulse Ox Last 24 Hr 97.2 F-98.4 F 77-88 20-20 103-138/65-87 97 Physical Exam: Patient refused CBCD WBC 9.0 K/mm3 (4.0-10.0) 03/02/18 07:05 RBC 3.27 M/mm3 (4.00-5.60) L 03/02/18 07:05 Hgb 9.6 GM/dL (11.7-16.9) L 03/02/18 07:05 Hct 29.1 % (35.4-49) L 03/02/18 07:05 MCV 89.1 fl (80-96) 03/02/18 07:05 MCHC 33.1 g/dl (32.0-35.9) 03/02/18 07:05 RDW 14.7 % (11.9-15.9) 03/02/18 07:05 Plt Count 251 K/MM3 (134-434) 03/02/18 07:05 MPV 10.2 fl (7.5-11.1) 03/02/18 07:05 CMP Sodium 136 mmol/L (136-145) 03/02/18 07:05 Potassium 5.2 mmol/L (3.5-5.1) H 03/02/18 07:05 Chloride 103 mmol/L (98-107) 03/02/18 07:05 Carbon Dioxide 25 mmol/L (21-32) 03/02/18 07:05 Anion Gap 8 (8-16) 03/02/18 07:05 BUN 23 mg/dL (7-18) H 03/02/18 07:05 Creatinine 2.1 mg/dL (0.7-1.3) H 03/02/18 07:05 Creat Clearance w eGFR 31.38 (>60) 03/02/18 07:05 Random Glucose 145 mg/dL (74-106) H 03/02/18 07:05 Calcium 8.1 mg/dL (8.5-10.1) L 03/02/18 07:05 Total Bilirubin 0.5 mg/dL (0.2-1.0) 02/26/18 06:20 AST 19 U/L (15-37) D 02/26/18 06:20 ALT 28 U/L (12-78) D 02/26/18 06:20 Alkaline Phosphatase 115 U/L (45-117) D 02/26/18 06:20 Total Protein 6.2 g/dl (6.4-8.2) L 02/26/18 06:20 Albumin 2.2 g/dl (3.4-5.0) L 02/26/18 06:20 CARDIAC ENZYMES Creatine Kinase 82 IU/L (39-308) 02/22/18 13:13 Troponin I 0.04 ng/ml (0.00-0.05) D 02/22/18 13:13 Microbiology 02/22/18 11:00 Blood - Peripheral Venous Blood Culture - Final NO GROWTH AFTER 5 DAYS INCUBATION 02/22/18 11:00 Blood - Peripheral Venous Blood Culture - Final NO GROWTH AFTER 5 DAYS INCUBATION 02/22/18 11:00 Toe - Right Hallux Gram Stain - Final 02/22/18 11:00 Toe - Right Hallux Wound Culture - Final Pseudomonas Aeruginosa Klebsiella Pneumoniae Alcaligenes Species Staphylococcus Aureus Enterococcus Faecalis 02/22/18 12:15 Urine - Urine Clean Catch Urine Culture - Final NO GROWTH OBTAINED Assessment: This is a 72 year old male with PMHx of IDDM, HTN, CABG, CVA, hyperlipidemia, dementia, who presented to the ED with right foot first digit gangrene. Plan: 1) Right foot first digit dry gangrene - CTA with runoff: has 70-90% stenosis in right SFA and popliteal artery with collateral circulation going to foot. - Continue Zosyn - Foot x-ray with no evidence of osteo - Patient has stents but it is unclear if MRI compatible. Will not be able to perform MRI at this time - No vascular interventions until cleared by cardiology - Appreciate ID consult - Appreciate surgery consult 2) TREVOR - 2/2 contrast nephropathy - Continue to monitor - Hold all nephrotoxic agents - K 5.2 today, continue to monitor - Appreciate nephrology consult 3) IDDM - BGM ACHS - Novolog sliding scale TIDAC 4) CAD s/p CABG and stenting - Continue ASA - Continue Plavix - Continue Ranexa 5) HTN - Continue Diovan - Continue Aldactone - Continue Coreg 6) Hyperlipidemia - Continue Lipitor 7) Prolonged Qtc 8) F/E/N: - Diabetic/sodium controlled diet - Monitor electrolytes 9) Prophylaxis: - Heparin 5,000u sq tid 10) Dispo: - Requires continued inpatient care CODE STATUS: FULL CODE Visit type - Emergency Visit Emergency Visit: Yes ED Registration Date: 02/22/18 Care time: The patient presented to the Emergency Department on the above date and was hospitalized for further evaluation of their emergent condition. - New Patient This patient is new to me today: No - Critical Care Critical Care patient: No
--- NOTE | 2018-03-02 12:18 | PN ---
Progress Note (short form) - Note Progress Note: Renal follow up for TREVOR Pt seen and examined at the bedside no acute complaints awake and alert family at the bedside denies any sob, chest pain making urine Vital Signs Temperature 97.2 F L 03/02/18 05:30 Pulse Rate 77 03/02/18 05:30 Respiratory Rate 20 03/02/18 05:30 Blood Pressure 103/65 03/02/18 05:30 O2 Sat by Pulse Oximetry (%) 97 03/01/18 20:05 Intake & Output 02/27/18 02/28/18 03/01/18 03/02/18 23:59 23:59 23:59 23:59 Intake Total 1250 500 325 50 Balance 1250 500 325 50 NAD awake and alert soft NT/ND No LE edema CBC, BMP 03/02/18 07:05 03/02/18 07:05 Current Medications Aspirin (Asa -) 81 mg PO HS [facility] Last Admin: 03/01/18 21:43 Dose: 81 mg Atorvastatin Calcium (Lipitor -) 80 mg PO HS [facility] Last Admin: 03/01/18 21:38 Dose: 80 mg Carvedilol (Coreg -) 25 mg PO BID [facility] Last Admin: 03/02/18 10:49 Dose: 25 mg Clopidogrel Bisulfate (Plavix -) 75 mg PO DAILY [facility] Last Admin: 03/02/18 10:49 Dose: 75 mg Docusate Sodium (Colace -) 100 mg PO Q8H PRN PRN Reason: CONSTIPATION Last Admin: 02/24/18 18:29 Dose: 100 mg Heparin Sodium (Porcine) (Heparin -) 5,000 unit SQ TID [facility] Last Admin: 03/02/18 06:12 Dose: 5,000 unit Piperacillin Sod/Tazobactam (Sod 3.375 gm/ Dextrose) 50 mls @ 100 mls/hr IVPB Q8H-IV [facility]; Protocol Last Admin: 03/02/18 10:49 Dose: 100 mls/hr Insulin Aspart (Novolog Vial Sliding Scale -) 1 vial SQ TIDAC [facility]; Protocol Last Admin: 03/02/18 11:09 Dose: Not Given Pantoprazole Sodium (Protonix -) 40 mg PO DAILY [facility] Last Admin: 03/02/18 10:48 Dose: 40 mg Ranolazine (Ranexa -) 1,000 mg PO BID [facility] Last Admin: 03/02/18 10:48 Dose: 1,000 mg Thiamine HCl (Vitamin B1 -) 100 mg PO DAILY [facility] Last Admin: 03/02/18 10:48 Dose: 100 mg 72 year old English speaking male from the [place] with a past medical history of DM, HTN, CAD s/p CABG in 2007, 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 #TREVOR secondary to contrast nephropathy #PVD #CVA Renal function stable mild hyperkalemai noted, trend for now, if uptrends for remains > 5.2 would change diet to low K off ARB for now given TREVOR Continue Abx as per primary pain control w/o NSAIDs Reg Ku DO
--- NOTE | 2018-03-02 13:39 | PN ---
Progress Note, Physician History of Present Illness: Patient is a 72-year-old male ([facility]) with past medical history of IDDM, systolic CHF, HTN, CABG ?2008 after [place], stents ?3, HLD, CVA x 5, PAD , dementia, who presents to the emergency department today with a right toe infection. Patient has dementia and is unable to communicate at baseline. He presents with his family who provides in history of present illness. Family states that they returned from the [facility] today. He was treated at a local hospital in the for a toe infection to the right first toe. States that he received ampicillin and the wound was debrided in the hospital. They state that now they believe the toe was worse. Denies fevers, cough, nausea and vomiting. - Current Medication List Current Medications: Active Medications Aspirin (Asa -) 81 mg PO HS [facility] Last Admin: 03/01/18 21:43 Dose: 81 mg Atorvastatin Calcium (Lipitor -) 80 mg PO HS [facility] Last Admin: 03/01/18 21:38 Dose: 80 mg Carvedilol (Coreg -) 25 mg PO BID [facility] Last Admin: 03/02/18 10:49 Dose: 25 mg Clopidogrel Bisulfate (Plavix -) 75 mg PO DAILY [facility] Last Admin: 03/02/18 10:49 Dose: 75 mg Docusate Sodium (Colace -) 100 mg PO Q8H PRN PRN Reason: CONSTIPATION Last Admin: 02/24/18 18:29 Dose: 100 mg Heparin Sodium (Porcine) (Heparin -) 5,000 unit SQ TID [facility] Last Admin: 03/02/18 06:12 Dose: 5,000 unit Piperacillin Sod/Tazobactam (Sod 3.375 gm/ Dextrose) 50 mls @ 100 mls/hr IVPB Q8H-IV [facility]; Protocol Last Admin: 03/02/18 10:49 Dose: 100 mls/hr Insulin Aspart (Novolog Vial Sliding Scale -) 1 vial SQ TIDAC [facility]; Protocol Last Admin: 03/02/18 11:09 Dose: Not Given Pantoprazole Sodium (Protonix -) 40 mg PO DAILY [facility] Last Admin: 03/02/18 10:48 Dose: 40 mg Ranolazine (Ranexa -) 1,000 mg PO BID [facility] Last Admin: 03/02/18 10:48 Dose: 1,000 mg Thiamine HCl (Vitamin B1 -) 100 mg PO DAILY [facility] Last Admin: 03/02/18 10:48 Dose: 100 mg - Objective Vital Signs: Vital Signs Temperature 97.2 F L 03/02/18 05:30 Pulse Rate 77 03/02/18 05:30 Respiratory Rate 20 03/02/18 05:30 Blood Pressure 103/65 03/02/18 05:30 O2 Sat by Pulse Oximetry (%) 97 03/01/18 20:05 Eyes: Yes: WNL, Conjunctiva Clear, EOM Intact HENT: Yes: WNL, Atraumatic, Normocephalic Neck: Yes: WNL, Supple, Trachea Midline Cardiovascular: Yes: WNL, Regular Rate and Rhythm Respiratory: Yes: WNL, Regular, CTA Bilaterally Gastrointestinal: Yes: WNL, Normal Bowel Sounds Genitourinary: Yes: WNL Musculoskeletal: Yes: WNL Extremities: Yes: WNL Edema: No Integumentary: Yes: WNL Neurological: Yes: Alert ...Motor Strength: WNL Psychiatric: Yes: WNL Labs: CBC, BMP 03/02/18 07:05 03/02/18 07:05 INR, PTT INR 1.19 (0.82-1.09) H 02/22/18 11:08 Assessment/Plan - Problems (1) IDDM (insulin dependent diabetes mellitus) Code(s): E11.9 - TYPE 2 DIABETES MELLITUS WITHOUT COMPLICATIONS; Z79.4 - MEDICAL ECONOMICS CONSULTANT (CURRENT) USE OF INSULIN (2) Necrosis of toe Assessment/Plan: CTA results noted: extensive bilateral arterial disease. See "Coronary artery disease" regarding prior coronary angiogram. Code(s): I96 - GANGR[place], NOT ELSEWHERE CLASSIFIED (3) Chronic systolic (congestive) heart failure Assessment/Plan: Moderately reduced LVEF noted on 2015 ECHO; study 02/25/2018 now shows moderate- severely reduced LVEF, with severe CT and TR, severe pulmonary HTN. Presently on valsartan, carvedilol, Ranexa, and spironolactone. F/u BUN/Cr, Is and Os, daily weight, electrolytes. Code(s): I50.22 - CHRONIC SYSTOLIC (CONGESTIVE) HEART FAILURE (4) Coronary artery disease Assessment/Plan: Pt had CABG in ?2007 after [place], per family. Discussed case again with Dr. Stef Mackey who, in 2012, performed coronary angiogram. Triple-vessel disease was noted; a vein graft to diagonal graft was stented, and pt returned 07/2013 for RCA stent. He was to return for stent of vein graft to diagonal. Moderately severe LV systolic dysfunction on ECHO this admission (in 2012, was mildly reduced LVEF). Will order stress Lexiscan MIBI when pt is stable (presently with acute ARF, which needs to be corrected before pt would be eligible for coronary angiogram, should it be considered necessary). Code(s): I25.10 - ATHSCL HEART DISEASE OF [place] CORONARY ARTERY W/O ANG PCTRS Qualifiers: Coronary Disease-Associated Artery/Lesion type: [place] artery [place] vs. transplanted heart: [place] heart Associated angina: without angina Qualified Code(s): I25.10 - Atherosclerotic heart disease of [place] coronary artery without angina pectoris (5) Dementia Assessment/Plan: see under "CVA" Code(s): F03.90 - UNSPECIFIED DEMENTIA WITHOUT BEHAVIORAL DISTURBANCE (6) S/P CABG (coronary artery bypass graft) Assessment/Plan: see under "coronary artery disease" Code(s): Z95.1 - PRESENCE OF AORTOCORONARY BYPASS GRAFT (7) Vision loss of right eye Code(s): H54.61 - UNQUALIFIED VISUAL LOSS, RIGHT EYE, NORMAL VISION LEFT EYE (8) Hyperlipidemia Assessment/Plan: On atorvastatin 80 mg daily; LDL 76; HDL 30 mg/dL. Code(s): E78.5 - HYPERLIPIDEMIA, UNSPECIFIED (9) CVA (cerebral vascular accident) Assessment/Plan: Family states pt has had five CVAs over the past several years, and believes his "dementia" is due to these ([address] noted multiple cortical infarcts, some new since 2013). f/u with neurologist. Code(s): I63.9 - CEREBRAL INFARCTION, UNSPECIFIED (10) Renal dysfunction Assessment/Plan: f/u with pharmaceutical laboratory technician. Code(s): N28.9 - DISORDER OF KIDNEY AND URETER, UNSPECIFIED
--- NOTE | 2018-03-02 14:47 | PN ---
Progress Note, Physician History of Present Illness: uncooperative otherwise stable - Current Medication List Current Medications: Active Medications Aspirin (Asa -) 81 mg PO HS [facility] Last Admin: 03/01/18 21:43 Dose: 81 mg Atorvastatin Calcium (Lipitor -) 80 mg PO HS [facility] Last Admin: 03/01/18 21:38 Dose: 80 mg Carvedilol (Coreg -) 25 mg PO BID [facility] Last Admin: 03/02/18 10:49 Dose: 25 mg Clopidogrel Bisulfate (Plavix -) 75 mg PO DAILY [facility] Last Admin: 03/02/18 10:49 Dose: 75 mg Docusate Sodium (Colace -) 100 mg PO Q8H PRN PRN Reason: CONSTIPATION Last Admin: 02/24/18 18:29 Dose: 100 mg Heparin Sodium (Porcine) (Heparin -) 5,000 unit SQ TID [facility] Last Admin: 03/02/18 14:26 Dose: 5,000 unit Piperacillin Sod/Tazobactam (Sod 3.375 gm/ Dextrose) 50 mls @ 100 mls/hr IVPB Q8H-IV [facility]; Protocol Last Admin: 03/02/18 10:49 Dose: 100 mls/hr Insulin Aspart (Novolog Vial Sliding Scale -) 1 vial SQ TIDAC [facility]; Protocol Last Admin: 03/02/18 11:09 Dose: Not Given Pantoprazole Sodium (Protonix -) 40 mg PO DAILY [facility] Last Admin: 03/02/18 10:48 Dose: 40 mg Ranolazine (Ranexa -) 1,000 mg PO BID [facility] Last Admin: 03/02/18 10:48 Dose: 1,000 mg Thiamine HCl (Vitamin B1 -) 100 mg PO DAILY [facility] Last Admin: 03/02/18 10:48 Dose: 100 mg - Objective Vital Signs: Vital Signs Temperature 97.2 F L 03/02/18 05:30 Pulse Rate 77 03/02/18 05:30 Respiratory Rate 20 03/02/18 05:30 Blood Pressure 103/65 03/02/18 05:30 O2 Sat by Pulse Oximetry (%) 97 03/01/18 20:05 Constitutional: Yes: No Distress, Anxious Cardiovascular: Yes: S1, S2 Gastrointestinal: Yes: Normal Bowel Sounds, Soft Musculoskeletal: Yes: Other Extremities: Yes: Other Neurological: Yes: Alert, Other Labs: CBC, BMP 03/02/18 07:05 03/02/18 07:05 INR, PTT INR 1.19 (0.82-1.09) H 02/22/18 11:08 Assessment/Plan his is a 72 year old male with PMHx of IDDM, HTN, CABG, CVA, hyperlipidemia, dementia, who presented to the ED with right foot first digit gangrene. 1) Right foot first digit wet gangrene 2) Non-palpable right foot pulses 3) IDDM 4) CAD s/p CABG and stenting 5) HTN 6) Hyperlipidemia plan stop abx will need amputation when ready all results noted will have to decide next step
[2018-03-02] MEDS ORDERED: INSULIN (NOVOLOG) ASPART 100 UNITS/ML 10ML VIAL ONE (21:36)
[2018-03-02] MEDS: ATORVASTATIN CA 80 MG TABLET (FP) PO SCH (21:45)
[2018-03-02] MEDS: ASPIRIN 81 MG CHEWABLE TABLETS PO SCH (21:45)
[2018-03-03] MEDS: HEPARIN NA (PORCINE) 5,000 UNITS/ML 1ML VIAL SQ SCH ×3 (06:30→21:37)
[2018-03-03] MEDS: INSULIN SLIDING SCALE (NOVOLOG) 1 VIAL SQ SCH ×3 (06:33→17:33)
[2018-03-03 08:49] LABS: BASO % 0.9 % (0-2.0); EOS % 2.7 % (0-4.5); HEMATOCRIT 30.4 % (35.4-49); HEMOGLOBIN 10.1 GM/dL (11.7-16.9); LYMPH % 6.7 % (8-40); MCH 29.8 pg (25.7-33.7); MCHC 33.1 g/dl (32.0-35.9); MEAN PLT VOLUME 9.7 fl (7.5-11.1); MONO % 9.2 % (3.8-10.2); NEUT % 80.5 % (42.8-82.8); PLATELET COUNT 284 K/MM3 (134-434); RBC 3.38 M/mm3 (4.00-5.60); RDW 14.6 % (11.9-15.9); WHITE BLOOD COUNT 10.8 K/mm3 (4.0-10.0)
[2018-03-03 09:27] LABS: ANION GAP 9 (8-16); BLOOD UREA NITROGEN 29 mg/dL (7-18); CALCIUM 8.6 mg/dL (8.5-10.1); CHLORIDE 104 mmol/L (98-107); CO2 25 mmol/L (21-32); GLUCOSE,RANDOM 153 mg/dL (74-106); MAGNESIUM 2.3 mg/dL (1.8-2.4); PHOSPHOROUS 2.8 mg/dL (2.5-4.9); POTASSIUM 5.5 mmol/L (3.5-5.1); SODIUM 138 mmol/L (136-145)
--- NOTE | 2018-03-03 10:12 | PN ---
Progress Note (short form) - Note Progress Note: Subjective: The patient was seen at the bedside, he does not want to speak to me today and started to kick when I came over to him Current Medications Generic Name Dose Route Start Last Admin Trade Name Jeremiah PRN Reason Stop Dose Admin Aspirin 81 mg 02/22/18 22:00 03/02/18 21:45 Asa - PO 81 mg HS [facility] Administration Atorvastatin Calcium 80 mg 02/22/18 22:00 03/02/18 21:45 Lipitor - PO 80 mg HS [facility] Administration Carvedilol 25 mg 02/22/18 22:00 03/02/18 21:44 Coreg - PO 25 mg BID [facility] Administration Clopidogrel Bisulfate 75 mg 02/23/18 10:00 03/02/18 10:49 Plavix - PO 75 mg DAILY [facility] Administration Docusate Sodium 100 mg 02/24/18 16:54 02/24/18 18:29 Colace - PO 100 mg Q8H PRN Administration CONSTIPATION Heparin Sodium (Porcine) 5,000 unit 02/22/18 22:00 03/03/18 06:30 Heparin - SQ 5,000 unit TID [facility] Administration Insulin Aspart 1 vial 03/01/18 07:23 03/03/18 06:33 Novolog Vial Sliding Scale - SQ 2 units TIDAC [facility] Administration Protocol Pantoprazole Sodium 40 mg 02/26/18 15:45 03/02/18 10:48 Protonix - PO 40 mg DAILY [facility] Administration Ranolazine 1,000 mg 02/22/18 22:00 03/02/18 21:44 Ranexa - PO 1,000 mg BID [facility] Administration Thiamine HCl 100 mg 02/23/18 10:00 03/02/18 10:48 Vitamin B1 - PO 100 mg DAILY [facility] Administration Objective: Vital Signs Period Temp Pulse Resp BP Sys/[place] Pulse Ox Last 24 Hr 9.9 F-98.7 F 77-94 20-21 116-128/65-85 97 Physical Exam: Patient refused CBCD WBC 10.8 K/mm3 (4.0-10.0) H 03/03/18 08:30 RBC 3.38 M/mm3 (4.00-5.60) L 03/03/18 08:30 Hgb 10.1 GM/dL (11.7-16.9) L 03/03/18 08:30 Hct 30.4 % (35.4-49) L 03/03/18 08:30 MCV 90.0 fl (80-96) 03/03/18 08:30 MCHC 33.1 g/dl (32.0-35.9) 03/03/18 08:30 RDW 14.6 % (11.9-15.9) 03/03/18 08:30 Plt Count 284 K/MM3 (134-434) 03/03/18 08:30 MPV 9.7 fl (7.5-11.1) 03/03/18 08:30 CMP Sodium 138 mmol/L (136-145) 03/03/18 08:30 Potassium 5.5 mmol/L (3.5-5.1) H 03/03/18 08:30 Chloride 104 mmol/L (98-107) 03/03/18 08:30 Carbon Dioxide 25 mmol/L (21-32) 03/03/18 08:30 Anion Gap 9 (8-16) 03/03/18 08:30 BUN 29 mg/dL (7-18) H 03/03/18 08:30 Creatinine 2.0 mg/dL (0.7-1.3) H 03/03/18 08:30 Creat Clearance w eGFR 33.20 (>60) 03/03/18 08:30 Random Glucose 153 mg/dL (74-106) H 03/03/18 08:30 Calcium 8.6 mg/dL (8.5-10.1) 03/03/18 08:30 Total Bilirubin 0.5 mg/dL (0.2-1.0) 02/26/18 06:20 AST 19 U/L (15-37) D 02/26/18 06:20 ALT 28 U/L (12-78) D 02/26/18 06:20 Alkaline Phosphatase 115 U/L (45-117) D 02/26/18 06:20 Total Protein 6.2 g/dl (6.4-8.2) L 02/26/18 06:20 Albumin 2.2 g/dl (3.4-5.0) L 02/26/18 06:20 CARDIAC ENZYMES Creatine Kinase 82 IU/L (39-308) 02/22/18 13:13 Troponin I 0.04 ng/ml (0.00-0.05) D 02/22/18 13:13 Microbiology 02/22/18 11:00 Blood - Peripheral Venous Blood Culture - Final NO GROWTH AFTER 5 DAYS INCUBATION 02/22/18 11:00 Blood - Peripheral Venous Blood Culture - Final NO GROWTH AFTER 5 DAYS INCUBATION 02/22/18 11:00 Toe - Right Hallux Gram Stain - Final 02/22/18 11:00 Toe - Right Hallux Wound Culture - Final Pseudomonas Aeruginosa Klebsiella Pneumoniae Alcaligenes Species Staphylococcus Aureus Enterococcus Faecalis 02/22/18 12:15 Urine - Urine Clean Catch Urine Culture - Final NO GROWTH OBTAINED Assessment: This is a 72 year old male with PMHx of IDDM, HTN, CABG, CVA, hyperlipidemia, dementia, who presented to the ED with right foot first digit gangrene. Plan: 1) Right foot first digit dry gangrene - CTA with runoff: has 70-90% stenosis in right SFA and popliteal artery with collateral circulation going to foot. - Foot x-ray with no evidence of osteo - Patient has stents but it is unclear if MRI compatible. Will not be able to perform MRI at this time - No vascular interventions until cleared by cardiology. Cardiology clearance once ARF resolved. Discussed with Dr. Ku, can discharge the patient as it may take about 7 days for kidney function to normalize - Appreciate ID consult - Appreciate surgery consult 2) TREVOR - 2/2 contrast nephropathy - Continue to monitor - Hold all nephrotoxic agents - K 5.5 today, will give Kayexalate - Appreciate nephrology consult 3) IDDM - BGM ACHS - Novolog sliding scale TIDAC 4) CAD s/p CABG and stenting - Continue ASA - Continue Plavix - Continue Ranexa 5) HTN - Continue Diovan - Continue Aldactone - Continue Coreg 6) Hyperlipidemia - Continue Lipitor 7) Prolonged Qtc 8) F/E/N: - Diabetic/sodium controlled diet - Monitor electrolytes 9) Prophylaxis: - Heparin 5,000u sq tid 10) Dispo: - Requires continued inpatient care CODE STATUS: FULL CODE
[2018-03-03] MEDS ORDERED: SODIUM POLYSTYRENE SULFONATE 15 GM/60 ML BOTTLE PO ONE (10:15)
[2018-03-03] MEDS ORDERED: RANOLAZINE E.R. 500 MG TABLET (FP) ONE ×3 (11:17→22:18)
[2018-03-03] MEDS ORDERED: PT OWN MED DRAWER 7, Y5N ONE ×2 (11:18→20:38)
[2018-03-03] MEDS ORDERED: INSULIN (NOVOLOG) ASPART 100 UNITS/ML 10ML VIAL ONE (11:41)
[2018-03-03] MEDS: CARVEDILOL 25 MG TABLET (FP) PO SCH ×2 (11:43→21:37)
[2018-03-03] MEDS: CLOPIDOGREL BISULFATE 75 MG TABLET (FP) PO SCH (11:43)
[2018-03-03] MEDS: PANTOPRAZOLE 40 MG TABLET (FP) PO SCH (11:44)
[2018-03-03] MEDS: THIAMINE HCL 100 MG TABLET (FP) PO SCH (11:44)
[2018-03-03] MEDS: RANOLAZINE E.R. 1,000 MG TABLET (FP) PO SCH ×2 (11:44→22:19)
--- NOTE | 2018-03-03 13:28 | PN ---
Progress Note (short form) - Note Progress Note: Renal follow up for TREVOR Pt seen and examined at the bedside no acute complaints Vital Signs Temperature 98.0 F 03/03/18 05:58 Pulse Rate 94 H 03/03/18 05:58 Respiratory Rate 20 03/03/18 05:58 Blood Pressure 120/85 03/03/18 05:58 O2 Sat by Pulse Oximetry (%) 97 03/03/18 09:00 Intake & Output 02/28/18 03/01/18 03/02/18 03/03/18 23:59 23:59 23:59 23:59 Intake Total 500 325 500 Balance 500 325 500 NAD awake and alert soft NT/ND No LE edema CBC, BMP CBC, BMP 03/03/18 08:30 03/03/18 08:30 Current Medications Aspirin (Asa -) 81 mg PO HS [facility] Last Admin: 03/02/18 21:45 Dose: 81 mg Atorvastatin Calcium (Lipitor -) 80 mg PO HS [facility] Last Admin: 03/02/18 21:45 Dose: 80 mg Carvedilol (Coreg -) 25 mg PO BID [facility] Last Admin: 03/03/18 11:43 Dose: 25 mg Clopidogrel Bisulfate (Plavix -) 75 mg PO DAILY [facility] Last Admin: 03/03/18 11:43 Dose: 75 mg Docusate Sodium (Colace -) 100 mg PO Q8H PRN PRN Reason: CONSTIPATION Last Admin: 02/24/18 18:29 Dose: 100 mg Heparin Sodium (Porcine) (Heparin -) 5,000 unit SQ TID [facility] Last Admin: 03/03/18 06:30 Dose: 5,000 unit Insulin Aspart (Novolog Vial Sliding Scale -) 1 vial SQ TIDAC [facility]; Protocol Last Admin: 03/03/18 11:42 Dose: 4 units Pantoprazole Sodium (Protonix -) 40 mg PO DAILY [facility] Last Admin: 03/03/18 11:44 Dose: 40 mg Ranolazine (Ranexa -) 1,000 mg PO BID [facility] Last Admin: 03/03/18 11:44 Dose: 1,000 mg Thiamine HCl (Vitamin B1 -) 100 mg PO DAILY [facility] Last Admin: 03/03/18 11:44 Dose: 100 mg 72 year old Citizen Of [place] speaking male from [place] with a past medical history of DM, HTN, CAD s/p CABG in 2007, 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 #TREVOR secondary to contrast nephropathy #PVD #CVA Renal function stable, pt is non-oliguiric agree with changing diet to low K in setting of TREVOR and mild hyperkalemia kayexalate to be given for hyperkalemia today as well trend renal function and electrolytes would try to avoid further IV contrast exposure until Cr reaches baseline Reg Ku DO
--- NOTE | 2018-03-03 14:31 | PN ---
Progress Note, Physician History of Present Illness: uncooperative otherwise stable - Current Medication List Current Medications: Active Medications Aspirin (Asa -) 81 mg PO HS [facility] Last Admin: 03/02/18 21:45 Dose: 81 mg Atorvastatin Calcium (Lipitor -) 80 mg PO HS [facility] Last Admin: 03/02/18 21:45 Dose: 80 mg Carvedilol (Coreg -) 25 mg PO BID [facility] Last Admin: 03/03/18 11:43 Dose: 25 mg Clopidogrel Bisulfate (Plavix -) 75 mg PO DAILY [facility] Last Admin: 03/03/18 11:43 Dose: 75 mg Docusate Sodium (Colace -) 100 mg PO Q8H PRN PRN Reason: CONSTIPATION Last Admin: 02/24/18 18:29 Dose: 100 mg Heparin Sodium (Porcine) (Heparin -) 5,000 unit SQ TID [facility] Last Admin: 03/03/18 06:30 Dose: 5,000 unit Insulin Aspart (Novolog Vial Sliding Scale -) 1 vial SQ TIDAC [facility]; Protocol Last Admin: 03/03/18 11:42 Dose: 4 units Pantoprazole Sodium (Protonix -) 40 mg PO DAILY [facility] Last Admin: 03/03/18 11:44 Dose: 40 mg Ranolazine (Ranexa -) 1,000 mg PO BID [facility] Last Admin: 03/03/18 11:44 Dose: 1,000 mg Thiamine HCl (Vitamin B1 -) 100 mg PO DAILY [facility] Last Admin: 03/03/18 11:44 Dose: 100 mg - Objective Vital Signs: Vital Signs Temperature 98.0 F 03/03/18 05:58 Pulse Rate 94 H 03/03/18 05:58 Respiratory Rate 20 03/03/18 05:58 Blood Pressure 120/85 03/03/18 05:58 O2 Sat by Pulse Oximetry (%) 97 03/03/18 09:00 Constitutional: Yes: No Distress, Calm Cardiovascular: Yes: S1, S2 Respiratory: Yes: Regular, CTA Bilaterally Musculoskeletal: Yes: Other Extremities: Yes: Other Neurological: Yes: Alert Labs: CBC, BMP 03/03/18 08:30 03/03/18 08:30 INR, PTT INR 1.19 (0.82-1.09) H 02/22/18 11:08 Assessment/Plan his is a 72 year old male with PMHx of IDDM, HTN, CABG, CVA, hyperlipidemia, dementia, who presented to the ED with right foot first digit gangrene. 1) Right foot first digit wet gangrene 2) Non-palpable right foot pulses 3) IDDM 4) CAD s/p CABG and stenting 5) HTN 6) Hyperlipidemia plan continue current mgmt will need amputation when ready all results noted will have to decide next step
--- NOTE | 2018-03-03 17:35 | CON.PSY ---
Psychiatry Consult Chief Complaint: Patient with a history of DEmentia, spoke to nfamily, . Patient is allan at home. responds poorly to some one nit telling him what theyb are going to mdo to him. Symptoms: reports: Memory Impairment, Irritability - Previous Psychiatric Treatment Outpatient: None Inpatient: None - Previous Substance Abuse Treatment Outpatient: None Inpatient: None - Current Medications Current Medications: Active Medications Aspirin (Asa -) 81 mg PO [facility] Last Admin: 03/02/18 21:45 Dose: 81 mg Atorvastatin Calcium (Lipitor -) 80 mg PO HS [facility] Last Admin: 03/02/18 21:45 Dose: 80 mg Carvedilol (Coreg -) 25 mg PO BID [facility] Last Admin: 03/03/18 11:43 Dose: 25 mg Clopidogrel Bisulfate (Plavix -) 75 mg PO DAILY [facility] Last Admin: 03/03/18 11:43 Dose: 75 mg Docusate Sodium (Colace -) 100 mg PO Q8H PRN PRN Reason: CONSTIPATION Last Admin: 02/24/18 18:29 Dose: 100 mg Heparin Sodium (Porcine) (Heparin -) 5,000 unit SQ TID [facility] Last Admin: 03/03/18 14:33 Dose: Not Given Insulin Aspart (Novolog Vial Sliding Scale -) 1 vial SQ TIDAC [facility]; Protocol Last Admin: 03/03/18 11:42 Dose: 4 units Pantoprazole Sodium (Protonix -) 40 mg PO DAILY [facility] Last Admin: 03/03/18 11:44 Dose: 40 mg Ranolazine (Ranexa -) 1,000 mg PO BID [facility] Last Admin: 03/03/18 11:44 Dose: 1,000 mg Thiamine HCl (Vitamin B1 -) 100 mg PO DAILY [facility] Last Admin: 03/03/18 11:44 Dose: 100 mg - Allergies Allergies: Allergies Allergy/AdvReac Type Severity Reaction Status Date / Time No Known Allergies Allergy Verified 02/22/18 10:15 - Current Living Status Usual Living Arrangement: With Spouse - Current Mental Status Evaluation Appearance: Well Groomed Attitude: Cooperative - Affect Affect: Constrictive Appropriateness: Appropriate to Content - Mood Mood: Irritable - Speech/Language Expressive: Delayed - Psychomotor Activity Psychomotor Activity: Slowed - Thought Process Thought Process: Intact, Circumstantial - Thought Content Hallucinations: Absent Delusions: Absent - Self Perception Self Perception: Depersonalization - Cognition Attention: Alert Orientation: Person Memory, Immediate Recall: Intact Memory, Short Term: 1/3 Memory, Remote with Promptin/3 - Concentration Serial Sevens Intact: No Simple Calculations Intact: No - Abstraction Proverb Interpretation: Impaired Judgement: Minimally Impaired - Insight Insight: Impaired - Impulse Control Impulse Control: Minimally Impaired - Suicidal Ideation Suicidal Ideation: No - Homicidal Ideation Homicidal Ideation: No Assessment/Plan 1) No9 need for standing psych meds. 2) use ativan prn basis.
[2018-03-03] MEDS: ASPIRIN 81 MG CHEWABLE TABLETS PO SCH (21:37)
[2018-03-03] MEDS: ATORVASTATIN CA 80 MG TABLET (FP) PO SCH (21:37)
--- NOTE | 2018-03-03 22:39 | PN ---
Progress Note, Physician Chief Complaint: Pt being given "soup" by his family. Not talkative today. History of Present Illness: Patient is a 72-year-old male (. [facility]) with past medical history of IDDM, systolic CHF, HTN, CABG ?2008 after [place], stents ?3, HLD, CVA x 5, PAD , dementia, who presents to the emergency department today with a right toe infection. Patient has dementia and is unable to communicate at baseline. He presents with his family who provides in history of present illness. Family states that they returned from the [facility] today. He was treated at a local hospital in the for a toe infection to the right first toe. States that he received ampicillin and the wound was debrided in the hospital. They state that now they believe the toe was worse. Denies fevers, cough, nausea and vomiting. - Current Medication List Current Medications: Active Medications Aspirin (Asa -) 81 mg PO HS [facility] Last Admin: 03/03/18 21:37 Dose: 81 mg Atorvastatin Calcium (Lipitor -) 80 mg PO [facility] Last Admin: 03/03/18 21:37 Dose: 80 mg Carvedilol (Coreg -) 25 mg PO BID [facility] Last Admin: 03/03/18 21:37 Dose: 25 mg Clopidogrel Bisulfate (Plavix -) 75 mg PO DAILY [facility] Last Admin: 03/03/18 11:43 Dose: 75 mg Docusate Sodium (Colace -) 100 mg PO Q8H PRN PRN Reason: CONSTIPATION Last Admin: 02/24/18 18:29 Dose: 100 mg Heparin Sodium (Porcine) (Heparin -) 5,000 unit SQ TID [facility] Last Admin: 03/03/18 21:37 Dose: 5,000 unit Insulin Aspart (Novolog Vial Sliding Scale -) 1 vial SQ TIDAC [facility]; Protocol Last Admin: 03/03/18 17:33 Dose: 6 units Pantoprazole Sodium (Protonix -) 40 mg PO DAILY [facility] Last Admin: 03/03/18 11:44 Dose: 40 mg Ranolazine (Ranexa -) 1,000 mg PO BID [facility] Last Admin: 03/03/18 22:19 Dose: 1,000 mg Thiamine HCl (Vitamin B1 -) 100 mg PO DAILY [facility] Last Admin: 03/03/18 11:44 Dose: 100 mg - Objective Vital Signs: Vital Signs Temperature 98.0 F 03/03/18 05:58 Pulse Rate 95 H 03/03/18 17:00 Respiratory Rate 19 03/03/18 17:00 Blood Pressure 144/81 03/03/18 17:00 O2 Sat by Pulse Oximetry (%) 97 03/03/18 20:22 Constitutional: Yes: Anxious Eyes: Yes: WNL HENT: Yes: WNL Neck: Yes: Decreased ROM Cardiovascular: Yes: Regular Rate and Rhythm, S1, S2 Respiratory: Yes: Regular Genitourinary: No: Anuria Musculoskeletal: Yes: Muscle Weakness Extremities: Yes: Cool Edema: No Peripheral Pulses WNL: No Peripheral Pulses: Left Doralis Pedis: 1+, Right Dorsalis Pedis: 1+ Integumentary: Yes: Venous Stasis Changes Neurological: Yes: Weakness Psychiatric: Yes: Other Labs: CBC, BMP 03/03/18 08:30 03/03/18 08:30 INR, PTT INR 1.19 (0.82-1.09) H 02/22/18 11:08 - ....Imaging Ultrasound: Pending (carotid artery US) Problem List - Problems (1) IDDM (insulin dependent diabetes mellitus) Code(s): E11.9 - TYPE 2 DIABETES MELLITUS WITHOUT COMPLICATIONS; Z79.4 - [place] (CURRENT) USE OF INSULIN (2) Necrosis of toe Assessment/Plan: CTA results noted: extensive bilateral arterial disease. See "Coronary artery disease" regarding prior coronary angiogram. Await improvement of renal function prior to proceeding with coronary artery evaluation. Code(s): I96 - [place], NOT ELSEWHERE CLASSIFIED (3) Chronic systolic (congestive) heart failure Assessment/Plan: Moderately reduced LVEF noted on 2015 ECHO; study 02/25/2018 now shows moderate- severely reduced LVEF, with severe [place] and TR, severe pulmonary HTN. Presently on valsartan, carvedilol, Ranexa, and spironolactone. F/u BUN/Cr, Is and Os, daily weight, electrolytes. Code(s): I50.22 - CHRONIC SYSTOLIC (CONGESTIVE) HEART FAILURE (4) Coronary artery disease Assessment/Plan: Pt had CABG in ?2007 after [place], per family. Discussed case again with Dr. Stef Mackey who, in 2012, performed coronary angiogram. Triple-vessel disease was noted; a vein graft to diagonal graft was stented, and pt returned 07/2013 for RCA stent. He was to return for stent of vein graft to diagonal. Moderately severe LV systolic dysfunction on ECHO this admission (in 2012, was mildly reduced LVEF). Will order stress Lexiscan MIBI when pt is stable (presently with acute ARF, which needs to be corrected before pt would be eligible for coronary angiogram, should it be considered necessary). Code(s): I25.10 - ATHSCL HEART DISEASE OF [place] CORONARY ARTERY W/O ANG PCTRS Qualifiers: Coronary Disease-Associated Artery/Lesion type: [place] artery [place] vs. transplanted heart: [place] heart Associated angina: without angina Qualified Code(s): I25.10 - Atherosclerotic heart disease of [place] coronary artery without angina pectoris (5) Dementia Assessment/Plan: see under "CVA" Code(s): F03.90 - UNSPECIFIED DEMENTIA WITHOUT BEHAVIORAL DISTURBANCE (6) S/P CABG (coronary artery bypass graft) Assessment/Plan: see under "coronary artery disease" Code(s): Z95.1 - PRESENCE OF AORTOCORONARY BYPASS GRAFT (7) Vision loss of right eye Code(s): H54.61 - UNQUALIFIED VISUAL LOSS, RIGHT EYE, NORMAL VISION LEFT EYE (8) Hyperlipidemia Assessment/Plan: On atorvastatin 80 mg daily; LDL 76; HDL 30 mg/dL. Code(s): E78.5 - HYPERLIPIDEMIA, UNSPECIFIED (9) CVA (cerebral vascular accident) Assessment/Plan: Family states pt has had five CVAs over the past several years, and believes his "dementia" is due to these ([address] noted multiple cortical infarcts, some new since 2013). f/u with neurologist. Code(s): I63.9 - CEREBRAL INFARCTION, UNSPECIFIED (10) Renal dysfunction Assessment/Plan: Improvement in renal function. f/u with credit review manager. From a cardiac standpoint, pt will followed closely with coronary artery evaluation scheduled when renal function has substantially improved, perhaps as early as next week. Code(s): N28.9 - DISORDER OF KIDNEY AND URETER, UNSPECIFIED
[2018-03-04 01:15] VITALS: BMI 22.8
[2018-03-04] MEDS: HEPARIN NA (PORCINE) 5,000 UNITS/ML 1ML VIAL SQ SCH ×3 (06:00→21:43)
[2018-03-04] MEDS: INSULIN SLIDING SCALE (NOVOLOG) 1 VIAL SQ SCH ×3 (06:39→16:37)
[2018-03-04 07:19] LABS: BASO % 0.9 % (0-2.0); EOS % 4.4 % (0-4.5); HEMOGLOBIN 9.9 GM/dL (11.7-16.9); LYMPH % 7.9 % (8-40); MCH 29.7 pg (25.7-33.7); MEAN CELL VOLUME 90.1 fl (80-96); MEAN PLT VOLUME 9.3 fl (7.5-11.1); MONO % 10.9 % (3.8-10.2); NEUT % 75.9 % (42.8-82.8); PLATELET COUNT 288 K/MM3 (134-434); RBC 3.33 M/mm3 (4.00-5.60); WHITE BLOOD COUNT 10.1 K/mm3 (4.0-10.0)
[2018-03-04 07:54] LABS: ANION GAP 10 (8-16); BLOOD UREA NITROGEN 29 mg/dL (7-18); CALCIUM 8.4 mg/dL (8.5-10.1); CHLORIDE 104 mmol/L (98-107); CO2 25 mmol/L (21-32); GLUCOSE,RANDOM 269 mg/dL (74-106); MAGNESIUM 2.1 mg/dL (1.8-2.4); POTASSIUM 4.8 mmol/L (3.5-5.1); SODIUM 139 mmol/L (136-145)
[2018-03-04 07:56] LABS: CREATININE 1.8 mg/dL (0.7-1.3); PHOSPHOROUS 3.1 mg/dL (2.5-4.9)
--- NOTE | 2018-03-04 09:12 | PN ---
Progress Note, Physician History of Present Illness: Patient is a 72-year-old male ([facility]) with past medical history of IDDM, systolic CHF, HTN, CABG ?2008 after [place], stents ?3, HLD, CVA x 5, PAD , dementia, who presents to the emergency department today with a right toe infection. Patient has dementia and is unable to communicate at baseline. He presents with his family who provides in history of present illness. Family states that they returned from the [facility] today. He was treated at a local hospital in the for a toe infection to the right first toe. States that he received ampicillin and the wound was debrided in the hospital. They state that now they believe the toe was worse. Denies fevers, cough, nausea and vomiting. - Current Medication List Current Medications: Active Medications Aspirin (Asa -) 81 mg PO HS [facility] Last Admin: 03/03/18 21:37 Dose: 81 mg Atorvastatin Calcium (Lipitor -) 80 mg PO [facility] Last Admin: 03/03/18 21:37 Dose: 80 mg Carvedilol (Coreg -) 25 mg PO BID [facility] Last Admin: 03/03/18 21:37 Dose: 25 mg Clopidogrel Bisulfate (Plavix -) 75 mg PO DAILY [facility] Last Admin: 03/03/18 11:43 Dose: 75 mg Docusate Sodium (Colace -) 100 mg PO Q8H PRN PRN Reason: CONSTIPATION Last Admin: 02/24/18 18:29 Dose: 100 mg Heparin Sodium (Porcine) (Heparin -) 5,000 unit SQ TID [facility] Last Admin: 03/04/18 06:00 Dose: 5,000 unit Insulin Aspart (Novolog Vial Sliding Scale -) 1 vial SQ TIDAC [facility]; Protocol Last Admin: 03/04/18 06:39 Dose: 8 units Pantoprazole Sodium (Protonix -) 40 mg PO DAILY [facility] Last Admin: 03/03/18 11:44 Dose: 40 mg Ranolazine (Ranexa -) 1,000 mg PO BID [facility] Last Admin: 03/03/18 22:19 Dose: 1,000 mg Thiamine HCl (Vitamin B1 -) 100 mg PO DAILY [facility] Last Admin: 03/03/18 11:44 Dose: 100 mg - Objective Vital Signs: Vital Signs Temperature 98.5 F 03/04/18 06:00 Pulse Rate 92 H 03/04/18 06:00 Respiratory Rate 18 03/04/18 06:00 Blood Pressure 157/90 03/04/18 06:00 O2 Sat by Pulse Oximetry (%) 97 03/03/18 20:22 Eyes: Yes: WNL, Conjunctiva Clear, EOM Intact HENT: Yes: WNL, Atraumatic, Normocephalic Neck: Yes: WNL, Supple, Trachea Midline Cardiovascular: Yes: WNL, Regular Rate and Rhythm Respiratory: Yes: WNL, Regular, CTA Bilaterally Gastrointestinal: Yes: WNL, Normal Bowel Sounds Genitourinary: Yes: WNL Musculoskeletal: Yes: WNL Extremities: Yes: WNL Edema: No Integumentary: Yes: WNL Neurological: Yes: WNL, Alert, Oriented ...Motor Strength: WNL Psychiatric: Yes: WNL Labs: CBC, BMP 03/04/18 06:30 03/04/18 06:30 INR, PTT INR 1.19 (0.82-1.09) H 02/22/18 11:08 Assessment/Plan - Problems (1) IDDM (insulin dependent diabetes mellitus) Code(s): E11.9 - TYPE 2 DIABETES MELLITUS WITHOUT COMPLICATIONS; Z79.4 - [place] HOME (CURRENT) USE OF INSULIN (2) Necrosis of toe Assessment/Plan: CTA results noted: extensive bilateral arterial disease. See "Coronary artery disease" regarding prior coronary angiogram. Await improvement of renal function prior to proceeding with coronary artery evaluation. Code(s): I96 - [place], NOT ELSEWHERE CLASSIFIED (3) Chronic systolic (congestive) heart failure Assessment/Plan: Moderately reduced LVEF noted on 2015 ECHO; study 02/25/2018 now shows moderate- severely reduced LVEF, with severe [place] and TR, severe pulmonary HTN. Presently on valsartan, carvedilol, Ranexa, and spironolactone. F/u BUN/Cr, Is and Os, daily weight, electrolytes. Code(s): I50.22 - CHRONIC SYSTOLIC (CONGESTIVE) HEART FAILURE (4) Coronary artery disease Assessment/Plan: Pt had CABG in ?2007 after [place], per family. Discussed case again with Dr. Stef Mackey who, in 2012, performed coronary angiogram. Triple-vessel disease was noted; a vein graft to diagonal graft was stented, and pt returned 07/2013 for RCA stent. He was to return for stent of vein graft to [place]. Moderately severe LV systolic dysfunction on ECHO this admission (in 2012, was mildly reduced LVEF). Will order stress Lexiscan MIBI when pt is stable (presently with acute ARF, which needs to be corrected before pt would be eligible for coronary angiogram, should it be considered necessary). Code(s): I25.10 - ATHSCL HEART DISEASE OF [place] CORONARY ARTERY W/O ANG PCTRS Qualifiers: Coronary Disease-Associated Artery/Lesion type: [place] artery [place] vs. transplanted heart: [place] heart Associated angina: without angina Qualified Code(s): I25.10 - Atherosclerotic heart disease of [place] coronary artery without angina pectoris (5) Dementia Assessment/Plan: see under "CVA" Code(s): F03.90 - UNSPECIFIED DEMENTIA WITHOUT BEHAVIORAL DISTURBANCE (6) S/P CABG (coronary artery bypass graft) Assessment/Plan: see under "coronary artery disease" Code(s): Z95.1 - PRESENCE OF AORTOCORONARY BYPASS GRAFT (7) Vision loss of right eye Code(s): H54.61 - UNQUALIFIED VISUAL LOSS, RIGHT EYE, NORMAL VISION LEFT EYE (8) Hyperlipidemia Assessment/Plan: On atorvastatin 80 mg daily; LDL 76; HDL 30 mg/dL. Code(s): E78.5 - HYPERLIPIDEMIA, UNSPECIFIED (9) CVA (cerebral vascular accident) Assessment/Plan: Family states pt has had five CVAs over the past several years, and believes his "dementia" is due to these ([address] noted multiple cortical infarcts, some new since 2014). f/u with neurologist. Code(s): I63.9 - CEREBRAL INFARCTION, UNSPECIFIED (10) Renal dysfunction Assessment/Plan: Improvement in renal function. f/u with reducing salon attendant. From a cardiac standpoint, pt will followed closely with coronary artery evaluation scheduled when renal function has substantially improved, perhaps as early as next week. Code(s): N28.9 - DISORDER OF KIDNEY AND URETER, UNSPECIFIED
[2018-03-04] MEDS ORDERED: RANOLAZINE E.R. 500 MG TABLET (FP) ONE ×2 (09:55→21:40)
[2018-03-04] MEDS: THIAMINE HCL 100 MG TABLET (FP) PO SCH (09:59)
[2018-03-04] MEDS: PANTOPRAZOLE 40 MG TABLET (FP) PO SCH (09:59)
[2018-03-04] MEDS: CARVEDILOL 25 MG TABLET (FP) PO SCH ×2 (10:00→21:43)
[2018-03-04] MEDS: RANOLAZINE E.R. 1,000 MG TABLET (FP) PO SCH ×3 (10:00→23:15)
[2018-03-04] MEDS: CLOPIDOGREL BISULFATE 75 MG TABLET (FP) PO SCH (10:00)
--- NOTE | 2018-03-04 12:16 | PN ---
Progress Note (short form) - Note Progress Note: Subjective: The patient was seen at the bedside, he was pleasant today, non- combative. Did not answer any of my questions Awaiting discussion with daughter to send patient to [facility] Current Medications Generic Name Dose Route Start Last Admin Trade Name Jeremiah PRN Reason Stop Dose Admin Aspirin 81 mg 02/22/18 22:00 03/03/18 21:37 Asa - PO 81 mg HS [facility] Administration Atorvastatin Calcium 80 mg 02/22/18 22:00 03/03/18 21:37 Lipitor - PO 80 mg HS [facility] Administration Carvedilol 25 mg 02/22/18 22:00 03/04/18 10:00 Coreg - PO 25 mg BID [facility] Administration Clopidogrel Bisulfate 75 mg 02/23/18 10:00 03/04/18 10:00 Plavix - PO 75 mg DAILY [facility] Administration Docusate Sodium 100 mg 02/24/18 16:54 02/24/18 18:29 Colace - PO 100 mg Q8H PRN Administration CONSTIPATION Heparin Sodium (Porcine) 5,000 unit 02/22/18 22:00 03/04/18 06:00 Heparin - SQ 5,000 unit TID [facility] Administration Insulin Aspart 1 vial 03/01/18 07:23 03/04/18 11:40 Novolog Vial Sliding Scale - SQ 4 units TIDAC [facility] Administration Protocol Pantoprazole Sodium 40 mg 02/26/18 15:45 03/04/18 09:59 Protonix - PO 40 mg DAILY [facility] Administration Ranolazine 1,000 mg 02/22/18 22:00 03/04/18 10:00 Ranexa - PO 1,000 mg BID [facility] Administration Thiamine HCl 100 mg 02/23/18 10:00 03/04/18 09:59 Vitamin B1 - PO 100 mg DAILY [facility] Administration Objective: Vital Signs Period Temp Pulse Resp BP Sys/[place] Pulse Ox Last 24 Hr 98.5 F 82-95 18-20 125-157/70-90 97 Physical Exam: General: NAD, non-conversant Lungs: CTA bilaterally Heart: RRR, S1S2 Abd: Soft, non-tender, non-distended. Normoactive bowel sounds Ext: Right foot first digit with necrosis, no drainage CBCD WBC 10.8 K/mm3 (4.0-10.0) H 03/03/18 08:30 RBC 3.38 M/mm3 (4.00-5.60) L 03/03/18 08:30 Hgb 10.1 GM/dL (11.7-16.9) L 03/03/18 08:30 Hct 30.4 % (35.4-49) L 03/03/18 08:30 MCV 90.0 fl (80-96) 03/03/18 08:30 MCHC 33.1 g/dl (32.0-35.9) 03/03/18 08:30 RDW 14.6 % (11.9-15.9) 03/03/18 08:30 Plt Count 284 K/MM3 (134-434) 03/03/18 08:30 MPV 9.7 fl (7.5-11.1) 03/03/18 08:30 CMP Sodium 138 mmol/L (136-145) 03/03/18 08:30 Potassium 5.5 mmol/L (3.5-5.1) H 03/03/18 08:30 Chloride 104 mmol/L (98-107) 03/03/18 08:30 Carbon Dioxide 25 mmol/L (21-32) 03/03/18 08:30 Anion Gap 9 (8-16) 03/03/18 08:30 BUN 29 mg/dL (7-18) H 03/03/18 08:30 Creatinine 2.0 mg/dL (0.7-1.3) H 03/03/18 08:30 Creat Clearance w eGFR 33.20 (>60) 03/03/18 08:30 Random Glucose 153 mg/dL (74-106) H 03/03/18 08:30 Calcium 8.6 mg/dL (8.5-10.1) 03/03/18 08:30 Total Bilirubin 0.5 mg/dL (0.2-1.0) 02/26/18 06:20 AST 19 U/L (15-37) D 02/26/18 06:20 ALT 28 U/L (12-78) D 02/26/18 06:20 Alkaline Phosphatase 115 U/L (45-117) D 02/26/18 06:20 Total Protein 6.2 g/dl (6.4-8.2) L 02/26/18 06:20 Albumin 2.2 g/dl (3.4-5.0) L 02/26/18 06:20 CARDIAC ENZYMES Creatine Kinase 82 IU/L (39-308) 02/22/18 13:13 Troponin I 0.04 ng/ml (0.00-0.05) D 02/22/18 13:13 Microbiology 02/22/18 11:00 Blood - Peripheral Venous Blood Culture - Final NO GROWTH AFTER 5 DAYS INCUBATION 02/22/18 11:00 Blood - Peripheral Venous Blood Culture - Final NO GROWTH AFTER 5 DAYS INCUBATION 02/22/18 11:00 Toe - Right Hallux Gram Stain - Final 02/22/18 11:00 Toe - Right Hallux Wound Culture - Final Pseudomonas Aeruginosa Klebsiella Pneumoniae Alcaligenes Species Staphylococcus Aureus Enterococcus Faecalis 02/22/18 12:15 Urine - Urine Clean Catch Urine Culture - Final NO GROWTH OBTAINED Assessment: This is a 72 year old male with PMHx of IDDM, HTN, CABG, CVA, hyperlipidemia, dementia, who presented to the ED with right foot first digit gangrene. Plan: 1) Right foot first digit dry gangrene - CTA with runoff: has 70-90% stenosis in right SFA and popliteal artery with collateral circulation going to foot. - Foot x-ray with no evidence of osteo - Patient has stents but it is unclear if MRI compatible. Will not be able to perform MRI at this time - No vascular interventions until cleared by cardiology. Cardiology clearance once ARF resolved. Discussed with Dr. Ku, can discharge the patient as it may take about 7 days for kidney function to normalize - Continue to monitor off antibiotics - Appreciate ID consult - Appreciate surgery consult 2) TREVOR - 2/2 contrast nephropathy - Continue to monitor - Hold all nephrotoxic agents - Appreciate nephrology consult 3) IDDM - BGM ACHS - Novolog sliding scale TIDAC 4) CAD s/p CABG and stenting - Continue ASA - Continue Plavix - Continue Ranexa 5) HTN - Continue Diovan - Continue Aldactone - Continue Coreg 6) Hyperlipidemia - Continue Lipitor 7) Prolonged Qtc 8) F/E/N: - Diabetic/sodium controlled diet - Monitor electrolytes 9) Prophylaxis: - Heparin 5,000u sq tid 10) Dispo: - Requires continued inpatient care CODE STATUS: FULL CODE Visit type - Emergency Visit Emergency Visit: Yes ED Registration Date: 02/22/18 Care time: The patient presented to the Emergency Department on the above date and was hospitalized for further evaluation of their emergent condition. - New Patient This patient is new to me today: No - Critical Care Critical Care patient: No
--- NOTE | 2018-03-04 13:50 | PN ---
Progress Note, Physician History of Present Illness: uncooperative otherwise stable - Current Medication List Current Medications: Active Medications Aspirin (Asa -) 81 mg PO HS [facility] Last Admin: 03/03/18 21:37 Dose: 81 mg Atorvastatin Calcium (Lipitor -) 80 mg PO HS [facility] Last Admin: 03/03/18 21:37 Dose: 80 mg Carvedilol (Coreg -) 25 mg PO BID [facility] Last Admin: 03/04/18 10:00 Dose: 25 mg Clopidogrel Bisulfate (Plavix -) 75 mg PO DAILY [facility] Last Admin: 03/04/18 10:00 Dose: 75 mg Docusate Sodium (Colace -) 100 mg PO Q8H PRN PRN Reason: CONSTIPATION Last Admin: 02/24/18 18:29 Dose: 100 mg Heparin Sodium (Porcine) (Heparin -) 5,000 unit SQ TID [facility] Last Admin: 03/04/18 06:00 Dose: 5,000 unit Insulin Aspart (Novolog Vial Sliding Scale -) 1 vial SQ TIDAC [facility]; Protocol Last Admin: 03/04/18 11:40 Dose: 4 units Pantoprazole Sodium (Protonix -) 40 mg PO DAILY [facility] Last Admin: 03/04/18 09:59 Dose: 40 mg Ranolazine (Ranexa -) 1,000 mg PO BID [facility] Last Admin: 03/04/18 10:00 Dose: 1,000 mg Thiamine HCl (Vitamin B1 -) 100 mg PO DAILY [facility] Last Admin: 03/04/18 09:59 Dose: 100 mg - Objective Vital Signs: Vital Signs Temperature 98.5 F 03/04/18 06:00 Pulse Rate 82 03/04/18 10:00 Respiratory Rate 20 03/04/18 10:00 Blood Pressure 152/88 03/04/18 10:00 O2 Sat by Pulse Oximetry (%) 97 03/03/18 20:22 Constitutional: Yes: No Distress, Calm Cardiovascular: Yes: Regular Rate and Rhythm Respiratory: Yes: Regular, CTA Bilaterally Gastrointestinal: Yes: Normal Bowel Sounds, Soft Musculoskeletal: Yes: Other Extremities: Yes: Other Neurological: Yes: Alert Labs: CBC, BMP 03/04/18 06:30 03/04/18 06:30 INR, PTT INR 1.19 (0.82-1.09) H 02/22/18 11:08 Assessment/Plan his is a 72 year old male with PMHx of IDDM, HTN, CABG, CVA, hyperlipidemia, dementia, who presented to the ED with right foot first digit gangrene. 1) Right foot first digit wet gangrene 2) Non-palpable right foot pulses 3) IDDM 4) CAD s/p CABG and stenting 5) HTN 6) Hyperlipidemia plan continue current mgmt will need amputation when ready all results noted will have to decide next step
[2018-03-04] MEDS: ASPIRIN 81 MG CHEWABLE TABLETS PO SCH (21:43)
[2018-03-04] MEDS: ATORVASTATIN CA 80 MG TABLET (FP) PO SCH (21:43)
[2018-03-05] MEDS: HEPARIN NA (PORCINE) 5,000 UNITS/ML 1ML VIAL SQ SCH ×3 (06:25→22:22)
[2018-03-05] MEDS: INSULIN SLIDING SCALE (NOVOLOG) 1 VIAL SQ SCH ×3 (06:25→16:44)
[2018-03-05 07:25] LABS: BASO % 0.5 % (0-2.0); EOS % 5.6 % (0-4.5); HEMATOCRIT 30.5 % (35.4-49); HEMOGLOBIN 10.1 GM/dL (11.7-16.9); LYMPH % 9.7 % (8-40); MCH 29.8 pg (25.7-33.7); MCHC 33.2 g/dl (32.0-35.9); MEAN CELL VOLUME 89.8 fl (80-96); MEAN PLT VOLUME 10.1 fl (7.5-11.1); MONO % 9.9 % (3.8-10.2); NEUT % 74.3 % (42.8-82.8); PLATELET COUNT 302 K/MM3 (134-434); RDW 15.3 % (11.9-15.9); WHITE BLOOD COUNT 10.4 K/mm3 (4.0-10.0)
[2018-03-05 07:54] LABS: ALBUMIN 2.7 g/dl (3.4-5.0); ANION GAP 7 (8-16); BLOOD UREA NITROGEN 34 mg/dL (7-18); CALCIUM 9.2 mg/dL (8.5-10.1); CHLORIDE 104 mmol/L (98-107); CO2 28 mmol/L (21-32); GLUCOSE,RANDOM 272 mg/dL (74-106); POTASSIUM 5.1 mmol/L (3.5-5.1); SODIUM 139 mmol/L (136-145)
[2018-03-05 07:58] LABS: ALK PHOS 171 U/L (45-117); BILIRUBIN,TOTAL 0.4 mg/dL (0.2-1.0); CREATININE 2.1 mg/dL (0.7-1.3); SGOT/AST 29 U/L (15-37); SGPT/ALT 39 U/L (12-78); TOT PROT 7.4 g/dl (6.4-8.2)
[2018-03-05] MEDS ORDERED: RANOLAZINE E.R. 500 MG TABLET (FP) ONE ×2 (09:49→20:42)
[2018-03-05] MEDS ORDERED: INSULIN (NOVOLOG) ASPART 100 UNITS/ML 10ML VIAL ONE (09:49)
[2018-03-05] MEDS: CARVEDILOL 25 MG TABLET (FP) PO SCH ×2 (09:58→22:21)
[2018-03-05] MEDS: CLOPIDOGREL BISULFATE 75 MG TABLET (FP) PO SCH (09:58)
[2018-03-05] MEDS: PANTOPRAZOLE 40 MG TABLET (FP) PO SCH (09:58)
[2018-03-05] MEDS: RANOLAZINE E.R. 1,000 MG TABLET (FP) PO SCH ×2 (09:58→22:22)
[2018-03-05] MEDS: THIAMINE HCL 100 MG TABLET (FP) PO SCH (09:58)
--- NOTE | 2018-03-05 11:39 | PN ---
Progress Note (short form) - Note Progress Note: Subjective: The patient was seen at the bedside, he is non-verbal Walked 65 ft with PT, however minimal assist of 2 Current Medications Generic Name Dose Route Start Last Admin Trade Name Jeremiah PRN Reason Stop Dose Admin Aspirin 81 mg 02/22/18 22:00 03/03/18 21:37 Asa - PO 81 mg HS [facility] Administration Atorvastatin Calcium 80 mg 02/22/18 22:00 03/03/18 21:37 Lipitor - PO 80 mg HS [facility] Administration Carvedilol 25 mg 02/22/18 22:00 03/04/18 10:00 Coreg - PO 25 mg BID [facility] Administration Clopidogrel Bisulfate 75 mg 02/23/18 10:00 03/04/18 10:00 Plavix - PO 75 mg DAILY [facility] Administration Docusate Sodium 100 mg 02/24/18 16:54 02/24/18 18:29 Colace - PO 100 mg Q8H PRN Administration CONSTIPATION Heparin Sodium (Porcine) 5,000 unit 02/22/18 22:00 03/04/18 06:00 Heparin - SQ 5,000 unit TID [facility] Administration Insulin Aspart 1 vial 03/01/18 07:23 03/04/18 11:40 Novolog Vial Sliding Scale - SQ 4 units TIDAC [facility] Administration Protocol Pantoprazole Sodium 40 mg 02/26/18 15:45 03/04/18 09:59 Protonix - PO 40 mg DAILY [facility] Administration Ranolazine 1,000 mg 02/22/18 22:00 03/04/18 10:00 Ranexa - PO 1,000 mg BID [facility] Administration Thiamine HCl 100 mg 02/23/18 10:00 03/04/18 09:59 Vitamin B1 - PO 100 mg DAILY [facility] Administration Objective: Vital Signs Period Temp Pulse Resp BP Sys/[place] Pulse Ox Last 24 Hr 98.5 F 82-95 18-20 125-157/70-90 97 Physical Exam: General: NAD, non-conversant Lungs: CTA bilaterally Heart: RRR, S1S2 Abd: Soft, non-tender, non-distended. Normoactive bowel sounds Ext: Right foot first digit with necrosis, no drainage CBCD WBC 10.4 K/mm3 (4.0-10.0) H 03/05/18 06:05 RBC 3.40 M/mm3 (4.00-5.60) L 03/05/18 06:05 Hgb 10.1 GM/dL (11.7-16.9) L 03/05/18 06:05 Hct 30.5 % (35.4-49) L 03/05/18 06:05 MCV 89.8 fl (80-96) 03/05/18 06:05 MCHC 33.2 g/dl (32.0-35.9) 03/05/18 06:05 RDW 15.3 % (11.9-15.9) 03/05/18 06:05 Plt Count 302 K/MM3 (134-434) 03/05/18 06:05 MPV 10.1 fl (7.5-11.1) 03/05/18 06:05 CMP Sodium 139 mmol/L (136-145) 03/05/18 06:05 Potassium 5.1 mmol/L (3.5-5.1) 03/05/18 06:05 Chloride 104 mmol/L (98-107) 03/05/18 06:05 Carbon Dioxide 28 mmol/L (21-32) 03/05/18 06:05 Anion Gap 7 (8-16) L 03/05/18 06:05 BUN 34 mg/dL (7-18) H 03/05/18 06:05 Creatinine 2.1 mg/dL (0.7-1.3) H 03/05/18 06:05 Creat Clearance w eGFR 31.38 (>60) 03/05/18 06:05 Random Glucose 272 mg/dL (74-106) H 03/05/18 06:05 Calcium 9.2 mg/dL (8.5-10.1) 03/05/18 06:05 Total Bilirubin 0.4 mg/dL (0.2-1.0) 03/05/18 06:05 AST 29 U/L (15-37) D 03/05/18 06:05 ALT 39 U/L (12-78) D 03/05/18 06:05 Alkaline Phosphatase 171 U/L (45-117) H D 03/05/18 06:05 Total Protein 7.4 g/dl (6.4-8.2) 03/05/18 06:05 Albumin 2.7 g/dl (3.4-5.0) L 03/05/18 06:05 CARDIAC ENZYMES Creatine Kinase 82 IU/L (39-308) 02/22/18 13:13 Troponin I 0.04 ng/ml (0.00-0.05) D 02/22/18 13:13 Microbiology 02/22/18 11:00 Blood - Peripheral Venous Blood Culture - Final NO GROWTH AFTER 5 DAYS INCUBATION 02/22/18 11:00 Blood - Peripheral Venous Blood Culture - Final NO GROWTH AFTER 5 DAYS INCUBATION 02/22/18 11:00 Toe - Right Hallux Gram Stain - Final 02/22/18 11:00 Toe - Right Hallux Wound Culture - Final Pseudomonas Aeruginosa Klebsiella Pneumoniae Alcaligenes Species Staphylococcus Aureus Enterococcus Faecalis 02/22/18 12:15 Urine - Urine Clean Catch Urine Culture - Final NO GROWTH OBTAINED Assessment: This is a 72 year old male with PMHx of IDDM, HTN, CABG, CVA, hyperlipidemia, dementia, who presented to the ED with right foot first digit gangrene. Plan: 1) Right foot first digit dry gangrene - CTA with runoff: has 70-90% stenosis in right SFA and popliteal artery with collateral circulation going to foot. - Foot x-ray with no evidence of osteo - Patient has stents but it is unclear if MRI compatible. Will not be able to perform MRI at this time - No vascular interventions until cleared by cardiology. Cardiology clearance once ARF resolved. Discussed with Dr. Ku, can discharge the patient as it may take about 10-14 days for kidney function to normalize - Discussed with cards that the patient can be discharged with outpatient follow -up for stress test - Discussed with surgical PAs that patient can be discharged with outpatient follow-up for angiogram when the patient has cardiac clearance - Continue to monitor off antibiotics - Appreciate ID consult - Appreciate surgery consult 2) TREVOR - 2/2 contrast nephropathy - Continue to monitor - Hold all nephrotoxic agents - Appreciate nephrology consult 3) IDDM - BGM ACHS - Novolog sliding scale TIDAC 4) CAD s/p CABG and stenting - Continue ASA - Continue Plavix - Continue Ranexa 5) HTN - Continue Diovan - Continue Aldactone - Continue Coreg 6) Hyperlipidemia - Continue Lipitor 7) Prolonged Qtc 8) F/E/N: - Diabetic/sodium controlled diet - Monitor electrolytes 9) Prophylaxis: - Heparin 5,000u sq tid - PT: walked 65 ft with minimal assistance of 2. Patient leaning posteriorly with poor safety awareness 10) Dispo: - Discussed with Keshawn, patient unsafe for discharge home as the daughter reports only the will be home with the patient and she is unable to take care of him. Discharge plan still pending - Requires continued inpatient care CODE STATUS: FULL CODE Visit type - Emergency Visit Emergency Visit: Yes ED Registration Date: 02/22/18 Care time: The patient presented to the Emergency Department on the above date and was hospitalized for further evaluation of their emergent condition. - New Patient This patient is new to me today: No - Critical Care Critical Care patient: No
--- NOTE | 2018-03-05 11:43 | PN ---
Progress Note, Physician History of Present Illness: Patient is a 72-year-old male ([facility]) with past medical history of IDDM, systolic CHF, HTN, CABG ?2008 after [place], stents ?3, HLD, CVA x 5, PAD , dementia, who presents to the emergency department today with a right toe infection. Patient has dementia and is unable to communicate at baseline. He presents with his family who provides in history of present illness. Family states that they returned from the [facility] today. He was treated at a local hospital in the for a toe infection to the right first toe. States that he received ampicillin and the wound was debrided in the hospital. They state that now they believe the toe was worse. Denies fevers, cough, nausea and vomiting. - Current Medication List Current Medications: Active Medications Aspirin (Asa -) 81 mg PO HS [facility] Last Admin: 03/04/18 21:43 Dose: 81 mg Atorvastatin Calcium (Lipitor -) 80 mg PO [facility] Last Admin: 03/04/18 21:43 Dose: 80 mg Carvedilol (Coreg -) 25 mg PO BID [facility] Last Admin: 03/05/18 09:58 Dose: 25 mg Clopidogrel Bisulfate (Plavix -) 75 mg PO DAILY [facility] Last Admin: 03/05/18 09:58 Dose: 75 mg Docusate Sodium (Colace -) 100 mg PO Q8H PRN PRN Reason: CONSTIPATION Last Admin: 02/24/18 18:29 Dose: 100 mg Heparin Sodium (Porcine) (Heparin -) 5,000 unit SQ TID [facility] Last Admin: 03/05/18 06:25 Dose: 5,000 unit Insulin Aspart (Novolog Vial Sliding Scale -) 1 vial SQ TIDAC [facility]; Protocol Last Admin: 03/05/18 10:04 Dose: 6 units Pantoprazole Sodium (Protonix -) 40 mg PO DAILY [facility] Last Admin: 03/05/18 09:58 Dose: 40 mg Ranolazine (Ranexa -) 1,000 mg PO BID [facility] Last Admin: 03/05/18 09:58 Dose: 1,000 mg Thiamine HCl (Vitamin B1 -) 100 mg PO DAILY [facility] Last Admin: 03/05/18 09:58 Dose: 100 mg - Objective Vital Signs: Vital Signs Temperature 97.8 F 03/05/18 05:45 Pulse Rate 90 03/05/18 05:45 Respiratory Rate 20 03/05/18 05:45 Blood Pressure 149/77 03/05/18 05:45 O2 Sat by Pulse Oximetry (%) 97 03/03/18 20:22 Eyes: Yes: WNL, Conjunctiva Clear, EOM Intact HENT: Yes: WNL, Atraumatic, Normocephalic Neck: Yes: WNL, Supple, Trachea Midline Cardiovascular: Yes: WNL, Regular Rate and Rhythm Respiratory: Yes: WNL, Regular, CTA Bilaterally Gastrointestinal: Yes: WNL, Normal Bowel Sounds Genitourinary: Yes: WNL Musculoskeletal: Yes: WNL Extremities: Yes: WNL Edema: No Integumentary: Yes: WNL Neurological: Yes: WNL, Alert, Oriented ...Motor Strength: WNL Psychiatric: Yes: WNL Labs: CBC, BMP 03/05/18 06:05 03/05/18 06:05 INR, PTT INR 1.19 (0.82-1.09) H 02/22/18 11:08 Assessment/Plan - Problems (1) IDDM (insulin dependent diabetes mellitus) Code(s): E11.9 - TYPE 2 DIABETES MELLITUS WITHOUT COMPLICATIONS; Z79.4 - PENITENTIARY (CURRENT) USE OF INSULIN (2) Necrosis of toe Assessment/Plan: CTA results noted: extensive bilateral arterial disease. See "Coronary artery disease" regarding prior coronary angiogram. Await improvement of renal function prior to proceeding with coronary artery evaluation. Code(s): I96 - GANGRENE, NOT ELSEWHERE CLASSIFIED (3) Chronic systolic (congestive) heart failure Assessment/Plan: Moderately reduced LVEF noted on 2015 ECHO; study 02/25/2018 now shows moderate- severely reduced LVEF, with severe DC and TR, severe pulmonary HTN. Presently on valsartan, carvedilol, Ranexa, and spironolactone. F/u BUN/Cr, Is and Os, daily weight, electrolytes. Code(s): I50.22 - CHRONIC SYSTOLIC (CONGESTIVE) HEART FAILURE (4) Coronary artery disease Assessment/Plan: Pt had CABG in ?2007 after [place], per family. Discussed case again with Dr. Stef Mackey who, in 2012, performed coronary angiogram. Triple-vessel disease was noted; a vein graft to diagonal graft was stented, and pt returned 07/2013 for RCA stent. He was to return for stent of vein graft to [place]. Moderately severe LV systolic dysfunction on ECHO this admission (in 2013, was mildly reduced LVEF). Will order stress Lexiscan MIBI when pt is stable (presently with acute ARF, which needs to be corrected before pt would be eligible for coronary angiogram, should it be considered necessary). Code(s): I25.10 - ATHSCL HEART DISEASE OF [place] CORONARY ARTERY W/O ANG PCTRS Qualifiers: Coronary Disease-Associated Artery/Lesion type: [place] artery [place] vs. transplanted heart: [place] heart Associated angina: without angina Qualified Code(s): I25.10 - Atherosclerotic heart disease of [place] coronary artery without angina pectoris (5) Dementia Assessment/Plan: see under "CVA" Code(s): F03.90 - UNSPECIFIED DEMENTIA WITHOUT BEHAVIORAL DISTURBANCE (6) S/P CABG (coronary artery bypass graft) Assessment/Plan: see under "coronary artery disease" Code(s): Z95.1 - PRESENCE OF AORTOCORONARY BYPASS GRAFT (7) Vision loss of right eye Code(s): H54.61 - UNQUALIFIED VISUAL LOSS, RIGHT EYE, NORMAL VISION LEFT EYE (8) Hyperlipidemia Assessment/Plan: On atorvastatin 80 mg daily; LDL 76; HDL 30 mg/dL. Code(s): E78.5 - HYPERLIPIDEMIA, UNSPECIFIED (9) CVA (cerebral vascular accident) Assessment/Plan: Family states pt has had five CVAs over the past several years, and believes his "dementia" is due to these ([address] noted multiple cortical infarcts, some new since 2014). f/u with neurologist. Code(s): I63.9 - CEREBRAL INFARCTION, UNSPECIFIED (10) Renal dysfunction Assessment/Plan: Improvement in renal function. f/u with sheeting puller. From a cardiac standpoint, pt will followed closely with coronary artery evaluation scheduled when renal function has substantially improved, perhaps as early as next week. Code(s): N28.9 - DISORDER OF KIDNEY AND URETER, UNSPECIFIED
--- NOTE | 2018-03-05 11:54 | PN ---
Progress Note, Physician History of Present Illness: awaiting for final plan further plan according to vascular - Current Medication List Current Medications: Active Medications Aspirin (Asa -) 81 mg PO HS [facility] Last Admin: 03/04/18 21:43 Dose: 81 mg Atorvastatin Calcium (Lipitor -) 80 mg PO HS [facility] Last Admin: 03/04/18 21:43 Dose: 80 mg Carvedilol (Coreg -) 25 mg PO BID [facility] Last Admin: 03/05/18 09:58 Dose: 25 mg Clopidogrel Bisulfate (Plavix -) 75 mg PO DAILY [facility] Last Admin: 03/05/18 09:58 Dose: 75 mg Docusate Sodium (Colace -) 100 mg PO Q8H PRN PRN Reason: CONSTIPATION Last Admin: 02/24/18 18:29 Dose: 100 mg Heparin Sodium (Porcine) (Heparin -) 5,000 unit SQ TID [facility] Last Admin: 03/05/18 06:25 Dose: 5,000 unit Insulin Aspart (Novolog Vial Sliding Scale -) 1 vial SQ TIDAC [facility]; Protocol Last Admin: 03/05/18 10:04 Dose: 6 units Pantoprazole Sodium (Protonix -) 40 mg PO DAILY [facility] Last Admin: 03/05/18 09:58 Dose: 40 mg Ranolazine (Ranexa -) 1,000 mg PO BID [facility] Last Admin: 03/05/18 09:58 Dose: 1,000 mg Thiamine HCl (Vitamin B1 -) 100 mg PO DAILY [facility] Last Admin: 03/05/18 09:58 Dose: 100 mg - Objective Vital Signs: Vital Signs Temperature 97.8 F 03/05/18 05:45 Pulse Rate 90 03/05/18 05:45 Respiratory Rate 20 03/05/18 05:45 Blood Pressure 149/77 03/05/18 05:45 O2 Sat by Pulse Oximetry (%) 97 03/03/18 20:22 Constitutional: Yes: Other Cardiovascular: Yes: S1, S2 Gastrointestinal: Yes: Normal Bowel Sounds, Soft Musculoskeletal: Yes: Other Extremities: Yes: Other Labs: CBC, BMP 03/05/18 06:05 03/05/18 06:05 INR, PTT INR 1.19 (0.82-1.09) H 02/22/18 11:08 Assessment/Plan his is a 72 year old male with PMHx of IDDM, HTN, CABG, CVA, hyperlipidemia, dementia, who presented to the ED with right foot first digit gangrene. 1) Right foot first digit wet gangrene 2) Non-palpable right foot pulses 3) IDDM 4) CAD s/p CABG and stenting 5) HTN 6) Hyperlipidemia plan continue current mgmt will need amputation when ready all results noted will have to decide next step
--- NOTE | 2018-03-05 13:02 | PN ---
Progress Note (short form) - Note Progress Note: Renal follow up for TREVOR Pt seen and examined at the bedside awake and alert not answering questions Vital Signs Temperature 98.5 F 03/05/18 08:00 Pulse Rate 91 H 03/05/18 08:00 Respiratory Rate 20 03/05/18 08:00 Blood Pressure 153/94 03/05/18 08:00 O2 Sat by Pulse Oximetry (%) 97 03/05/18 08:00 Intake & Output 03/02/18 03/03/18 03/04/18 03/05/18 23:59 23:59 23:59 23:59 Intake Total 500 400 350 0 Output Total 0 Balance 500 400 350 0 Weight 64.41 kg NAD No LE edema CBC, BMP 03/05/18 06:05 03/05/18 06:05 Current Medications Aspirin (Asa -) 81 mg PO HS [facility] Last Admin: 03/04/18 21:43 Dose: 81 mg Atorvastatin Calcium (Lipitor -) 80 mg PO HS [facility] Last Admin: 03/04/18 21:43 Dose: 80 mg Carvedilol (Coreg -) 25 mg PO BID [facility] Last Admin: 03/05/18 09:58 Dose: 25 mg Clopidogrel Bisulfate (Plavix -) 75 mg PO DAILY [facility] Last Admin: 03/05/18 09:58 Dose: 75 mg Docusate Sodium (Colace -) 100 mg PO Q8H PRN PRN Reason: CONSTIPATION Last Admin: 02/24/18 18:29 Dose: 100 mg Heparin Sodium (Porcine) (Heparin -) 5,000 unit SQ TID [facility] Last Admin: 03/05/18 06:25 Dose: 5,000 unit Insulin Aspart (Novolog Vial Sliding Scale -) 1 vial SQ TIDAC [facility]; Protocol Last Admin: 03/05/18 10:04 Dose: 6 units Pantoprazole Sodium (Protonix -) 40 mg PO DAILY [facility] Last Admin: 03/05/18 09:58 Dose: 40 mg Ranolazine (Ranexa -) 1,000 mg PO BID [facility] Last Admin: 03/05/18 09:58 Dose: 1,000 mg Thiamine HCl (Vitamin B1 -) 100 mg PO DAILY [facility] Last Admin: 03/05/18 09:58 Dose: 100 mg 72 year old [place] speaking male from [place] with a past medical history of DM, HTN, CAD s/p CABG in 2007, 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 #TREVOR secondary to contrast nephropathy #PVD #CVA Renal function unchanged, is non-oliguric and appears evolemic no acidosis, hyperkalemia, fluid overload to warrant BRIDGE TENDER Low K diet as pt tends to be mildy hyperkalemic with his TREVOR suspect that it may take 10-14 days from date of injury for kidneys to show improvement Reg Ku DO
[2018-03-05] MEDS: ASPIRIN 81 MG CHEWABLE TABLETS PO SCH (22:21)
[2018-03-05] MEDS: ATORVASTATIN CA 80 MG TABLET (FP) PO SCH (22:21)
[2018-03-06] MEDS: INSULIN SLIDING SCALE (NOVOLOG) 1 VIAL SQ SCH ×2 (06:40→11:31)
[2018-03-06] MEDS: HEPARIN NA (PORCINE) 5,000 UNITS/ML 1ML VIAL SQ SCH ×2 (06:41→14:30)
[2018-03-06 08:46] LABS: BASO % 0.6 % (0-2.0); EOS % 5.9 % (0-4.5); HEMATOCRIT 30.3 % (35.4-49); HEMOGLOBIN 9.9 GM/dL (11.7-16.9); MCH 29.7 pg (25.7-33.7); MCHC 32.7 g/dl (32.0-35.9); MEAN CELL VOLUME 90.8 fl (80-96); MEAN PLT VOLUME 9.9 fl (7.5-11.1); MONO % 9.2 % (3.8-10.2); NEUT % 76.3 % (42.8-82.8); PLATELET COUNT 330 K/MM3 (134-434); RBC 3.34 M/mm3 (4.00-5.60); RDW 15.4 % (11.9-15.9); WHITE BLOOD COUNT 11.5 K/mm3 (4.0-10.0)
[2018-03-06] MEDS ORDERED: RANOLAZINE E.R. 500 MG TABLET (FP) ONE (08:59)
[2018-03-06] MEDS: THIAMINE HCL 100 MG TABLET (FP) PO SCH (09:08)
[2018-03-06] MEDS: PANTOPRAZOLE 40 MG TABLET (FP) PO SCH (09:08)
[2018-03-06] MEDS: CARVEDILOL 25 MG TABLET (FP) PO SCH (09:08)
[2018-03-06] MEDS: RANOLAZINE E.R. 1,000 MG TABLET (FP) PO SCH (09:08)
[2018-03-06] MEDS: CLOPIDOGREL BISULFATE 75 MG TABLET (FP) PO SCH (09:08)
[2018-03-06 09:15] LABS: ANION GAP 10 (8-16); BLOOD UREA NITROGEN 29 mg/dL (7-18); CHLORIDE 107 mmol/L (98-107); CO2 26 mmol/L (21-32); GLUCOSE,RANDOM 81 mg/dL (74-106); MAGNESIUM 2.2 mg/dL (1.8-2.4); POTASSIUM 4.9 mmol/L (3.5-5.1); SODIUM 143 mmol/L (136-145)
[2018-03-06 09:17] LABS: CREATININE 1.8 mg/dL (0.7-1.3); PHOSPHOROUS 3.5 mg/dL (2.5-4.9)
--- NOTE | 2018-03-06 11:08 | PN ---
Progress Note, Physician History of Present Illness: awaiting for final plan further plan according to vascular - Current Medication List Current Medications: Active Medications Aspirin (Asa -) 81 mg PO HS [facility] Last Admin: 03/05/18 22:21 Dose: 81 mg Atorvastatin Calcium (Lipitor -) 80 mg PO HS [facility] Last Admin: 03/05/18 22:21 Dose: 80 mg Carvedilol (Coreg -) 25 mg PO BID [facility] Last Admin: 03/06/18 09:08 Dose: 25 mg Clopidogrel Bisulfate (Plavix -) 75 mg PO DAILY [facility] Last Admin: 03/06/18 09:08 Dose: 75 mg Docusate Sodium (Colace -) 100 mg PO Q8H PRN PRN Reason: CONSTIPATION Last Admin: 02/24/18 18:29 Dose: 100 mg Heparin Sodium (Porcine) (Heparin -) 5,000 unit SQ TID [facility] Last Admin: 03/06/18 06:41 Dose: 5,000 unit Insulin Aspart (Novolog Vial Sliding Scale -) 1 vial SQ TIDAC [facility]; Protocol Last Admin: 03/06/18 06:40 Dose: 4 units Pantoprazole Sodium (Protonix -) 40 mg PO DAILY [facility] Last Admin: 03/06/18 09:08 Dose: 40 mg Ranolazine (Ranexa -) 1,000 mg PO BID [facility] Last Admin: 03/06/18 09:08 Dose: 1,000 mg Thiamine HCl (Vitamin B1 -) 100 mg PO DAILY [facility] Last Admin: 03/06/18 09:08 Dose: 100 mg - Objective Vital Signs: Vital Signs Temperature 98.6 F 03/06/18 05:35 Pulse Rate 87 03/06/18 05:35 Respiratory Rate 20 03/06/18 05:35 Blood Pressure 147/78 03/06/18 05:35 O2 Sat by Pulse Oximetry (%) 97 03/05/18 20:29 Constitutional: Yes: No Distress Cardiovascular: Yes: S1, S2 Respiratory: Yes: WNL Gastrointestinal: Yes: Normal Bowel Sounds, Soft Extremities: Yes: Other Wound/Incision: Yes: Other (dry gangrene) Psychiatric: Yes: Alert Labs: CBC, BMP 03/06/18 07:55 03/06/18 07:55 INR, PTT INR 1.19 (0.82-1.09) H 02/22/18 11:08 Assessment/Plan his is a 72 year old male with PMHx of IDDM, HTN, CABG, CVA, hyperlipidemia, dementia, who presented to the ED with right foot first digit gangrene. 1) Right foot first digit wet gangrene 2) Non-palpable right foot pulses 3) IDDM 4) CAD s/p CABG and stenting 5) HTN 6) Hyperlipidemia plan continue current mgmt will need amputation when ready all results noted will have to decide next step
[2018-03-06] MEDS ORDERED: INSULIN (NOVOLOG) ASPART 100 UNITS/ML 10ML VIAL ONE (11:20)
[2018-03-06 12:59] LABS: CALCIUM 9.3 mg/dL (8.5-10.1)
--- NOTE | 2018-03-06 13:02 | DS ---
Physical Exam: SUBJECTIVE: Patient seen and examined OBJECTIVE: Vital Signs Period Temp Pulse Resp BP Sys/[place] Pulse Ox Last 24 Hr 97.8 F-99.0 F 75-87 18-21 130-159/78-87 97 PHYSICAL EXAM GENERAL: The patient is awake, alert, and fully oriented, in no acute distress. HEAD: Normal with no signs of trauma. EYES: PERRL, extraocular movements intact, sclera anicteric, conjunctiva clear. ENT: Ears normal, nares patent, oropharynx clear without exudates, moist mucous membranes. NECK: Trachea midline, full range of motion, supple. LUNGS: Breath sounds equal, clear to auscultation bilaterally, no wheezes, no crackles, no accessory muscle use. HEART: Regular rate and rhythm, S1, S2 without murmur, rub or gallop. ABDOMEN: Soft, nontender, nondistended, normoactive bowel sounds, no guarding, no rebound, no hepatosplenomegaly, no masses. EXTREMITIES: 2+ pulses, warm, well-perfused, no edema. NEUROLOGICAL: Cranial nerves II through XII grossly intact. Normal speech, gait not observed. PSYCH: Normal mood, normal affect. SKIN: Warm, dry, normal turgor, no rashes or lesions noted. LABS Laboratory Results - last 24 hr 03/05/18 03/05/18 03/06/18 16:43 21:48 06:02 WBC RBC Hgb Hct MCV MCH MCHC RDW Plt Count MPV Absolute Neuts (auto) Neutrophils % Lymphocytes % Monocytes % Eosinophils % Basophils % Nucleated RBC % Sodium Potassium Chloride Carbon Dioxide Anion Gap BUN Creatinine Creat Clearance w eGFR POC Glucometer 199 217 216 Random Glucose Calcium Phosphorus Magnesium 03/06/18 03/06/18 03/06/18 07:55 07:55 11:11 WBC 11.5 H RBC 3.34 L Hgb 9.9 L Hct 30.3 L MCV 90.8 MCH 29.7 MCHC 32.7 RDW 15.4 Plt Count 330 MPV 9.9 Absolute Neuts (auto) 8.7 Neutrophils % 76.3 Lymphocytes % 8.0 Monocytes % 9.2 Eosinophils % 5.9 H Basophils % 0.6 Nucleated RBC % 0 Sodium 143 Potassium 4.9 Chloride 107 Carbon Dioxide 26 Anion Gap 10 BUN 29 H Creatinine 1.8 H Creat Clearance w eGFR 37.49 POC Glucometer 284 Random Glucose 81 D Calcium 9.3 Phosphorus 3.5 Magnesium 2.2 HOSPITAL COURSE: Date of Admission:02/22/18 Date of Discharge: 03/06/18 Discharge Summary Reason For Visit: TOE NECROSIS DIABETES MELLITUS Current Active Problems CVA (cerebral vascular accident) (Acute) Hyperlipidemia (Acute) IDDM (insulin dependent diabetes mellitus) (Acute) Necrosis of toe (Acute) Renal dysfunction (Acute) Condition: Stable - Instructions Diet, Activity, Other Instructions: The patient needs to be seen by Dr. Kings Finney, travel nurse, in two weeks. Once his renal function has stabilized (baseline Cr = 1.0), he needs to be seen by a motor vehicle parts interpreter for stres testing and other cardiac evaluation. Once cleared for surgery by cardiology, patient will require a procedure on his right great toe. Referrals: Laney Beckford MD [Primary Care Provider] - Reg Ku MD [Staff Physician] - 2 Weeks Disposition: LONG TERM FACILITY - Home Medications Comprehensive Discharge Medication List: Ambulatory Orders Insulin (Novolog 70/30) [Novolog Mix 70/30 Flexpen -] 30 units SQ BIDI #0 pen Aspirin [ASA -] 81 mg PO HS #30 tab.chew 06/14/16 Atorvastatin Ca [Lipitor] 80 mg PO HS #30 tablet 06/14/16 Carvedilol [Coreg -] 25 mg PO BID #60 tablet 06/14/16 Clopidogrel Bisulfate [Plavix -] 75 mg PO DAILY #30 tablet 06/14/16 Insulin Aspart Prot/Insuln Asp [Novolog Mix 70-30 Flexpen Syrn] 10 unit SQ BIDAC #1 ml 06/14/16 Ranolazine [Ranexa -] 1,000 mg PO BID #60 tab 06/14/16 Thiamine HCl [Vitamin B1 -] 100 mg PO DAILY #30 tablet 06/14/16 Pantoprazole Sodium [Protonix -] 40 mg PO DAILY tablet.ec 03/06/18 - Discharge Referral Referred to [facility] No Physician Referral: Tomas Patel MD ([facility])
--- NOTE | 2018-03-06 13:55 | PN ---
Progress Note, Physician History of Present Illness: Patient is a 72-year-old male ([facility]) with past medical history of IDDM, systolic CHF, HTN, CABG ?2008 after [place], stents ?3, HLD, CVA x 5, PAD , dementia, who presents to the emergency department today with a right toe infection. Patient has dementia and is unable to communicate at baseline. He presents with his family who provides in history of present illness. Family states that they returned from the [facility] today. He was treated at a local hospital in the for a toe infection to the right first toe. States that he received ampicillin and the wound was debrided in the hospital. They state that now they believe the toe was worse. Denies fevers, cough, nausea and vomiting. - Current Medication List Current Medications: Active Medications Aspirin (Asa -) 81 mg PO [facility] Last Admin: 03/05/18 22:21 Dose: 81 mg Atorvastatin Calcium (Lipitor -) 80 mg PO [facility] Last Admin: 03/05/18 22:21 Dose: 80 mg Carvedilol (Coreg -) 25 mg PO BID [facility] Last Admin: 03/06/18 09:08 Dose: 25 mg Clopidogrel Bisulfate (Plavix -) 75 mg PO DAILY [facility] Last Admin: 03/06/18 09:08 Dose: 75 mg Docusate Sodium (Colace -) 100 mg PO Q8H PRN PRN Reason: CONSTIPATION Last Admin: 02/24/18 18:29 Dose: 100 mg Heparin Sodium (Porcine) (Heparin -) 5,000 unit SQ TID [facility] Last Admin: 03/06/18 06:41 Dose: 5,000 unit Insulin Aspart (Novolog Vial Sliding Scale -) 1 vial SQ TIDAC [facility]; Protocol Last Admin: 03/06/18 11:31 Dose: 6 units Pantoprazole Sodium (Protonix -) 40 mg PO DAILY [facility] Last Admin: 03/06/18 09:08 Dose: 40 mg Ranolazine (Ranexa -) 1,000 mg PO BID [facility] Last Admin: 03/06/18 09:08 Dose: 1,000 mg Thiamine HCl (Vitamin B1 -) 100 mg PO DAILY [facility] Last Admin: 03/06/18 09:08 Dose: 100 mg - Objective Vital Signs: Vital Signs Temperature 98.6 F 03/06/18 05:35 Pulse Rate 87 03/06/18 05:35 Respiratory Rate 20 03/06/18 05:35 Blood Pressure 147/78 03/06/18 05:35 O2 Sat by Pulse Oximetry (%) 97 03/05/18 20:29 Eyes: Yes: WNL, Conjunctiva Clear, EOM Intact HENT: Yes: WNL, Atraumatic, Normocephalic Neck: Yes: WNL, Supple, Trachea Midline Cardiovascular: Yes: WNL, Regular Rate and Rhythm Respiratory: Yes: WNL, Regular, CTA Bilaterally Gastrointestinal: Yes: WNL, Normal Bowel Sounds Genitourinary: Yes: WNL Musculoskeletal: Yes: WNL Extremities: Yes: WNL Edema: No Integumentary: Yes: WNL ...Motor Strength: WNL Psychiatric: Yes: WNL Labs: CBC, BMP 03/06/18 07:55 03/06/18 07:55 INR, PTT INR 1.19 (0.82-1.09) H 02/22/18 11:08 Assessment/Plan - Problems (1) IDDM (insulin dependent diabetes mellitus) Code(s): E11.9 - TYPE 2 DIABETES MELLITUS WITHOUT COMPLICATIONS; Z79.4 - ASSISTED (CURRENT) USE OF INSULIN (2) Necrosis of toe Assessment/Plan: CTA results noted: extensive bilateral arterial disease. See "Coronary artery disease" regarding prior coronary angiogram. Await improvement of renal function prior to proceeding with coronary artery evaluation. Code(s): I96 - GANGR[place], NOT ELSEWHERE CLASSIFIED (3) Chronic systolic (congestive) heart failure Assessment/Plan: Moderately reduced LVEF noted on 2015 ECHO; study 02/25/2018 now shows moderate- severely reduced LVEF, with severe AR and TR, severe pulmonary HTN. Presently on valsartan, carvedilol, Ranexa, and spironolactone. F/u BUN/Cr, Is and Os, daily weight, electrolytes. Code(s): I50.22 - CHRONIC SYSTOLIC (CONGESTIVE) HEART FAILURE (4) Coronary artery disease Assessment/Plan: Pt had CABG in ?2007 after [place], per family. Discussed case again with Dr. Stef Mackey who, in 2012, performed coronary angiogram. Triple-vessel disease was noted; a vein graft to diagonal graft was stented, and pt returned 07/2013 for RCA stent. He was to return for stent of vein graft to diagonal. Moderately severe LV systolic dysfunction on ECHO this admission (in 2013, was mildly reduced LVEF). Will order stress Lexiscan MIBI when pt is stable (presently with acute ARF, which needs to be corrected before pt would be eligible for coronary angiogram, should it be considered necessary). Code(s): I25.10 - ATHSCL HEART DISEASE OF [place] CORONARY ARTERY W/O ANG PCTRS Qualifiers: Coronary Disease-Associated Artery/Lesion type: [place] artery [place] vs. transplanted heart: [place] heart Associated angina: without angina Qualified Code(s): I25.10 - Atherosclerotic heart disease of [place] coronary artery without angina pectoris (5) Dementia Assessment/Plan: see under "CVA" Code(s): F03.90 - UNSPECIFIED DEMENTIA WITHOUT BEHAVIORAL DISTURBANCE (6) S/P CABG (coronary artery bypass graft) Assessment/Plan: see under "coronary artery disease" Code(s): Z95.1 - PRESENCE OF AORTOCORONARY BYPASS GRAFT (7) Vision loss of right eye Code(s): H54.61 - UNQUALIFIED VISUAL LOSS, RIGHT EYE, NORMAL VISION LEFT EYE (8) Hyperlipidemia Assessment/Plan: On atorvastatin 80 mg daily; LDL 76; HDL 30 mg/dL. Code(s): E78.5 - HYPERLIPIDEMIA, UNSPECIFIED (9) CVA (cerebral vascular accident) Assessment/Plan: Family states pt has had five CVAs over the past several years, and believes his "dementia" is due to these ([address] noted multiple cortical infarcts, some new since 2014). f/u with neurologist. Code(s): I63.9 - CEREBRAL INFARCTION, UNSPECIFIED (10) Renal dysfunction Assessment/Plan: Improvement in renal function. 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 From a cardiac standpoint, pt will followed closely with coronary artery evaluation scheduled when renal function has substantially improved, perhaps as early as next week. Code(s): N28.9 - DISORDER OF KIDNEY AND URETER, UNSPECIFIED
[2018-03-06 14:05] VITALS: BP 129/61; PULSE 77; TEMP 97.4
--- NOTE | 2018-03-06 14:28 | PN ---
Progress Note (short form) - Note Progress Note: Renal follow up for TREVOR Pt seen and examined at the bedside awake and alert no acute complaints for discharge today Vital Signs Temperature 97.4 F L 03/06/18 14:02 Pulse Rate 77 03/06/18 14:02 Respiratory Rate 20 03/06/18 14:02 Blood Pressure 129/61 03/06/18 14:02 O2 Sat by Pulse Oximetry (%) 97 03/05/18 20:29 Intake & Output 03/03/18 03/04/18 03/05/18 03/06/18 23:59 23:59 23:59 23:59 Intake Total 400 350 500 240 Output Total 0 Balance 400 350 500 240 Weight 64.41 kg NAD No LE edema CBC, BMP 03/06/18 07:55 03/06/18 07:55 Current Medications Aspirin (Asa -) 81 mg PO HS [facility] Last Admin: 03/05/18 22:21 Dose: 81 mg Atorvastatin Calcium (Lipitor -) 80 mg PO HS [facility] Last Admin: 03/05/18 22:21 Dose: 80 mg Carvedilol (Coreg -) 25 mg PO BID [facility] Last Admin: 03/06/18 09:08 Dose: 25 mg Clopidogrel Bisulfate (Plavix -) 75 mg PO DAILY [facility] Last Admin: 03/06/18 09:08 Dose: 75 mg Docusate Sodium (Colace -) 100 mg PO Q8H PRN PRN Reason: CONSTIPATION Last Admin: 02/24/18 18:29 Dose: 100 mg Heparin Sodium (Porcine) (Heparin -) 5,000 unit SQ TID [facility] Last Admin: 03/06/18 06:41 Dose: 5,000 unit Insulin Aspart (Novolog Vial Sliding Scale -) 1 vial SQ TIDAC [facility]; Protocol Last Admin: 03/06/18 11:31 Dose: 6 units Pantoprazole Sodium (Protonix -) 40 mg PO DAILY [facility] Last Admin: 03/06/18 09:08 Dose: 40 mg Ranolazine (Ranexa -) 1,000 mg PO BID [facility] Last Admin: 03/06/18 09:08 Dose: 1,000 mg Thiamine HCl (Vitamin B1 -) 100 mg PO DAILY [facility] Last Admin: 03/06/18 09:08 Dose: 100 mg 72 year old [place]ar[place] speaking male from [place] with a past medical history of DM, HTN, CAD s/p CABG in 2007, 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 #TREVOR secondary to contrast nephropathy #PVD #CVA Renal function stable at this time would repeat BMP as outpatient in 3-5 days would wait until renal function normalizes before repeat contrast exposure Reg Ku DO
== END 2018-03-06 14:15 | DRG 197 ==
LOC: JER 10:11 → JERBED 15:55 → J6S 23:22
PROVIDERS: ADMIT Internal Medicine; ATTEND Nurse Practitioner Acute Care
DX: E11.52 Type 2 diabetes mellitus with diabetic peripheral angiopathy with gangrene (principal); N17.9 Acute kidney failure, unspecified; I96 Gangrene, not elsewhere classified; I50.22 Chronic systolic (congestive) heart failure; E11.621 Type 2 diabetes mellitus with foot ulcer; L97.519 Non-pressure chronic ulcer of other part of right foot with unspecified severity; E11.69 Type 2 diabetes mellitus with other specified complication; E11.649 Type 2 diabetes mellitus with hypoglycemia without coma; I27.20 Pulmonary hypertension, unspecified; E87.5 Hyperkalemia; I11.0 Hypertensive heart disease with heart failure; F03.90 Unspecified dementia, unspecified severity, without behavioral disturbance, psychotic disturbance, mood disturbance, and anxiety; B95.61 Methicillin susceptible Staphylococcus aureus infection as the cause of diseases classified elsewhere; B96.1 Klebsiella pneumoniae [K. pneumoniae] as the cause of diseases classified elsewhere; I69.328 Other speech and language deficits following cerebral infarction; I69.398 Other sequelae of cerebral infarction; N14.1 Nephropathy induced by other drugs, medicaments and biological substances; T50.8X5A Adverse effect of diagnostic agents, initial encounter; B95.2 Enterococcus as the cause of diseases classified elsewhere; Z95.1 Presence of aortocoronary bypass graft; I25.10 Atherosclerotic heart disease of native coronary artery without angina pectoris; E78.5 Hyperlipidemia, unspecified; Z79.84 Long term (current) use of oral hypoglycemic drugs; I45.81 Long QT syndrome; I25.2 Old myocardial infarction; I70.203 Unspecified atherosclerosis of native arteries of extremities, bilateral legs; H54.61 Unqualified visual loss, right eye, normal vision left eye
CPT/HCPCS: 36415; 70450-TC; 71045-TC-FY; 73630-TC-RT-FY; 75635-TC; 80048; 80053; 80061; 81003; 81015; 82272; 82550; 82607; 82962; 82977; 83605; 83721; 83735; 83880; 84100; 84443; 84484; 85025; 85610; 85651; 86140; 86593; 87040; 87070; 87086; 87186; 87205; 93005; 93010; 93306-TC; 93880-TC; 93925-TC; 97116-GP; 97161-GP; 99284-25; G0480; J1644; J7030